=== PATIENT | female | born 1970 | race Caucasian/White ===

== ENCOUNTER 2023-07-16 08:21 | Outpatient (OUT) | payer BC, SELFPAY ==
--- NOTE | 2023-07-16 08:25 | MM_ITS ---
Patient Name: KRISTINA ESPOSITO MR#: [id number] : 1970 Exam Date: 07/16/2023 Ordering Doctor: DR Kar Myles . RADIOLOGY REPORT PROCEDURE: MM TOMOSYNTHESIS SCREENING BI COMPARISON: MG MAMM SCREEN URSULA W CAD, 08/29/2019. MG MAMM SCREEN 3D URSULA CAD, 05/16/2022. INDICATIONS: Screening Calculator Name NCI Breast Cancer Risk Assessment Tool 5 Year Breast Cancer Risk 0.60% Lifetime Breast Cancer Risk 5.20% Personal Breast Cancer No Personal Ovarian Cancer No Treatments None Family Cancers Grandmother-paternal with skin cancer at age ~60. LOCATION: [facility] BREAST COMPOSITION: Heterogeneously dense,which may obscure small masses. FINDINGS: DIAGNOSTIC CATEGORY 2--BENIGN FINDING. NO CHANGE FROM COMPARISON. Scattered benign-appearing calcifications are present. Scattered benign-appearing lymph nodes are present. RIGHT BREAST: No significant suspicious finding. LEFT BREAST: No significant suspicious finding. RECOMMENDATIONS: ROUTINE MAMMOGRAM AND CLINICAL EVALUATION IN 12 MONTHS. PLEASE NOTE: A NORMAL MAMMOGRAM DOES NOT EXCLUDE THE POSSIBILITY OF BREAST CANCER. A CLINICALLY SUSPICIOUS PALPABLE LUMP SHOULD BE BIOPSIED. Dictated by: Woody Lomax MD on 07/17/2023 at 08:23 Approved by: Woody Lomax MD on 07/17/2023 at 08:24
[2023-07-16 09:23] LABS: Basophils Absolute Auto 0.1 10^3/uL (0.0-0.1); Basophils Percent Auto 0.6 % (0.2-2.0); Eosinophils Absolute Auto 0.2 10^3/uL (0.0-0.7); Eosinophils Percent Auto 3.1 % (0.9-7.0); Hematocrit 43.6 % (36.0-48.0); Hemoglobin 14.6 g/dL (12.0-16.0); Immature Granulocytes Abs Auto 0.02 10^3/uL (0.00-0.03); Immature Granulocytes Pct Auto 0.3 % (0.0-0.5); Lymphocytes Absolute Auto 2.8 10^3/uL (1.2-3.8); Lymphocytes Percent Auto 35.4 % (20.5-60.0); Mean Corpuscular HGB Conc 33.5 g/dL (29.9-35.2); Mean Corpuscular Hemoglobin 28.6 pg (26.7-34.0); Mean Corpuscular Volume 85.5 fL (81.0-99.0); Mean Platelet Volume 9.4 fL (9.5-13.5); Monocytes Absolute Auto 0.5 10^3/uL (0.3-0.8); Monocytes Percent Auto 6.3 % (1.7-12.0); Neutrophils Absolute Auto 4.2 10^3/uL (1.4-6.5); Neutrophils Percent Auto 54.3 % (43.0-75.0); Platelet Count 241 10^3/uL (150-450); Red Cell Distribution Width 11.9 % (11.0-15.0); White Blood Count 7.8 10^3/uL (4.0-11.0)
[2023-07-16 10:00] LABS: Estimated Average Glucose 140 mg/dL; Glycohemoglobin A1C 6.5 % (4.5-6.2)
[2023-07-16 10:26] LABS: Anion Gap 13.2; BUN Creatinine Ratio 8.2; Calcium 8.9 mg/dL (8.5-10.1); Carbon Dioxide 26.8 mmol/L (21.0-32.0); Chloride 103 mmol/L (98-107); Chol HDL Ratio 4.8; Cholesterol 259 mg/dL (<=200); Estimated GFR (African America >60 (>=60); Estimated GFR (Non-African Ame >60 (>=60); Free T3 2.43 pg/mL (2.18-3.98); Glucose 126 mg/dL (74-106); HDL Cholesterol 54 mg/dL (40-60); Sodium 139 mmol/L (136-145); Thyroid Stimulating Hormone 3.335 uIU/mL (0.358-3.740); Triglycerides 127 mg/dL (<=150); VLDL CHOLESTEROL 25.4 mg/dL
== END 2023-07-16 08:22 | disposition home or self-care (01) ==
LOC: MAMMO 08:21
PROVIDERS: PCP Family Medicine; Visit Provider Family Medicine
DX: Z12.31 Encounter for screening mammogram for malignant neoplasm of breast (principal); Z00.00 Encounter for general adult medical examination without abnormal findings; E03.9 Hypothyroidism, unspecified; Z80.8 Family history of malignant neoplasm of other organs or systems
CPT/HCPCS: 36415; 77063; 77067; 80048; 80061; 83036; 84439; 84443; 84481; 85025

== ENCOUNTER 2024-10-09 12:54 | Outpatient (OUT) | payer BC, SELFPAY ==
[2024-10-09 13:09] LABS: Basophils Absolute Auto 0.1 10^3/uL (0.0-0.1); Basophils Percent Auto 0.6 % (0.2-2.0); Eosinophils Absolute Auto 0.3 10^3/uL (0.0-0.7); Eosinophils Percent Auto 2.7 % (0.9-7.0); Hematocrit 44.8 % (36.0-48.0); Hemoglobin 15.8 g/dL (12.0-16.0); Immature Granulocytes Abs Auto 0.03 10^3/uL (0.00-0.03); Immature Granulocytes Pct Auto 0.3 % (0.0-0.5); Lymphocytes Absolute Auto 3.7 10^3/uL (1.2-3.8); Lymphocytes Percent Auto 37.7 % (20.5-60.0); Mean Corpuscular HGB Conc 35.3 g/dL (29.9-35.2); Mean Corpuscular Hemoglobin 29.6 pg (26.7-34.0); Mean Corpuscular Volume 83.9 fL (81.0-99.0); Mean Platelet Volume 9.9 fL (9.5-13.5); Monocytes Absolute Auto 0.5 10^3/uL (0.3-0.8); Monocytes Percent Auto 5.5 % (1.7-12.0); Neutrophils Absolute Auto 5.2 10^3/uL (1.4-6.5); Neutrophils Percent Auto 53.2 % (43.0-75.0); Platelet Count 277 10^3/uL (150-450); Red Blood Count 5.34 10^6/uL (4.20-5.40); Red Cell Distribution Width 12.2 % (11.0-15.0); White Blood Count 9.8 10^3/uL (4.0-11.0)
[2024-10-09 13:25] LABS: Estimated Average Glucose 157 mg/dL; Glycohemoglobin A1C 7.1 % (4.5-6.2)
[2024-10-09 14:20] LABS: Alanine Aminotransferase 108 U/L (14-59); Albumin Globulin Ratio 0.8; Albumin Level 3.8 g/dL (3.4-5.0); Alkaline Phosphatase 128 U/L (46-116); Anion Gap 7.8; Aspartate Amino Transferase 58 U/L (15-37); BUN Creatinine Ratio 10.3; Bilirubin Direct 0.1 mg/dL (0.0-0.2); Bilirubin Total 0.7 mg/dL (0.2-1.0); Calcium 9.7 mg/dL (8.5-10.1); Carbon Dioxide 30.9 mmol/L (21.0-32.0); Chloride 98 mmol/L (98-107); Chol HDL Ratio 4.6; Cholesterol 257 mg/dL (<=200); Estimated GFR (African America 59 (>=60 mL/min/1.73m^2); Estimated GFR (Non-African Ame 49 (>=60 mL/min/1.73m^2); Globulin 4.6 g/dL; Glucose 167 mg/dL (74-106); HDL Cholesterol 56 mg/dL (40-60); Potassium 3.7 mmol/L (3.5-5.1); Sodium 133 mmol/L (136-145); Thyroid Stimulating Hormone 4.133 uIU/mL (0.358-3.740); Total Protein 8.4 g/dL (6.4-8.2); Triglycerides 144 mg/dL (<=150); VLDL CHOLESTEROL 28.8 mg/dL
[2024-10-09 14:38] LABS: Free T4 1.12 ng/dL (0.76-1.46)
== END 2024-10-09 12:55 | disposition home or self-care (01) ==
LOC: LAB 12:54
PROVIDERS: PCP Family Medicine; Visit Provider Family Medicine
DX: Z00.00 Encounter for general adult medical examination without abnormal findings (principal); E03.9 Hypothyroidism, unspecified
CPT/HCPCS: 36415; 80048; 80061; 80076; 83036; 84439; 84443; 85025

== ENCOUNTER 2024-11-14 08:35 | Outpatient (OUT) | payer BC, SELFPAY ==
--- NOTE | 2024-11-14 08:45 | US_ITS ---
The [address] [address] Patient Name: KRISTINA ESPOSITO MRN: [id number] date: 1970 Sex: F Assigned Patient Location: US Current Patient Location: Accession/Order Number: [id number] Exam Date: 11/14/2024 09:28 Report Date: 11/14/2024 09:30 At the request of: ANTOINETTE YADAV MD Procedure: US right upper quadrant EXAMINATION TYPE: US right upper quadrant DATE OF EXAM ORDERED: 11/14/2024 9:08 AM HISTORY: Elevated Liver Function Test, COMPARISON: NONE TECHNIQUE: Realtime imaging limited to the right upper quadrant was performed. FINDINGS: The gallbladder appears within normal limits without evidence of cholelithiasis. The gallbladder wall measures 2 mm in thickness. The common bile but measures 3 mm in diameter. No intrahepatic or extrahepatic biliary dilatation is seen. The liver is echogenic in respect to the right renal cortex suggesting hepatic steatosis. There is hepatopedal flow the main portal vein. Partial visualization of the right kidney reveals no gross hydronephrosis. Partial visualization of the pancreas reveals no abnormality. US/US right upper quadrant IMPRESSION: No sonographic evidence of acute cholecystitis. Findings suggest hepatic steatosis. Impression dictated by: Denzel Christianson M.D. 11/14/2024 9:30 AM Dictation Location: [place] [address] Electronically authenticated by: [id number] Y Date: 11/14/2024 09:30
--- OUTSIDE RECORDS SUMMARY | 2024-11-14 08:54 | XMS_ITS | CCD ---
Author Organization [facility] Care Team Providers Care Architecture Instructor Name Role Phone DR KAR YADAV Admitting Unavailable LEIF, DR KAR De La Rosa Attending Unavailable LEIF, DR KAR De La Rosa Primary Care Unavailable LEIF, DR KAR De La Rosa Consulting Unavailable LEIF, DR KAR De La Rosa Admitting Unavailable LEIF, DR KAR De La Rosa Attending Unavailable LEIF, DR KAR De La Rosa Primary Care Unavailable WEST, DR ANANTH Melo Consulting Unavailable LEIF, DR KAR De La Rosa Consulting Unavailable Kar Yadav MD Primary Care Provider Kar Yadav MD Unavailable Kar Yadav MD Primary Care Provider [phone] Kar Yadav MD Unavailable KAR YADAV Attending Unavailable ASHLEE VELAZCO Attending Unavailable LEIF, KAR Attending Unavailable Medications Current Medications Medication Drug Class(es) Dates Sig (Normalized) Sig (Original) atorvastatin 40 mg oral tablet (2 sources) HMG-CoA Reductase Inhibitor Start: 10-10-19 25 take 1 tablet by mouth at bedtime atorvastatin (Lipitor) 40 MG tablet Indications: Dyslipidemia (CMS/HCC) Take 1 tablet (40 mg) by mouth at bedtime 30 tablet 5 10/09/2024 Active codeine phosphate 2 mg/ml / guaiFENesin 20 mg/ml oral solution (2 sources) Opioid Agonist Start: 08-07-19 24 End: 08-14-19 24 take 10 mL by mouth every six hours for cough guaiFENesin-codeine (Robitussin-AC) 100-10 MG/5ML syrup Indications: Acute bronchitis due to other specified organisms Take 10 mL by mouth every 6 (six) hours if needed for cough for up to 7 days 150 mL 0 08/07/2023 08/14/2023 Active hydroCHLOROthiazide 25 mg oral tablet (6 sources) Thiazide Diuretic Start: 10-08-19 take 1 tablet by mouth once daily hydroCHLOROthiazide (HYDRODiuril) 25 MG tablet Indications: Benign essential hypertension (CMS/HCC) Take 1 tablet (25 mg) by mouth Daily 30 tablet 3 10/07/2024 Active levoFLOXacin 750 mg oral tablet (2 sources) Quinolone Antimicrobial Start: 08-07-19 End: 08-14-19 take 1 tablet by mouth in the morning levoFLOXacin (Levaquin) 750 MG tablet Indications: Acute bronchitis due to other specified organisms Take 1 tablet (750 mg) by mouth in the morning for 7 days. 7 tablet 0 08/07/2023 08/14/2023 Active levothyroxine sodium 0.075 mg oral tablet (15 sources) l-Thyroxine Start: 10-10-19 take 1 tablet by mouth once daily levothyroxine (Synthroid, Levoxyl) 75 MCG tablet Indications: Adult hypothyroidism (CMS/HCC) Take 1 tablet (75 mcg) by mouth Daily 90 tablet 3 10/09/2024 Active Start: 04-07-2024 End: 04-07-2025 take 1 tablet by mouth once daily levothyroxine (Synthroid, Levoxyl) 50 MCG tablet Indications: Adult hypothyroidism (CMS/HCC) Take 1 tablet (50 mcg) by mouth Daily 90 tablet 3 04/07/2024 10/09/2024 Discontinued (Reorder) Start: 03-20-2023 take 1 tablet by daryn th in the morning levothyroxine (Synthroid, Levoxyl) 50 MCG tablet Take 50 mcg by mouth in the morning. 03/20/2023 Active predniSONE 50 mg oral tablet (2 sources) Start: 08-07-2023 End: 08-13-2023 take 1 tablet by mouth in the morning predniSONE (Deltasone) 50 MG tablet Indications: Acute bronchitis due to other specified organisms Take 1 tablet (50 mg) by mouth in the morning for 6 days. 6 tablet 0 08/07/2023 08/13/2023 Active 72 hr scopolamine 0.0139 mg/hr transdermal system (6 sources) Anticholinergic Start: 10-07-2024 scopolamine (Transderm-Scop) 1 mg/72 hr patch 72 hour patch Indications: Motion sickness, initial encounter Place 1 patch on the skin every 3rd (third) day if needed (nausea) 4 patch 2 10/07/2024 Active 0.25 mg, 0.5 mg dose 1.5 ml semaglutide 1.34 mg/ml pen injector (7 sources) Start: 10-07-2024 End: 10-09-2024 semaglutide (Ozempic) 2 MG/1.5ML solution pen-injector Indications: Type 2 diabetes mellitus with hyperglycemia, without long-term current use of insulin ([facility]) 0.25 mg SC weekly x 4 weeks, then 0.5 mg weekly 1 each 3 10/09/2024 Active Problems Active Problems Problem Classification Problem Date Documented Date Episodic/Chronic Diabetes mellitus with complications (5 sources) Hyperglycemia due to type 2 diabetes mellitus; Translations: [Type 2 diabetes mellitus with hyperglycemia] Onset: 08-07-2023 10-09-2024 Chronic Disorders of lipid metabolism (15 sources) Dyslipidemia; Translations: [Hyperlipidemia, unspecified] Onset: 08-07-2023 08-07-2023 Chronic Essential hypertension (8 sources) Benign essential hypertension; Translations: [Essential (primary) hypertension] Onset: 08-07-2023 10-07-2024 Chronic Other injuries and conditions due to external causes (2 sources) Motion sickness; Translations: [Motion sickness, initial encounter] 10-07-2024 Episodic Other screening for suspected conditions (not mental disorders or infectious disease) (8 sources) Encounter for screening mammogram for malignant neoplasm of breast; Translations: [Cancer cervix screening status] Onset: 05-16-2022 Episodic Residual codes; unclassified (1 source) Family history of malignant neoplasm of other organs or systems; Translations: [FAM HX MALIG NEOPLASM OTH ORGN/SYS] Onset: 05-19-2022 Episodic Thyroid disorders (18 sources) Hypothyroidism, unspecified; Translations: [Hypothyroidism] Onset: 04-23-2022 08-07-2023 Chronic Past or Other Problems Problem Classification Problem Date Documented Da te Episodic/Chronic Acute bronchitis (15 sources) Acute infective bronchitis; Translations: [Acute bronchitis due to other specified organisms] Onset: 08-07-2023 Resolved: 04-04-2024 08-07-2023 Episodic Diabetes mellitus without complication (15 sources) Prediabetes; Translations: [Prediabetes] Onset: 08-07-2023 08-07-2023 Episodic Other circulatory disease (8 sources) Elevated blood-pressure reading without diagnosis of hypertension; Translations: [Elevated blood-pressure reading, without diagnosis of hypertension] Onset: 08-07-2023 08-07-2023 Episodic Results Test Name Value Interpretation Reference Range Facility ALL CBC WITH AUTO DIFFon BASOPHILS ABSOLUTE AUTO 0.1 [facility] Basophils/100 WBC (Bld) 0.6 % 0.2 - 2.0 % [facility] Eosinophils/100 WBC (Bld) 2.7 % 0.9 - 7.0 % [facility] Erythrocyte distribution width (RBC) [Ratio] 12.2 % 11.0 - 15.0 % [facility] Hematocrit (Bld) [Volume fraction] 44.8 % 36.0 - 48.0 % [facility] Hemoglobin (Bld) [Mass/Vol] 15.8 g/dL 12.0 - 16.0 g/dL [facility] IMMATURE GRANULOCYTES ABS AUTO 0.03 [facility] Immature granulocytes/100 WBC (Bld) 0.3 % 0.0 - 0.5 % [facility] Interpretation and review of laboratory results Abnormal [facility] LYMPHOCYTES ABSOLUTE AUTO 3.7 [facility] Lymphocytes/100 WBC (Bld) 37.7 % 20.5 - 60.0 % [facility] MCH (RBC) [Entitic mass] 29.6 pg 26.7 - 34.0 pg [facility] MCHC (RBC) [Mass/Vol] 35.3 g/dL High 29.9 - 35.2 g/dL [facility] MCV (RBC) [Entitic vol] 83.9 fL 81.0 - 99.0 fL [facility] MONOCYTES ABSOLUTE AUTO 0.5 [facility] Monocytes/100 WBC (Bld) 5.5 % 1.7 - 12.0 % [facility] NEUTROPHILS ABSOLUTE AUTO 5.2 [facility] Neutrophils/100 WBC (Bld) 53.2 % 43.0 - 75.0 % [facility] Platelet mean volume (Bld) [Entitic vol] 9.9 fL 9.5 - 13.5 fL [facility] are [facility] EO # 0.3 [facility] PLT 277 [facility] RBC 5.34 [facility] WBC 9[facility]8 [facility] MG MAMM SCREEN 3D URSULA CADon 05-16-2022 MG MAMM SCREEN 3D URSULA CAD Patient: WENDIE HUBBARD Exam Date: 05/16/2022 : 1970 Gender:F Ordering : DR KAR YADAV . Admission #: [id number] Family : Order #: [id number] CLICK HERE TO VIEW EXAM RADIOLOGY REPORT PROCEDURE: MAMMOGRAM SCREENING 3D BILATERAL CAD COMPARISON: MG MAMM SCREEN URSULA W CAD, 08/29/2019. INDICATIONS: Screening mammography Calculator Name NCI Breast Cancer Risk Assessment Tool 5 Year Breast Cancer Risk 0.50% Lifetime Breast Cancer Risk 5.30% Personal Breast Cancer No Personal Ovarian Cancer No Treatments None Family Cancers Grandmother-paternal with skin cancer at age 60. LOCATION: [facility] BREAST COMPOSITION: Heterogeneously dense,which may obscure small masses. FINDINGS: DIAGNOSTIC CATEGORY 1--NEGATIVE. NO CHANGE FROM COMPARISON ASSESSMENT. Scattered benign-appearing calcifications are present. Scattered benign-appearing lymph nodes are present. RIGHT BREAST: No significant suspicious finding. LEFT BREAST: No significant suspicious finding. RECOMMENDATIONS: ROUTINE MAMMOGRAM AND CLINICAL EVALUATION IN 12 MONTHS. PLEASE NOTE: A NORMAL MAMMOGRAM DOES NOT EXCLUDE THE POSSIBILITY OF BREAST CANCER. A CLINICALLY SUSPICIOUS PALPABLE LUMP SHOULD BE BIOPSIED. Dictated by: Ananth Lomax MD on 05/16/2022 at 10:46 Approved by: Ananth Lomax MD on 05/16/2022 at 10:49 Normal [facility] CBC AUTO DIFFon 04-19-2022 BASO # 0.0 103/ul Normal 0.0-0.1 [facility] Comment on above: Performed By: #### C BC #### [facility] [address] [place] [address] Dr. Cash Gray Basophils/100 WBC (Bld) 0.6 % Normal 0.2-2.0 [facility] Comment on above: Performed By: #### C BC #### [facility] [address] [place] [address] Dr. Cash Gray EO # 0.3 103/ul Normal 0.0-0.7 [facility] Comment on above: Performed By: #### C BC #### [facility] [address] [place] [address] Dr. Cash Gray Eosinophils/100 WBC (Bld) 3.9 % Normal 0.9-7.0 [facility] Comment on above: Performed By: #### C BC #### [facility] [address] [place] [address] Dr. Cash Gray Erythrocyte distribution width (RBC) [Ratio] 12.3 % Normal 11.0-15.0 [facility] Comment on above: Performed By: #### C BC #### [facility] [address] [place] [address] Dr. Cash Gray Hematocrit (Bld) [Volume fraction] 43.1 % Normal 36.0-48.0 [facility] Comment on above: Performed By: #### C BC #### [facility] [address] [place] [address] Dr. Cash Gray Hemoglobin (Bld) [Mass/Vol] 14.3 g/dL Normal 12.0-16.0 [facility] Comment on above: Performed By: #### C BC #### [facility] [address] [place] [address] Dr. Cash Gray IG # 0.02 10e3/ul Normal 0.00-0.03 [facility] Comment on above: Performed By: #### C BC #### [facility] [address] [place] [address] Dr. Cash Gray IG % 0.3 % Normal 0.0-0.5 [facility] Comment on above: Performed By: #### C BC #### [facility] [address] [place] [address] Dr. Cash Gray LYMPH # 2.6 103/ul Normal 1.2-3.8 [facility] Comment on above: Performed By: #### C BC #### [facility] [address] [place] [address] Dr. Cash Gray Lymphocytes/100 WBC (Bld) 36.3 % Normal 20.5-60.0 [facility] Comment on above: Performed By: #### C BC #### [facility] [address] [place] [address] Dr. Cash Gray MANUAL DIFF REQ NO Normal [facility] Comment on above: Performed By: #### C BC #### [facility] [address] [place] [address] Dr. Cash Gray MCH (RBC) [Entitic mass] 28.7 pg Normal 26.7-34.0 [facility] Comment on above: Performed By: #### C BC #### [facility] [address] [place] [address] Dr. Cash Gray MCHC (RBC) [Mass/Vol] 33.2 g/dL Normal 29.9-35.2 [facility] Comment on above: Performed By: #### C BC #### [facility] [address] [place] [address] Dr. Cash Gray MCV (RBC) [Entitic vol] 86.5 fL Normal 81.0-99.0 [facility] Comment on above: Performed By: #### C BC #### [facility] [address] [place] [address] Dr. Cash Gray MONO # 0.4 103/ul Normal 0.3-0.8 [facility] Comment on above: Performed By: #### C BC #### [facility] [address] [place] [address] Dr. Cash Gray Monocytes/100 WBC (Bld) 5.7 % Normal 1.7-12.0 [facility] Comment on above: Performed By: #### C BC #### [facility] [address] [place] [address] Dr. Cash Gray NEUT # 3.8 103/ul Normal 1.4-6.5 [facility] Comment on above: Performed By: #### C BC #### [facility] [address] [place] [address] Dr. Cash Gray Neutrophils/100 WBC (Bld) 53.2 % Normal 43.0-75.0 [facility] Comment on above: Performed By: #### C BC #### [facility] [address] [place] [address] Dr. Cash Gray Platelet mean volume (Bld) [Entitic vol] 10.6 fL Normal 9.5-13.5 [facility] Comment on above: Performed By: #### C BC #### [facility] [address] [place] [address] Dr. Cash Gray PLT 231 103/ul Normal 150-450 [facility] Comment on above: Performed By: #### C BC #### [facility] [address] [place] [address] Dr. Cash Gray RBC 4.98 106/ul Normal 4.20-5.40 [facility] Comment on above: Performed By: #### C BC #### [facility] [address] [place] [address] Dr. Cash Gray WBC 7.2 103/ul Normal 4.0-11.0 [facility] Comment on above: Performed By: #### C BC #### [facility] [address] [place] [address] Dr. Cash Gray FREE T3on 04-19-2022 FREE T3 2.65 pg/mlL Normal 2.18-3.98 [facility] Comment on above: Performed By: #### B MP, LIVER, LIPID, TSH, FT3 #### [facility] [address] [place] [address] Dr. Cash Gray FREE T4on 04-19-2022 Free T4 [Mass/Vol] 1.12 ng/dL Normal 0.76-1.46 [facility] Comment on above: Performed By: #### F T4 #### [facility] [address] [place] [address] Dr. Cash Gray GLYCOHEMOGLOBIN A1Con 2021 ADA RECOMMENDATION SEE BELOW Normal [facility] Comment on above: Result Comment: ADA RECOMMENDED LIMIT 4.0 - 6.0 ADA THERAPEUTIC TARGET < 7.0 ACTION SUGGESTED > 7.0 Performed By: #### A 1C #### [facility] [address] [place] [address] Dr. Cash Gray HbA1c (Bld) [Mass fraction] 6.0 % Normal 4.5-6.2 [facility] Comment on above: Performed By: #### A 1C #### [facility] [address] [address] [address] Cash Gray LIPID PROFILEon 04-19-2022 CHOL-HDL RATIO NORM SEE BELOW Normal [facility] Comment on above: Result Comment: 3.3 - 4.4 LOW RISK 4.4 - 7.1 AVERAGE RISK 7.1 - 11.0 MODERATE RISK >11.0 HIGH RISK Performed By: #### B MP, LIVER, LIPID, TSH, FT3 #### [facility] [address] [address] [address] Cash Gray Cholesterol [Mass/Vol] 260 mg/dL Critically high <=200 [facility] Comment on above: Performed By: #### B MP, LIVER, LIPID, TSH, FT3 #### [facility] [address] [address] [address] Cash Gray Cholesterol in HDL [Mass/Vol] 50 mg/dL Normal 40-60 [facility] Comment on above: Performed By: #### B MP, LIVER, LIPID, TSH, FT3 #### [facility] [address] [address] [address] Cash Gray Cholesterol in LDL [Mass/Vol] 190.0 mg/dL Normal [facility] Comment on above: Performed By: #### B MP, LIVER, LIPID, TSH, FT3 #### [facility] [address] [address] [address] Cash Gray Cholesterol.total/Ch olesterol in HDL [Mass ratio] 5.2 {ratio} Normal [facility] Comment on above: Performed By: #### B MP, LIVER, LIPID, TSH, FT3 #### [facility] [address] [address] [address] Cash Gray HDL NORMAL > or = 60 mg/dl - LOW CARDIOVASCULAR RISK <40 mg/dl - HIGH CARDIOVASCULAR RISK Normal [facility] Comment on above: Performed By: #### B MP, LIVER, LIPID, TSH, FT3 #### [facility] [address] [address] [address] Cash Gray LDL CALC NORMAL SEE BELOW Normal [facility] Comment on above: Result Comment: <100 mg/dl OPTIMAL 100 - 129 mg/dl NEAR OR ABOVE OPTIMAL 130 - 159 mg/dl BORDERLINE HIGH 160 - 189 mg/dl HIGH >190 mg/dl VERY HIGH Performed By: #### B MP, LIVER, LIPID, TSH, FT3 #### [facility] [address] [address] [address] Cash Gray Triglyceride [Mass/Vol] 100 mg/dL Normal <=150 [facility] Comment on above: Performed By: #### B MP, LIVER, LIPID, TSH, FT3 #### [facility] [address] [address] [address] Cash Gray VLDL CALC 20.0 mg/dL Normal [facility] Comment on above: Performed By: #### B MP, LIVER, LIPID, TSH, FT3 #### [facility] [address] [address] [address] Cash Gray LIVER PROFILEon 04-19-2022 Albumin [Mass/Vol] 3.5 g/dL Normal 3.4-5.[address] [facility] Comment on above: Performed By: #### B MP, LIVER, LIPID, TSH, FT3 #### [facility] [address] [address] [address] Cash Gray Albumin/Globulin [Mass ratio] 0.8 {ratio} Normal [facility] Comment on above: Performed By: #### B MP, LIVER, LIPID, TSH, FT3 #### [facility] [address] [address] [address] Cash Gray ALP [Catalytic activity/Vol] 113 U/L Normal 46-116 [facility] Comment on above: Performed By: #### B MP, LIVER, LIPID, TSH, FT3 #### [facility] [address] [address] [address] Cash Gray ALT [Catalytic activity/Vol] 61 U/L Critically high 14-59 [facility] Comment on above: Performed By: #### B MP, LIVER, LIPID, TSH, FT3 #### [facility] [address] [address] [address] Cash Gray AST [Catalytic activity/Vol] 26 U/L Normal 15-37 [facility] Comment on above: Performed By: #### B MP, LIVER, LIPID, TSH, FT3 #### [facility] [address] [place] [address] Dr. Cash VERGARAI, CONJUGATED 0.1 mg/dL Normal 0.0-0.2 [facility] Comment on above: Performed By: #### B MP, LIVER, LIPID, TSH, FT3 #### [facility] [address] [place] [address] Dr. Cash Gray Bilirubin [Mass/Vol] 0.2 mg/dL Normal 0.2-1.0 [facility] Comment on above: Performed By: #### B MP, LIVER, LIPID, TSH, FT3 #### [facility] [address] [place] [address] Dr. Cash Gray Globulin (S) [Mass/Vol] 4.3 g/dL Normal [facility] Comment on above: Performed By: #### B MP, LIVER, LIPID, TSH, FT3 #### [facility] [address] [place] [address] Dr. Cash Gray Protein [Mass/Vol] 7.8 g/dL Normal 6.4-8.2 [facility] Comment on above: Performed By: #### B MP, LIVER, LIPID, TSH, FT3 #### [facility] [address] [place] [address] Dr. Cash Gray PROF CHEM 8 (BAS METB)on Anion gap [Moles/Vol] 11.1 mmol/L Normal [facility] Comment on above: Performed By: #### B MP, LIVER, LIPID, TSH, FT3 #### [facility] [address] [place] [address] Dr. Cash Gray Calcium [Mass/Vol] 8.9 mg/dL Normal 8.5-10.1 [facility] Comment on above: Performed By: #### B MP, LIVER, LIPID, TSH, FT3 #### [facility] [address] [place] [address] Dr. Cash Gray Chloride [Moles/Vol] 104 mmol/L Normal 98-107 [facility] Comment on above: Performed By: #### B MP, LIVER, LIPID, TSH, FT3 #### [facility] [address] [place] [address] Dr. Cash Gray CO2 [Moles/Vol] 24.0 mmol/L Normal 21.0-32.0 [facility] Comment on above: Performed By: #### B MP, LIVER, LIPID, TSH, FT3 #### [facility] [address] [place] [address] Dr. Cash Gray Creatinine [Mass/Vol] 0.91 mg/dL Normal 0.55-1.02 [facility] Comment on above: Performed By: #### B MP, LIVER, LIPID, TSH, FT3 #### [facility] [address] [place] [address] Dr. Cash Gray EGFR-AF MALAGASY >60 Normal >=60 [facility] Comment on above: Performed By: #### B MP, LIVER, LIPID, TSH, FT3 #### [facility] [address] [place] [address] Dr. Cash Gray EGFR-NON AF MALAGASY >60 Normal >=60 [facility] Comment on above: Performed By: #### B MP, LIVER, LIPID, TSH, FT3 #### [facility] [address] [place] [address] Dr. Cash Gray Glucose [Mass/Vol] 126 mg/dL Normal [facility] Comment on above: Performed By: #### B MP, LIVER, LIPID, TSH, FT3 #### [facility] [address] [place] [address] Dr. Cash Gray Performed By: #### A 1C #### [facility] [address] [place] [address] Dr. Cash Gray Potassium [Moles/Vol] 4.1 mmol/L Normal 3.5-5.1 [facility] Comment on above: Performed By: #### B MP, LIVER, LIPID, TSH, FT3 #### [facility] [address] [place] [address] Dr. Cash Gray Sodium [Moles/Vol] 135 mmol/L Critically low 136-145 [facility] Comment on above: Performed By: #### B MP, LIVER, LIPID, TSH, FT3 #### [facility] [address] [address] [address] Cash Gray Urea nitrogen [Mass/Vol] 13.0 mg/dL Normal 7.0-18.0 [facility] Comment on above: Performed By: #### B MP, LIVER, LIPID, TSH, FT3 #### [facility] [address] [address] [address] Cash Gray Urea nitrogen/Creatinine [Mass ratio] 14.3 mg/mg Normal [facility] Comment on above: Performed By: #### B MP, LIVER, LIPID, TSH, FT3 #### [facility] [address] [place] [address] Dr. Cash Gray TSHon 04-19-2022 TSH 2.830 uIU/mL Normal 0.358-3.740 [facility] Comment on above: Performed By: #### B MP, LIVER, LIPID, TSH, FT3 #### [facility] [address] [place] [address] Dr. Cash Gray Vital Signs Date Time Vital Sign Value Performing Clinician Mykel camacho 10-07-2024 14:32-0400 Body height 167.6 cm Kar Yadav MD Work Phone: [facility] 10-07-2024 14:32-0400 Body mass index (BMI) [Ratio] 28.89 kg/m2 Kar Yadav MD Work Phone: [facility] 10-07-2024 14:32-0400 Body temperature 97.11 [degF] Kar Yadav MD Work Phone: [facility] 10-07-2024 14:32-0400 Body weight 81.19 kg Kar Yadav MD Work Phone: [facility] 10-07-2024 14:32-0400 Diastolic blood pressure 106 mm[Hg] Kar Yadav MD Work Phone: [facility] 10-07-2024 14:32-0400 Heart rate 108 /min Kar Yadav MD Work Phone: [facility] 10-07-2024 14:32-0400 Respiratory rate 22 /min Kar Yadav MD Work Phone: [facility] 10-07-2024 14:32-0400 SaO2% (BldA) [Mass fraction] 98 % Kar Yadav MD Work Phone: [facility] 10-07-2024 14:32-0400 Systolic blood pressure 200 mm[Hg] Kar Yadav MD Work Phone: [facility] 04-15-2024 10:12-0400 Body height 167.6 cm Ashlee Velazco DO Work Phone: [facility] 04-15-2024 10:12-0400 Body mass index (BMI) [Ratio] 28.08 kg/m2 Ashlee Velazco DO Work Phone: [facility] 04-15-2024 10:12-0400 Body weight 78.93 kg Ashlee Velazco DO Work Phone: [facility] 04-15-2024 10:12-0400 Diastolic blood pressure 92 mm[Hg] Ashlee Velazco DO Work Phone: [facility] 04-15-2024 10:12-0400 Systolic blood pressure 138 mm[Hg] Ashlee Velazco DO Work Phone: [facility] 04-04-2024 10:50-0400 Body height 167.6 cm Kar Yadav MD Work Phone: [facility] 04-04-2024 10:50-0400 Body mass index (BMI) [Ratio] 28.41 kg/m2 Kar Yadav MD Work Phone: [facility] 04-04-2024 10:50-0400 Body temperature 97.5 [degF] Kar Yadav MD Work Phone: [facility] 04-04-2024 10:50-0400 Body weight 79.83 kg Kar Yadav MD Work Phone: [facility] 04-04-2024 10:50-0400 Diastolic blood pressure 70 mm[Hg] Kar Yadav MD Work Phone: [facility] 04-04-2024 10:50-0400 Heart rate 100 /min Kar Yadav MD Work Phone: [facility] 04-04-2024 10:50-0400 Respiratory rate 20 /min Kar Yadav MD Work Phone: [facility] 04-04-2024 10:50-0400 SaO2% (BldA) [Mass fraction] 98 % Kar Yadav MD Work Phone: [facility] 04-04-2024 10:50-0400 Systolic blood pressure 130 mm[Hg] Kar Yadav MD Work Phone: [facility] 08-07-2023 15:39-0500 Body height 167.6 cm Kar Yadav MD Work Phone: [facility] 08-07-2023 15:39-0500 Body mass index (BMI) [Ratio] 27.44 kg/m2 Kar Yadav MD Work Phone: [facility] 08-07-2023 15:39-0500 Body temperature 98.71 [degF] Kar Yadav MD Work Phone: [facility] 08-07-2023 15:39-0500 Body weight 77.11 kg Kar Yadav MD Work Phone: [facility] 08-07-2023 15:39-0500 Diastolic blood pressure 90 mm[Hg] Kar Yadav MD Work Phone: [facility] 08-07-2023 15:39-0500 Heart rate 114 /min Kar Yadav MD Work Phone: [facility] 08-07-2023 15:39-0500 SaO2% (BldA) [Mass fraction] 96 % Kar Yadav MD Work Phone: [facility] 08-07-2023 15:39-0500 Systolic blood pressure 150 mm[Hg] Kar Yadav MD Work Phone: [facility] Encounters Encounter Date Encounter Type Care Provider Facility Start: 10-09-2024 End: 10-09-2024 Clinisync Result Encounter Kar Yadav MD Work Phone: [facility] External Department Unsolicited Start: 10-09-2024 End: 10-09-2024 Clinisync Result Encounter Kar Yadav MD Work Phone: [facility] External Department Unsolicited Start: 10-09-2024 End: 10-09-2024 Orders Only Kar Yadav MD Work Phone: [facility] Comment on above: Type 2 diabetes win itus with hyperglycemia, without long-term current use of insulin (CMS/HCC) (Primary Dx) Dyslipidemia (CMS/HC C) (Primary Dx); Adult hypothyroidism (CMS/HCC) Elevated liver funct ion tests (Primary Dx) Start: 10-07-2024 End: 10-07-2024 Office outpatient visit 25 minutes Kar Yadav MD Work Phone: [facility] Comment on above: Benign essential hyp ertension (CMS/HCC) (Primary Dx); Adult hypothyroidism (CMS/HCC); Pre-diabetes; Annual physical exam; Motion sickness, initial encounter Start: 10-07-2024 End: 10-07-2024 Patient encounter procedure Kar Yadav MD Work Phone: [facility] Start: 10-07-2024 End: 10-07-2024 ambulatory KAR YADAV Not Available Start: 10-07-2024 End: 10-07-2024 Bamboo flowsheet Kar Yadav MD Work Phone: [facility] Start: 10-07-2024 End: 10-07-2024 Bamboo flowsheet Kar Yadav MD Work Phone: [facility] Start: 04-15-2024 End: 04-15-2024 Patient encounter status Ashlee Velazco DO Work Phone: [facility] Start: 04-15-2024 End: 04-15-2024 Periodic preventive med est patient 40-64yrs Ashlee Velazco DO Work Phone: [facility] Comment on above: Encounter for gyneco logical examination without abnormal finding (Primary Dx); Screening for malignant neoplasm of cervix; Breast cancer screening by mammogram Start: 04-15-2024 End: 04-15-2024 ambulatory ASHLEE VELAZCO Not Available Start: 04-04-2024 End: 04-04-2024 Bamboo flowsheet Kar Yadav MD Work Phone: [facility] Start: 04-04-2024 End: 04-04-2024 Bamboo flowsheet Kar Yadav MD Work Phone: [facility] Start: 04-04-2024 End: 04-04-2024 Patient encounter procedure Kar Yadav MD Work Phone: [facility] Work Phone: Start: 04-04-2024 End: 04-04-2024 Periodic preventive med est patient 40-64yrs Kar Yadav MD Work Phone: [facility] Comment on above: Annual physical exam (Primary Dx) Start: 04-04-2024 End: 04-04-2024 ambulatory KAR YADAV Not Available Start: 08-07-2023 End: 08-07-2023 Office outpatient visit 15 minutes Kar Yadav MD Work Phone: [facility] Comment on above: Acute bronchitis due to other specified organisms (Primary Dx) Start: 08-07-2023 Bamboo flowsheet Kar Yadav MD Work Phone: [facility] Start: 08-07-2023 Bamboo flowsheet Kar Yadav MD Work Phone: [facility] Start: 05-16-2022 End: 05-17-[address] KAR YADAV Facility:[facility] Start: 04-23-2022 Encounter for genera l adult medical examination without abnormal findings DR KAR YADAV [facility] Start: 04-19-2022 End: 04-20-[address] KAR YADAV Facility:[facility] Start: 04-19-2022 End: 04-20-2022 Encounter for general adult medical examination without abnormal findings DR KAR YADAV Facility:[facility] Procedures Date Procedure Procedure Detail Performing Clinician Start: 10-09-2024 ALL CBC WITH AUTO DIFF Kar Yadav MD Work Phone: Start: 07-17-2023 Mammography Kar phillips MD Work Phone: Start: 04-10-2023 Microscopic observat ion [Identifier] in Cervix by Cyto stain Kar Yadav MD Work Phone: Plan of Treatment Date Care Activity Detail Author Start: 04-15-2029 Screening for malign ant neoplasm of cervix [facility] Start: 04-10-2028 Screening for malign ant neoplasm of cervix [facility] Start: 05-07-2026 Screening for malign ant neoplasm of colon [facility] Start: 04-10-2026 Screening for malign ant neoplasm of cervix Pap Smear [facility] Start: 04-20-2025 End: 04-20-2025 Patient encounter procedure 04/20/2025 11:15 AM EDT Office Visit [facility] [address] [place] [address] Ashlee Velazco DO [address] [place] [address] [facility] Start: 03-02-2025 Influenza vaccination Influenz a Vaccine (Season Ended) [facility] Start: 11-20-2024 End: 11-20-2024 Patient encounter procedure 11/20/2024 11:15 AM EDT Office Visit [facility] [address] [place] [address] Kar Yadav MD [address] [place] [address] [facility] Start: 10-09-2024 End: 10-09-2025 Hepatitis 1996 panel - Serum Hepatitis panel, acute Lab Routine Elevated liver function tests Expected: 10/09/2024 (Approximate), Expires: 10/09/2025 [facility] Comment on above: Expected: 10/09/2024 (Approximate), Expires: 10/09/2025 Start: 10-09-2024 End: 10-09-2025 US Abdomen limited US LIVER Imaging Routine Elevated liver function tests Expected: 10/09/2024, Expires: 10/09/2025 [facility] Work Phone: Comment on above: Expected: 10/09/2024 , Expires: 10/09/2025 Start: 10-07-2024 End: 10-07-2024 Patient encounter procedure 10/07/2024 2:15 PM EDT Office Visit [facility] [address] [place] [address] Kar Yadav MD [address] [place] [address] [facility] Comment on above: Arrived Start: 10-07-2024 End: 10-07-2025 Basic metabolic 1998 panel - Serum or Plasma Basic metabolic panel Lab Routine Annual physical exam Expected: 10/07/2024 (Approximate), Expires: 10/07/2025 [facility] Comment on above: Expected: 10/07/2024 (Approximate), Expires: 10/07/2025 Start: 10-07-2024 End: 10-07-2025 CBC W Auto Differential panel - Blood CBC and differential Lab Routine Annual physical exam Expected: 10/07/2024 (Approximate), Expires: 10/07/2025 [facility] Comment on above: Expected: 10/07/2024 (Approximate), Expires: 10/07/2025 Start: 10-07-2024 End: 10-07-2025 Hemoglobin A1c/Hemoglobin.total in Blood Hemoglobin A1c Lab Routine Annual physical exam Expected: 10/07/2024 (Approximate), Expires: 10/07/2025 [facility] Work Phone: Comment on above: Expected: 10/07/2024 (Approximate), Expires: 10/07/2025 Start: 10-07-2024 End: 10-07-2025 Hepatic function 2000 panel - Serum or Plasma Hepatic function panel Lab Routine Annual physical exam Expected: 10/07/2024 (Approximate), Expires: 10/07/2025 [facility] Comment on above: Expected: 10/07/2024 (Approximate), Expires: 10/07/2025 Start: 10-07-2024 End: 10-07-2025 Lipid 1996 panel - Serum or Plasma Lipid panel Lab Routine Annual physical exam Expected: 10/07/2024 (Approximate), Expires: 10/07/2025 [facility] Comment on above: Expected: 10/07/2024 (Approximate), Expires: 10/07/2025 Start: 10-07-2024 End: 10-07-2025 Thyrotropin [Units/volume] in Serum or Plasma TSH Lab Routine Annual physical exam Expected: 10/07/2024 (Approximate), Expires: 10/07/2025 [facility] Comment on above: Expected: 10/07/2024 (Approximate), Expires: 10/07/2025 Start: 10-07-2024 End: 10-07-2025 Thyroxine (T4) free [Mass/volume] in Serum or Plasma T4, free Lab Routine Adult hypothyroidism (CMS/HCC) Expected: 10/07/2024 (Approximate), Expires: 10/07/2025 [facility] Comment on above: Expected: 10/07/2024 (Approximate), Expires: 10/07/2025 Start: 10-06-2024 End: 10-06-2024 Patient encounter procedure 10/06/2024 9:00 AM EDT Office Visit [facility] [address] [place] [phone] Kar Yadav MD [address] [place] [phone] [facility] Start: 08-07-2024 Screening for malign ant neoplasm of colon Colorectal Cancer Screening [facility] Comment on above: Postponed from 10/10 (Patient Refused) Start: 07-17-2024 Screening for malign ant neoplasm of breast Mammogram [facility] Start: 04-15-2024 End: 04-15-2024 Patient encounter procedure 04/15/2024 10:15 AM EDT Office Visit [facility] [address] [place] [address] Ashlee Velazco DO [address] [place] [address] [facility] Start: 04-04-2024 End: 04-04-2024 Patient encounter procedure 04/04/2024 10:45 AM EDT Office Visit [facility] [address] [place] [address] Kar Yadav MD [address] [place] [phone] Arrived [facility] Comment on above: Arrived Start: 03-02-2024 Influenza vaccination Influenza Vacc ine (#1) [facility] Start: 08-07-2023 End: 08-07-2023 Patient encounter procedure 08/07/2023 3:45 PM EST Office Visit [facility] [address] [place] [address] Kar Yadav MD [address] [place] [phone] Arrived [facility] Comment on above: Arrived Start: 03-02-2023 Influenza vaccination Influenza Vacc ine (#1) [facility] Start: 1993 Screening for malign ant neoplasm of cervix Pap Smear [facility] Start: 10-11-1991 Urine screening for protein Diabetes: Urine Protein Screening [facility] Start: 1982 Glaucoma screening Diabetes: R etinopathy Screening [facility] Start: 1972 Hemoglobin A1c measurement Diabetes: Hemoglobin A1C [facility] Start: 1972 Screening for malign ant neoplasm of colon [facility] IGP, APT HPV,RFX 16/18,45 IGP, APT HPV,RFX 16/18,45 Lab Routine Screening for malignant neoplasm of cervix Ordered: 04/15/2024 [facility] Work Phone: Comment on above: Ordered: 04/15/2024 Payers Date Payer Category Payer [facility] BCBS Memb er Subscriber Plan / Payer (Effective 2021-Present) Name: Wendie Hubbard Jill Relation to Subscriber: Self Name: Stevie Wendie Melchor Payer ID: Not on file Type: Not on file Address: [address] [place] [id number] 2021 Unknown BCBS BCBS xxxxxx [id number] 2021-Present [phone] [address] [place] [id number] 1972 Unknown [id number] 1972 Unknown [id number] 1972 Unknown [id number] 1972 Unknown [id number] 1972 Unknown [id number] 1959 Unknown [id number] Social History Date Type Detail Facility Start: 04-10-2023 Tobacco smoking status MEIS Never sm oked tobacco [facility] Start: 04-10-2023 Tobacco use and exposure Smoke less tobacco non-user [facility] Start: 04-17-2023 End: 10-07-2024 Alcohol intake Ex-drinker (finding) [facility] Start: 08-07-2023 End: 10-02-2024 [facility] of Social function [facility] Start: 08-07-2023 End: 10-02-2024 Humiliation, Afraid, Rape, and Kick questionnaire [HARK] [facility] Within the last year , have you been afraid of your partner or ex-partner? No [facility] Do you belong to any clubs or organizations such as anglican groups, unions, fraternal or athletic groups, or school groups? Yes [facility] Are you now , , , , never or living with a partner? [facility] How often to you hav e a drink containing alcohol? Never [facility] How many standard dr inks containing alcohol do you have on a typical day? Patient does not drink [facility] Do you feel stress - tense, restless, nervous, or anxious, or unable to sleep at night because your mind is troubled all the time - these days [OSQ] Not at all [facility] (I/We) worried wheth er (my/our) food would run out before (I/we) got money to buy more. Never true [facility] Start: 1970 Sex Assigned At Not on file [facility] Do you feel stress - tense, restless, nervous, or anxious, or unable to sleep at night because your mind is troubled all the time - these days [OSQ] Only a little [facility] Clinical Notes 08-07-2023 to 10-07-2024 Kar Yadav MD - 10/07/2024 3:12 PM Nena Yadav MD - 10/07/2024 3:12 PM Nena Yadav MD - 10/07/2024 3:12 PM Nena Yadav MD - 10/07/2024 2:15 PM EDT Note Date & Type Note Facility 10-07-2024 History of Presen t illness Narrative Associated Problem(s): Pre-diabetes Check labs. Start ozempic. Associated Problem(s): Benign essential hypertension (CMS/HCC) BP again elevated and start treatment for HTN with hydrochlorothiazide. Discussed DASH diet. Associated Problem(s): Adult hypothyroidism (CMS/HCC) No signs of low thyroid and check labs. Images from the original note were not included. Subjective Patient ID: Wendie Hubbard is a 53 y.o. female who presents for Follow-up (6 M). Follow up elevated BP and thyroid. Checking BP PRN and typically elevated. BP 150s systolic over 90s diastolic. BP 100/106 today. Weight up 9 pounds in past year. Taking synthroid daily and no signs of abnormal thyroid. No fatigue or changes to skin, nails, or hair. Interested in weight loss medication. Last year labs abnormal and prediabetes. Due for labs. Review of Systems Respiratory: Negative for cough, shortness of breath and wheezing. Cardiovascular: Negative for chest pain and palpitations. Gastrointestinal: Negative for abdominal pain, diarrhea, nausea and vomiting. Genitourinary: Negative for dysuria. Objective Physical Exam Constitutional: General: She is not in acute distress. Appearance: Normal appearance. HENT: Head: Normocephalic. Right Ear: Tympanic membrane normal. Left Ear: Tympanic membrane normal. Eyes: Extraocular Movements: Extraocular movements intact. Pupils: Pupils are equal, round, and reactive to light. Cardiovascular: Rate and Rhythm: Normal rate and regular rhythm. Heart sounds: No murmur heard. No friction rub. No gallop. Pulmonary: Effort: Pulmonary effort is normal. Breath sounds: Normal breath sounds. No wheezing, rhonchi or rales. Abdominal: General: Bowel sounds are normal. There is no distension. Palpations: Abdomen is soft. Tenderness: There is no abdominal tenderness. There is no guarding or rebound. Musculoskeletal: Cervical back: Neck supple. Right lower leg: No edema. Left lower leg: No edema. Neurological: Mental Status: She is alert. Assessment/Plan Problem List Items Addressed This Visit Benign essential hypertension (CMS/HCC) - Primary BP again elevated and start treatment for HTN with hydrochlorothiazide. Discussed DASH diet. Relevant Medications hydroCHLOROthiazide (HYDRODiuril) 25 MG tablet Adult hypothyroidism (CMS/HCC) No signs of low thyroid and check labs. Relevant Orders T4, free Pre-diabetes Check labs. Start ozempic. Relevant Medications semaglutide (Ozempic) 2 MG/1.5ML solution pen-injector Annual physical exam Relevant Orders Hemoglobin A1c Basic metabolic panel CBC and differential Hepatic function panel Lipid panel TSH Other Visit Diagnoses Motion sickness, initial encounter Relevant Medications scopolamine (Transderm-Scop) 1 mg/72 hr patch 72 hour patch documented in this encounter [facility] 04-15-2024 History of Presen t illness Narrative Images from the original note were not included. Ashlee Velazco, DO Obstetrics and Gynecology Wendie Hubbard 1970 04/15/24 [id number] Yearly Wellness Exam Chief Complaint Patient presents with Gynecologic Exam LMP: 2020 HRT: none Last pap 04-10-23 neg. Last mammogram 07-16-23 TB - PCP orders Denies breast, urinary, or bowel concerns. Visit Vitals BP (!) 138/92 Ht 5' 6 Wt 174 lb BMI 28.08 kg/m OB Status Postmenopausal Smoking Status Never BSA 1.92 m OB History Para Term AB Living 4 4 4 SAB IAB Ectopic Multiple Live Births 4 # Outcome Date GA Lbr [place]/2nd Weight Sex Type Anes PTL Lv 4 Para Vag-Spont PIYUSH 3 Para Vag-Spont PIYUSH 2 Para Vag-Spont PIYUSH 1 Para Vag-Spont PIYUSH Obstetric Comments Heaviest weighed 7 lbs 15 oz Current Outpatient Medications Medication Sig Dispense Refill levothyroxine (Synthroid, Levoxyl) 50 MCG tablet Take 1 tablet (50 mcg) by mouth Daily 90 tablet 3 No current facility-administered medications for this visit. No Known Allergies Past Surgical History: Procedure Laterality Date TUBAL LIGATION 2010 VAGINAL DELIVERY x4 Past Medical History: Diagnosis Date Acid reflux Hypothyroidism ([facility]) 2020 x5 Seasonal allergies Varicella zoster ROS Const: Denies appetite change, fever, chills. Allergy: Denies medication reaction. Ocular: Denies visual acuity change. ENT: Denies hearing change. Endoc: Denies weight loss. Resp: Denies dyspnoea, wheezing. Cardiac: Denies angina, palpitations. GI: Denies nausea, vomiting. Haem: Denies bleeding. : Denies incontinence. MSK: Denies arthralgias, joint oedema. Derm: Denies rash, hair loss. Neuro: Denies ataxia, tremor. Also see HPI for elements of ROS documented therein and for details of positive findings, which shall supersede the foregoing. EXAM GENERAL EXAMINATION alert oriented well developed, well nourished. HEAD: normocephalic atraumatic. EYES: sclera anicteric. EARS: no obvious hearing deficit. NECK/THYROID: neck supple no cervical lymphadenopathy no thyromegaly. LYMPH NODES: no axillary, supraclavicular or inguinal adenopathy. SKIN: warm and dry. HEART: regular rate and rhythm. LUNGS: clear to auscultation bilaterally. CHEST:axillary nodes grossly normal. BREASTS:no masses palpable bilaterally, normal nipples bilaterally - everted -finely cystic - dense - well supported- axilla negative. ABDOMEN: soft, nontender, nondistended, no masses palpable. BACK: no costovertebral angle tenderness, no obvious scoliosis/kyphosis. 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 1 pelvic prolapse. RECTAL:normal tone , no masses palpable , only small external hemorrhoids. EXTREMITIES no edema. NEUROLOGIC: alert and oriented. PSYCH: cooperative with exam. ICD-10-CM 1. Encounter for gynecological examination without abnormal finding Z01.419 Pelvic and breast exam completed. Findings of today's exam discussed with the patient. Continue MSBE. Ca/Vit D recommendations reviewed with the patient. The patient is to contact the office with any changes to her gynecological condition or any changes with breast or bleeding. The patient is to return in 1 year or as needed. She discussed some night sweats. Would like to try, OTC, discussed Estroven. May try for 30 days see if helps, if not discontinue. 2. Screening for malignant neoplasm of cervix Z12.4 IGP, APT HPV,RFX 16/18,45 Thinprep collected. Will notify patient if results are abnormal. 3. Breast cancer screening by mammogram Z12.31 Ordered by PCP Entered by Kaycee Spicer MA acting as scribe for Dr. Ashlee Velazco. Signature Kaycee Spicer MA Date 04/15/24 . Time 10:34 AM . The documentation recorded by the scribe accurately reflects the service(s) I personally performed and the decisions I made. Signature Hailey Velazco D.O. Date 04/15/24 Time 5:00PM. documented in this encounter [facility] 04-04-2024 History of Presen t illness Narrative Associated Problem(s): Annual physical exam Due for labs. Cologuard normal May 2023. Discussed proper diet and regular aerobic exercise. Need aerobic exercise 5-6 days a week for 30 minutes at a time. Smaller portions and limit total calories. Tetanus every 10 years. Advised not to smoke. Images from the original note were not included. Subjective Patient ID: Wendie Hubbard is a 53 y.o. female who presents for Annual Exam (wellness). Presents for annual PE. Patient feels well today. Weight unchanged over the past year. Active and walks several days a week. Tries to watch diet and eat healthy. Increased fruits and vegetables. Smaller portions and limits snacking. Tries to limit total daily calories. Due for labs. Review of Systems Respiratory: Negative for cough, shortness of breath and wheezing. Cardiovascular: Negative for chest pain and palpitations. Gastrointestinal: Negative for abdominal pain, diarrhea, nausea and vomiting. Genitourinary: Negative for dysuria. Objective Physical Exam Constitutional: General: She is not in acute distress. Appearance: Normal appearance. HENT: Head: Normocephalic. Right Ear: Tympanic membrane normal. Left Ear: Tympanic membrane normal. Eyes: Extraocular Movements: Extraocular movements intact. Pupils: Pupils are equal, round, and reactive to light. Cardiovascular: Rate and Rhythm: Normal rate and regular rhythm. Heart sounds: No murmur heard. No friction rub. No gallop. Pulmonary: Effort: Pulmonary effort is normal. Breath sounds: Normal breath sounds. No wheezing, rhonchi or rales. Abdominal: General: Bowel sounds are normal. There is no distension. Palpations: Abdomen is soft. Tenderness: There is no abdominal tenderness. There is no guarding or rebound. Musculoskeletal: General: No swelling or tenderness. Cervical back: Neck supple. Right lower leg: No edema. Left lower leg: No edema. Skin: Findings: No erythema or rash. Neurological: General: No focal deficit present. Mental Status: She is alert and oriented to person, place, and time. Cranial Nerves: No cranial nerve deficit. Motor: No weakness. Gait: Gait normal. Assessment/Plan Problem List Items Addressed This Visit Annual physical exam - Primary Due for labs. Cologuard normal May 2023. Discussed proper diet and regular aerobic exercise. Need aerobic exercise 5-6 days a week for 30 minutes at a time. Smaller portions and limit total calories. Tetanus every 10 years. Advised not to smoke. documented in this encounter [facility] 08-07-2023 History of Presen t illness Narrative Associated Problem(s): Acute bronchitis due to other specified organisms Take antibiotics for 7 days. Use prednisone for inflammation. Use sudafed or other decongestants as needed. Use Robitussin or Robitussin-DM for cough. Can use afrin for congestion but no longer than 3 days. Can use Mucinex to bring up phlegm. Use Motrin or Tylenol as needed for fever, aches, or pains. Increase fluid intake and rest. Should improve over next 5-7 days and if no better or worse call for re-evaluation. Subjective Patient ID: Wendie Hubbard is a 52 y.o. female who presents for Cough. C/o cough, congestion, and rhinorrhea x 11 days. Afebrile. Severe fatigue and no energy. Frequent cough dry and nonproductive. Chest tight and SOB. Frequent coughing spells and not sleeping well. MILLER and sinus pressure in forehead and cheeks along with postnasal drip. Ears plugged and popping. Sore throat and pain to swallow. Mild nausea. Denies recent sick contacts. Using OTC medication and mild relief. No improvement in symptoms since onset. Review of Systems Respiratory: Positive for cough and shortness of breath. Negative for wheezing. Cardiovascular: Negative for chest pain and palpitations. Gastrointestinal: Negative for abdominal pain, diarrhea, nausea and vomiting. Genitourinary: Negative for dysuria. Objective Physical Exam Constitutional: General: She is not in acute distress. Appearance: Normal appearance. HENT: Head: Normocephalic. Right Ear: Tympanic membrane normal. Left Ear: Tympanic membrane normal. Eyes: Extraocular Movements: Extraocular movements intact. Pupils: Pupils are equal, round, and reactive to light. Cardiovascular: Rate and Rhythm: Normal rate and regular rhythm. Heart sounds: No murmur heard. No friction rub. No gallop. Pulmonary: Effort: Pulmonary effort is normal. Breath sounds: Normal breath sounds. No wheezing, rhonchi or rales. Abdominal: General: Bowel sounds are normal. There is no distension. Palpations: Abdomen is soft. Tenderness: There is no abdominal tenderness. There is no guarding or rebound. Musculoskeletal: Cervical back: Neck supple. Right lower leg: No edema. Left lower leg: No edema. Neurological: Mental Status: She is alert. Assessment/Plan Problem List Items Addressed This Visit Acute bronchitis due to other specified organisms - Primary Take antibiotics for 7 days. Use prednisone for inflammation. Use sudafed or other decongestants as needed. Use Robitussin or Robitussin-DM for cough. Can use afrin for congestion but no longer than 3 days. Can use Mucinex to bring up phlegm. Use Motrin or Tylenol as needed for fever, aches, or pains. Increase fluid intake and rest. Should improve over next 5-7 days and if no better or worse call for re-evaluation. Relevant Medications levoFLOXacin (Levaquin) 750 MG tablet predniSONE (Deltasone) 50 MG tablet guaiFENesin-codeine (Robitussin-AC) 100-10 MG/5ML syrup documented in this encounter [facility] Evaluation note Diagnosis Acute bronchitis due to other specified organisms- Primary [facility] Diagnosis Annual physical exam- Primary Routine general medical examination at a health care facility [facility] Diagnosis Annual physical exam- Primary Routine general medical examination at a health care facility Encounter for gynecological examination without abnormal finding- Primary Screening for malignant neoplasm of cervix Screening for malignant neoplasm of the cervix Breast cancer screening by mammogram [facility] Diagnosis Annual physical exam- Primary Routine general medical examination at a health care facility Benign essential hypertension (CMS/HCC)- Primary Essential hypertension, benign Adult hypothyroidism (CMS/HCC) Unspecified hypothyroidism Pre-diabetes Other abnormal glucose Annual physical exam Routine general medical examination at a health care facility Motion sickness, initial encounter [facility] Diagnosis Annual physical exam- Primary Routine general medical examination at a health care facility Benign essential hypertension (CMS/HCC)- Primary Essential hypertension, benign Adult hypothyroidism (CMS/HCC) Unspecified hypothyroidism Pre-diabetes Other abnormal glucose Annual physical exam Routine general medical examination at a health care facility Motion sickness, initial encounter Type 2 diabetes mellitus with hyperglycemia, without long-term current use of insulin (CMS/HCC)- Primary [facility] Diagnosis Annual physical exam- Primary Routine general medical examination at a health care facility Benign essential hypertension (CMS/HCC)- Primary Essential hypertension, benign Adult hypothyroidism (CMS/HCC) Unspecified hypothyroidism Pre-diabetes Other abnormal glucose Annual physical exam Routine general medical examination at a health care facility Motion sickness, initial encounter Dyslipidemia (CMS/HCC)- Primary Other and unspecified hyperlipidemia Adult hypothyroidism (CMS/HCC) Unspecified hypothyroidism [facility] Diagnosis Annual physical exam- Primary Routine general medical examination at a health care facility Benign essential hypertension (CMS/HCC)- Primary Essential hypertension, benign Adult hypothyroidism (CMS/HCC) Unspecified hypothyroidism Pre-diabetes Other abnormal glucose Annual physical exam Routine general medical examination at a health care facility Motion sickness, initial encounter Elevated liver function tests- Primary Other abnormal blood chemistry documented in this encounter [facility] Summary Purpose Family History No Family History Records FoundNo Family History Records Found Advance Directives No Advanced Directives Records FoundNo Advanced Directives Records Found Additional Source Comments INFORMATION SOURCE (unrecogn ized section and content) DATE CREATED AUTHOR 05/20/2022 [facility] DATE CREATED AUTHOR AUTHOR'S ORGANIZ ATION 10/09/2024 [facility] Care Teams (unrecognized sec tion and content) Architecture Instructor Relationship Specialty Start Date End Date Kar Yadav MD PCP - General 04/03/23 Kar Yadav MD [address] [place] [address] PCP - [facility] [employer] 07/02/23 Architecture Instructor Relationship Specialty Start Date End Date Kar Yadav MD [address] [place] [address] PCP - [facility] [employer] 07/02/23 Kar Yadav MD [address] [place] [address] PCP - General Family Medicine 08/07/23 Architecture Instructor Relationship Specialty Start Date End Date Kar Yadav MD [address] [place] [phone] PCP - [facility] [employer] 06/01/23 Kar Yadav MD [address] [place] [address] PCP - General Family Medicine 08/07/23 Architecture Instructor Relationship Specialty Start Date End Date Kar Yadav MD [address] [place] [address] PCP - [facility] [employer] 06/01/23 Kar Yadav MD [address] [place] [address] PCP - General Family Medicine 08/07/23 Architecture Instructor Relationship Specialty Start Date End Date Kar Yadav MD [address] [place] [address] PCP - [facility] [employer] 06/01/23 Kar Yadav MD [address] [place] [address] PCP - General Family Medicine 08/07/23 Architecture Instructor Relationship Specialty Start Date End Date Kar Yadav MD [address] [place] [address] PCP - [facility] [employer] 06/01/23 Kar Yadav MD [address] [place] [address] PCP - General Family Medicine 08/07/23 Architecture Instructor Relationship Specialty Start Date End Date Kar Yadav MD [address] [place] [address] PCP - [facility] [employer] 06/01/23 Kar Yadav MD [address] [place] [address] PCP - General Family Medicine 08/07/23 Architecture Instructor Relationship Specialty Start Date End Date Kar Yadav MD [address] [place] [address] PCP - [facility] 06/01/23 Kar Yadav MD [address] [place] [address] [facility] 08/07/23 Architecture Instructor Relationship Specialty Start Date End Date Kar Yadav MD [address] [place] [address] PCP [facility] 06/01/23 Kar Yadav MD [address] [place] [address] [facility] 08/07/23 Architecture Instructor Relationship Specialty Start Date End Date Kar Yadav MD [address] [place] [address] PCP [facility] 06/01/23 Kar Yadav MD [address] [place] [address] [facility] 08/07/23 Reason for Visit (unrecogniz ed section and content) Reason Comments Cough Reason Comments Annual Exam wellness Reason Comments Gynecologic Exam LMP: 2020HRT: noneLa st pap 04-10-23 neg.Last mammogram 07-16-23 [facility] - PCP ordersDenies breast, urinary, or bowel concerns. Reason Comments Follow-up 6 M FOR RECORDS PERTAINING TO PATIENTS WHO ARE OR HAVE BEEN ENROLLED IN A CHEMICAL DEPENDENCY/SUBSTANCEABUSE PROGRAM, SOME INFORMATION MAY BE OMITTED. This clinical summary was aggregated from multiple sources. Caution should be exercised in using it in the provision of clinical care. This summary normalizes information from multiple sources, and as a consequence, information in this document may materially change the coding, format and clinical context of patient data. In addition, data may be omitted in some cases. CLINICAL DECISIONS SHOULD BE BASED ON THE PRIMARY CLINICAL RECORDS. [facility]. provides no warranty or guarantee of the accuracy or completeness of information in this document.
[2024-11-15 06:08] LABS: HBsAg Screen Negative (Negative); HCV Ab Non Reactive (Non Reactive); Hep A Ab, IgM Negative (Negative); Hep B Core Ab, IgM Negative (Negative)
== END 2024-11-14 08:36 | disposition home or self-care (01) ==
LOC: US 08:35
PROVIDERS: PCP Family Medicine; Visit Provider Family Medicine
DX: R79.89 Other specified abnormal findings of blood chemistry (principal)
CPT/HCPCS: 36415; 76705; 80074

== ENCOUNTER 2024-12-29 16:05 | Emergency (ER) | payer BC, SELFPAY ==
[2024-12-29 16:11] VITALS: BP 149/110; PULSE 93; TEMP 36.9; O2SAT 99; BMI 25.0
[2024-12-29 16:21] LABS: Glucometer 359 mg/dL (74-106)
--- OUTSIDE RECORDS SUMMARY | 2024-12-29 16:21 | XMS_ITS | Encounter Summary ---
Author Organization [facility] Address [address] [place] [address] Care Team Providers Care University Extension Specialist Name Role Phone Kar Myles MD Primary Care Provider [phone] Reason for Visit * Reason Comments Med Change Request Encounter Details Date Type Department Care Team ([facility] Contact Info) Description 12/21/2024 Refill [facility] [address] [place] [phone] Kar Myles MD [address] [place] [address] Benign essential hypertension Social History Tobacco Use Types Packs/Day Years Used Date Smoking Tobacco: Never Smokeless Tobacco: Never Alcohol Use Standard Drinks/Week Comments Not Currently 0 (1 standard drink = 0.6 oz pur e alcohol) B1300 Health Literacy Answer Date Recor ded How often do you need to hav e someone help you when you read instructions, pamphlets, or other written material from your doctor or pharmacy? Never 10/02/2024 Humiliation, Afraid, Rape, and Kick questionnair e Answer Date Recorded Within the last year, have y ou been afraid of your partner or ex-partner? No 08/07/2023 Within the last year, have y ou been humiliated or emotionally abused in other ways by your partner or ex-partner? No Within the last year, have y ou been kicked, hit, slapped, or otherwise physically hurt by your partner or ex-partner? No 08/07/2023 Within the last year, have y ou been raped or forced to have any kind of sexual activity by your partner or ex-partner? No 08/07/2023 Social Connection and Isolat ion Panel [NHANES] Answer Date Recorded In a typical week, how many times do you talk on the phone with family, friends, or neighbors? More than three times a week 10/02/2024 How often do you get togethe r with friends or relatives? Once a week 10/02/2024 How often do you attend chur or roman catholic services? Never 10/02/2024 Do you belong to any clubs o r organizations such as holiness groups, unions, fraternal or athletic groups, or school groups? No 10/02/2024 How often do you attend meet ings of the clubs or organizations you belong to? Patient declined 10/02/2024 Are you , , di vorced, , never , or living with a partner? 10/02/2024 AUDIT-C Answer Date Recorded Q1: How often do you have a drink containing alcohol? Never 10/02/2024 Q2: How many drinks containi ng alcohol do you have on a typical day when you are drinking? Patient does not drink Q3: How often do you have si x or more drinks on one occasion? Never 10/02/2024 Overall Financial Resource Strain (CARDIA) Answe r Date Recorded How hard is it for you to pa y for the very basics like food, housing, medical care, and heating? Not hard at all 10/02/2024 PHQ-2 Answer Date Recorded Patient Health Questionnaire-2 Score 0 04/15/2024 [facility] - Occupational Stress Questionnaire Answer Date Recorded Do you feel stress - tense, restless, nervous, or anxious, or unable to sleep at night because your mind is troubled all the time - these days? Only a little 10/02/2024 Exercise Vital Sign Answer Date Recorde d On average, how many days pe r week do you engage in moderate to strenuous exercise (like a brisk walk)? 3 days 10/02/2024 On average, how many minutes do you engage in exercise at this level? 60 min 10/02/2024 Hunger Vital Sign Answer Date Recorded Within the past 12 months, y ou worried that your food would run out before you got the money to buy more. Never true 10/03/19 25 Within the past 12 months, t he food you bought just didn't last and you didn't have money to get more. Never true 10/02/2024 PRAPARE - Transportation Answer Date Re corded In the past 12 months, has l ack of transportation kept you from medical appointments or from getting medications? No 08/2024 In the past 12 months, has l ack of transportation kept you from meetings, work, or from getting things needed for daily living? No 10/02/2024 Housing Stability Vital Sign Answer Evens e Recorded In the last 12 months, was t here a time when you were not able to pay the mortgage or rent on time? No 08/07/2023 In the last 12 months, how many places have you lived? 1 08/07/2023 In the last 12 months, was t here a time when you did not have a steady place to sleep or slept in a jail (including now)? No 08/07/2023 Housing Stability Vital Sign Answer Evens e Recorded In the last 12 months, was t here a time when you were not able to pay the mortgage or rent on time? No 10/02/2024 In the past 12 months, how m any times have you moved where you were living? 0 10/02/2024 At any time in the past 12 m [facility], were you homeless or living in a jail (including now)? No 10/02/2024 Comments No Sex and Gender Information Value Date Recorded Sex Assigned at Not on file Legal Sex Female 7:03 PM EDT Gender Identity Not on file Sexual Orientation Not on file documented as of this encounter Miscellaneous Notes * Telephone Encounter - JESSICA RICHMOND - 12/23/2024 8:48 AM EDT MEDICATION SENT TO [facility] documented in this encounter Plan of Treatment Upcoming Encounters Date Type Department Care Team (Late st Contact Info) Description 12/31/2024 11:15 AM EDT [facility] Visit [facility] [address] [place] [address] Kar Myles MD [address] [place] [address] 01/23/2025 9:00 AM EDT Office Visit [facility] [address] [place] [address] Kar Myles MD [address] [place] [address] 04/20/2025 11:15 AM EDT Office Visit [facility] [address] [place] [address] Srini Velazco, [address] [place] [address] documented as of this encounter Visit Diagnoses Diagnosis Benign essential hypertension Essential hypertension, benign documented in this encounter Care Teams University Extension Specialist Relationship Specialty Start Date End Date Kar Myles MD [address] [place] [address] PCP - General Family Medicine 08/07/23 documented as of this encounter
--- OUTSIDE RECORDS SUMMARY | 2024-12-29 16:21 | XMS_ITS | Encounter Summary ---
Author Organization [facility] Address [address] [place] [address] Care Team Providers Care Hospitalist Medical Director Name Role Phone Kar Myles MD Primary Care Provider [phone] Encounter Details Date Type Department Care Team (Late Contact Info) Description 11/14/2024 Results [facility] [address] [place] [address] Kar Myles MD [address] [place] [address] Social History Tobacco Use Types Packs/Day Years [...] 10/02/2024 How often do you attend chur ch or spiritism services? Never 10/02/2024 Do you belong to any clubs o r organizations such as judaism groups, unions, fraternal or athletic groups, or [...] Recorded Patient Health Questionnaire-2 Score 0 04/15/2024 [facility] - Occupational Stress Questionnaire Answer Date Recorded [...] place to sleep or slept in a penitentiary (including now)? No 08/07/2023 Housing Stability Vital Sign Answer Evens e Recorded In the last 12 months, was t here a time when you were not able to pay the mortgage or rent on time? No 10/02/2024 In the past 12 months, how m any times have you moved where you were living? 0 10/02/2024 At any time in the past 12 m [facility], were you homeless or living in a penitentiary (including now)? No 10/02/2024 Comments No Sex and Gender Information Value Date Recorded Sex Assigned at Not on file Legal Sex Female 7:03 PM EDT Gender Identity Not on file Sexual Orientation Not on file documented as of this encounter Plan of Treatment Upcoming Encounters Date Type Department Care Team (Late st Contact Info) Description 12/31/2024 11:15 AM EDT Office Visit [facility] [address] [place] [address] Kar Myles MD [address] [place] [address] 01/23/2025 9:00 AM EDT Office Visit [facility] [address] [place] [address] Kar Myles MD [address] [place] [address] 04/20/2025 11:15 AM EDT Office Visit [facility] [address] [place] [address] Srini Velazco, [address] [place] [address] documented as of this encounter Visit Diagnoses Not on filedocumented in this encounter Care Teams Hospitalist Medical Director Relationship Specialty Start Date End Date Kar Myles MD [address] [place] [address] PCP - General Family Medicine 08/07/23 documented as of this encounter
--- OUTSIDE RECORDS SUMMARY | 2024-12-29 16:21 | XMS_ITS | Encounter Summary ---
Author Organization [facility] Address [address] [place] [address] Care Team Providers Care Alignment Specialist Name Role Phone Kar Myles MD Primary Care Provider [phone] Kar Myles MD Unavailable Kar Myles MD Primary Care Provider [phone] Encounter Details Date Type Department Care Team (Late Contact Info) Description 04/09/2023 Abstract [facility] [address] [facility] [address] [place] [phone] Srini Velazco, DO [address] [facility] [address] [place] [address] Social History Tobacco Use Types Packs/Day Years Used Date Smoking Tobacco: Never Assessed AUDIT-C Answer Date Recorded Q1: How often do you have a drink containing alcohol? Never 04/10/2023 Q2: How many drinks containi ng alcohol do you have on a typical day when you are drinking? Patient does not drink Q3: How often do you have si x or more drinks on one occasion? Never 04/10/2023 PHQ-2 Answer Date Recorded Patient Health Questionnaire-2 Score 0 04/10/2023 Comments Unknown Sex and Gender Information Value Date Recorded Sex Assigned at Not on file Legal Sex Female 7:03 PM EDT Gender Identity Not on file Sexual Orientation Not on file COVID-19 Exposure Response Date Recorded In the last 10 days, have yo u been in contact with someone who was confirmed or suspected to have Coronavirus/COVID-19? No / Unsure 04/10/2023 9:21 AM EDT documented as of this encounter Functional Status * Audit-C Score Answer Date of Assessment Author 0 04/10/2023 1:02 PM EDT Ronal Mendiola MA * Question Answer Date of Assessment Author Q1: How often do you have a drink containing alcohol? Never 04/10/2023 1:02 PM EDT Theresa Mendiola MA Q2: How many drinks containing alcohol do you have on a typical day when you are drinking? Patient does not drink 04/10/2023 1:02 PM EDT Theresa Mendiola MA Q3: How often do you have six or more drinks on one occasion? Never 04/10/2023 1:02 PM EDT Theresa Mendiola MA * Over the past 2 weeks, how often have you been bothered by any of the following problems? Question Answer Date of Assessment Author Little interest or pleasure in doing things Not at all 04/10/2023 1:02 PM EDT Theresa Mendiola MA Feeling down, depressed, or hopeless Not at all 04/10/2023 1:02 PM EDT Theresa Mendiola MA Patient Health Questionnaire -2 Score 0 04/10/2023 1:02 PM EDT Theresa Mendiola MA documented as of this encounter Plan of Treatment Upcoming Encounters Date Type Department Care Team (Late st Contact Info) Description 12/31/2024 11:15 AM EDT Office Visit [facility] [address] [place] [address] Kar Myles MD [address] [place] [address] 01/23/2025 9:00 AM EDT Office Visit [facility] [address] [place] [address] Kar Myles MD [address] [place] [address] 04/20/2025 11:15 AM EDT Office Visit [facility] [address] [place] [address] Srini Velazco, DO [address] [place] [address] documented as of this encounter Visit Diagnoses Not on filedocumented in this encounter Care Teams Alignment Specialist Relationship Specialty Start Date End Date Kar Myles MD PCP - General 04/03/23 08/06/23 Kar Myles MD [address] [place] [address] PCP - [employer] 06/01/23 Kar Myles MD [address] [place] [address] PCP - General Family Medicine 08/07/23 documented as of this encounter
--- OUTSIDE RECORDS SUMMARY | 2024-12-29 16:21 | XMS_ITS | Encounter Summary ---
Author Organization [facility] Address [address] [place] [address] Care Team Providers Care Volunteer Recruitment Coordinator Name Role Phone Kar Myles MD Primary Care Provider [phone] Kar Myles MD Unavailable Kar Myles MD Primary Care Provider [phone] Encounter Details Date Type Department Care Team ([facility] Contact Info) Description 07/17/2023 Clinisync Result Encounter [facility] External Department Unsolicited Kar Myles MD [address] [place] [phone] Social History Tobacco Use Types Packs/Day Years Used Date Smoking Tobacco: Never Smokeless Tobacco: Never Alcohol Use Standard Drinks/Week Comments Not Currently 0 (1 standard drink = 0.6 oz pur e alcohol) AUDIT-C Answer Date Recorded Q1: How often [...] Patient Health Questionnaire-2 Score 0 04/10/2023 Comments No Sex and Gender Information Value Date Recorded Sex Assigned at Not on file Legal Sex Female 7:03 PM EDT Gender Identity Not on file Sexual Orientation Not on file documented as of this encounter Plan of Treatment Upcoming Encounters Date Type Department Care Team ([facility] Contact Info) Description 12/31/2024 11:15 AM EDT Office Visit [facility] [address] [place] [address] Kar Myles MD [address] [place] [phone] 01/23/2025 9:00 AM EDT Office Visit [facility] [address] [place] [phone] Kar Myles MD [address] [place] [phone] 04/20/2025 11:15 AM EDT Office Visit [facility] [address] [place] [phone] Srini Velazco, DO [address] [place] [address] documented as of this encounter Procedures Procedure Name Priority Date/Time Associated Diagnosis Comments MM TOMOSYNTHESIS SCREENING BI 07/17/2023 8:24 AM EST documented in this encounter Results * MM TOMOSYNTHESIS SCREENING BI (07/17/2023 8:24 AM EST) Anatomical Region Laterality Modality Other 07/17/2023 8:24 AM EST Narrative 07/17/2023 8:25 AM EST The [address] [address] Mammography Report Signed Patient: WENDIE HUBBARD MR#: [id number] : 1970 Acct:[id number] Age/Sex: 52 / F ADM Date: 07/16/23 Loc: MAMMO Attending Dr: Kar Myles M.D. Ordering Physician: Kar Myles M.D. Results: Date of Service: 07/16/23 Follow Up: Procedure(s): MM tomosynthesis screening BI Accession Number(s): [id number] cc: Kar Myles M.D. Patient Name: WENIDE HUBBARD MR#: [id number] : 1970 Exam Date: 07/16/2023 Ordering Doctor: DR Kar Myles . RADIOLOGY REPORT PROCEDURE: MM TOMOSYNTHESIS SCREENING BI COMPARISON: MG MAMM SCREEN URSULA W CAD, 08/29/2019. MG MAMM SCREEN 3D URSULA CAD, 05/16/2022. INDICATIONS: Screening Calculator Name NCI Breast Cancer Risk Assessment Tool 5 Year Breast Cancer Risk 0.60% Lifetime Breast Cancer Risk 5.20% Personal Breast Cancer No Personal Ovarian Cancer No Treatments None Family Cancers Grandmother-paternal with skin cancer at age 60. LOCATION: [facility] BREAST COMPOSITION: Heterogeneously dense,which may obscure small masses. FINDINGS: DIAGNOSTIC CATEGORY 2--BENIGN FINDING. NO CHANGE FROM COMPARISON. Scattered benign-appearing calcifications are present. Scattered benign-appearing lymph nodes are present. RIGHT BREAST: No significant suspicious finding. LEFT BREAST: No significant suspicious finding. RECOMMENDATIONS: ROUTINE MAMMOGRAM AND CLINICAL EVALUATION IN 12 MONTHS. PLEASE NOTE: A NORMAL MAMMOGRAM DOES NOT EXCLUDE THE POSSIBILITY OF BREAST CANCER. A CLINICALLY SUSPICIOUS PALPABLE LUMP SHOULD BE BIOPSIED. Dictated by: Woody Lomax MD on 07/17/2023 at 08:23 Approved by: Woody Lomax MD on 07/17/2023 at 08:24 Dictated By: Woody Lomax M.D. Signed By: 07/17/23824 DD/ 3 TD/TT: Aerial Applicator Pilot: Procedure Note Radiology, Radiologist, MD - 07/17/2023 [place] [address] Mammography Report Signed Patient: WENDIE HUBBARD JMR#: [id number] : 1970Acct:[id number] Age/Sex: 52 / FADM Date: 07/16/23 Loc: MAMMO Attending Dr: Kar Myles M.D. Ordering Physician: Kar Myles M.D.Results: Date of Service: 07/16/23Follow Up: Procedure(s): MM tomosynthesis screening BI Accession Number(s): [id number] cc: Kar Myles M.D. Patient Name: WENDIE HUBBARD MR#: [id number] : 1970 Exam Date: 07/16/2023 Ordering Doctor: DR Kar Myles . RADIOLOGY REPORT PROCEDURE: MM TOMOSYNTHESIS SCREENING BI COMPARISON: MG MAMM SCREEN URSULA W CAD, 08/29/2019. MG MAMM SCREEN 3DBIL CAD, 05/16/2022. INDICATIONS: Screening Calculator Name NCI Breast Cancer Risk Assessment Tool 5 Year Breast Cancer Risk 0.60% Lifetime Breast Cancer Risk 5.20% Personal Breast Cancer No Personal Ovarian Cancer No Treatments None Family Cancers Grandmother-paternal with skin cancer at age 60. LOCATION: [facility] BREAST COMPOSITION: Heterogeneously dense,which may obscure smallmasses. FINDINGS: DIAGNOSTIC CATEGORY 2--BENIGN FINDING. NO CHANGE FROM COMPARISON. Scattered benign-appearing calcifications are present. Scattered benign-appearing lymph nodes are present. RIGHT BREAST: No significant suspicious finding. LEFT BREAST: No significant suspicious finding. RECOMMENDATIONS: ROUTINE MAMMOGRAM AND CLINICAL EVALUATION IN 12 MONTHS. PLEASE NOTE: A NORMAL MAMMOGRAM DOES NOT EXCLUDE THE POSSIBILITY OFBREAST CANCER. A CLINICALLY SUSPICIOUS PALPABLE LUMP SHOULD BE BIOPSIED. Dictated by: Woody Lomax MD on 07/17/2023 at 08:23 Approved by: Woody Lomax MD on 07/17/2023 at 08:24 Dictated By: Woody Lomax M.D. Signed By:07/17/23824 DD/ 3 TD/TT: Aerial Applicator Pilot: Kar Myles MD [facility] Final Result documented in this encounter Visit Diagnoses Not on filedocumented in this encounter Care Teams Volunteer Recruitment Coordinator Relationship Specialty Start Date End Date Kar Myles MD PCP - General 04/03/23 08/06/23 Kar Myles MD [address] [place] [address] PCP - [place] [employer] 06/01/23 Kar Myles MD [address] [place] [address] PCP - General Family Medicine 08/07/23 documented as of this encounter
--- OUTSIDE RECORDS SUMMARY | 2024-12-29 16:21 | XMS_ITS | Encounter Summary ---
Author Organization [facility] Address [address] [place] [address] Care Team Providers Care Electrical Technician Instructor Name Role Phone Kar Myles MD Primary Care Provider [phone] Encounter Details Date Type Department Care Team (Late st Contact Info) Description 11/14/2024 [facility] [address] [place] [phone] Kar Myles MD [address] [place] [phone] Social History Tobacco Use Types Packs/Day Years [...] often do you attend chur ch or jehovah's witness services? Never 10/02/2024 Do you belong to any clubs o r organizations such as restorationism groups, unions, fraternal or athletic groups, or [...] Recorded Patient Health Questionnaire-2 Score 0 04/15/2024 [facility] - Occupational Stress Questionnaire Answer Date [...] place to sleep or slept in a retirement (including now)? No 08/07/2023 Housing Stability Vital Sign Answer Evens e Recorded In the last 12 months, was t here a time when you were not able to pay the mortgage or rent on time? No 10/02/2024 In the past 12 months, how m any times have you moved where you were living? 0 10/02/2024 At any time in the past 12 m [facility], were you homeless or living in a retirement (including now)? No 10/02/2024 Comments No Sex [...] Visit [facility] [address] [place] [address] Kar Myles MD [address] [place] [address] 01/23/2025 9:00 AM EDT Office Visit [facility] [address] [place] [address] Kar Myles MD [address] [place] [address] 04/20/2025 11:15 AM EDT Office Visit [facility] [address] [place] [phone] Srini Velazco, [address] [place] [address] documented as of this encounter Visit Diagnoses Not on filedocumented in this encounter Care Teams Electrical Technician Instructor Relationship Specialty Start Date End Date Kar Myles MD [address] [place] [phone] PCP - General Family Medicine 08/07/23 documented as of this encounter
--- NOTE | 2024-12-29 16:23 | ED.RECABL1 ---
HPI - Recheck/Abnormal Lab/Rx General Chief Complaint: Recheck/Abnormal Lab/Rx Stated Complaint: HIGH BLOOD SUGAR Time Seen by Provider: 12/29/24 16:07 Source: patient Mode of arrival: walk-in Limitations: no limitations History of Present Illness HPI narrative: Patient is a 54-year-old female who presents to the emergency department for abnormal blood sugars at home. Patient states that she was recently started on metformin, 1 month ago if she transition from prediabetes to type 2 diabetes. She has not had any adjustments of the metformin or any other diabetic medications. She states she has had polyuria and polydipsia with a 20 pound weight loss. She currently has no focal medical complaints. She states her friend encouraged her to come to the emergency department because her blood sugars have been running high with her glucometer reading high over the weekend. Current Accu-Chek at the bedside is 359. Related Data Home Medications ?Medication ?Instructions ?Recorded ?Confirmed atorvastatin 40 mg tablet 40 mg PO .QHS 12/29/24 12/29/24 hydrochlorothiazide 25 mg tablet 25 mg PO DAILY 12/29/24 12/29/24 levothyroxine 75 mcg tablet 75 mcg PO .ACB 12/29/24 12/29/24 metformin 500 mg tablet,extended 500 mg PO DAILY 12/29/24 12/29/24 release 24 hr Allergies Allergy/AdvReac Type Severity Reaction Status Date / Time No Known Drug Allergies Allergy Verified 12/29/24 16:17 Review of Systems ROS Constitutional Denies: fever or chills Cardiovascular Denies: chest pain Respiratory Denies: shortness of breath or cough Gastrointestinal Denies: nausea or vomiting Musculoskeletal Denies: back pain or neck pain Integumentary/Breast Denies: rash Neurological Denies: numbness in extremities or weakness in extremities Hematologic/Lymphatic Denies: easy bruising or easy bleeding PFSH PFSH Social History Little interest or pleasure in doing things: not at all Feeling down, depressed, or hopeless: not at all Exam Narrative Exam Narrative: Gen.: Awake, alert, in no distress Head: Normocephalic, atraumatic ENT: Moist mucous membranes Respiratory: No respiratory distress Gastrointestinal: Abdomen is soft, nondistended and nontender to palpation Extremities: Moves extremities equally Psych: Normal mood and affect Neuro: No focal neuro deficit Skin: Warm, dry, intact Constitutional Vital Signs, click to edit/add: Last Vital Signs Temp 98.4 F 12/29/24 16:11 Pulse 93 H 12/29/24 16:11 Resp 18 12/29/24 16:11 BP 149/110 H 12/29/24 16:11 Pulse Ox 99 12/29/24 16:11 Course Vital Signs Vital signs: Vital Signs Temperature 98.4 F 12/29/24 16:11 Pulse Rate 93 H 12/29/24 16:11 Respiratory Rate 18 12/29/24 16:11 Blood Pressure 149/110 H 12/29/24 16:11 Pulse Oximetry 99 12/29/24 16:11 Temperature 98.4 F 12/29/24 16:11 Pulse Rate 93 H 12/29/24 16:11 Respiratory Rate 18 12/29/24 16:11 Blood Pressure 149/110 H 12/29/24 16:11 Pulse Oximetry 99 12/29/24 16:11 MDM - Recheck/Abnormal Lab/Rx MDM Narrative Medical decision making narrative: Laboratory studies reviewed and noted showing the patient has no evidence of acidosis however there are ketones in her urine with small acetone. She was treated with IV fluids and IV insulin, 8 units. Blood sugar responded and recheck blood sugars 259. Potassium was noted to be critically low 2.7 and the patient was given oral potassium in the ER. She is encouraged to follow-up with PCP for reevaluation and return to the ER if symptoms change or worsen. SHARED APC VISIT, PHYSICIAN ATTESTATION: [id number] I performed a substantive part of the MDM during the patient?s E/M visit. I personally evaluated and examined the patient. I personally made or approved the documented management plan and acknowledge its risk of complications. Medical Records Attestation: I reviewed the patient's medical records. Lab Data Attestation: I reviewed the patient's lab results. Labs: Lab Results 12/29/24 12/29/24 12/29/24 Range/Units 16:19 16:30 17:28 WBC 11.2 H (4.0-11.0) 10^3/uL RBC 5.27 (4.20-5.40) 10^6/uL Hgb 15.6 (12.0-16.0) g/dL Hct 42.6 (36.0-48.0) % MCV 80.8 L (81.0-99.0) fL MCH 29.6 (26.7-34.0) pg MCHC 36.6 H (29.9-35.2) g/dL RDW 11.6 (11.0-15.0) % Plt Count 251 (150-450) 10^3/uL MPV 11.3 (9.5-13.5) fL Neut % (Auto) 56.5 (43.0-75.0) % Lymph % (Auto) 35.4 (20.5-60.0) % Jerome % (Auto) 5.9 (1.7-12.0) % Eos % (Auto) 1.6 (0.9-7.0) % Baso % (Auto) 0.3 (0.2-2.0) % Neut # (Auto) 6.3 (1.4-6.5) 10^3/uL Lymph # (Auto) 4.0 H (1.2-3.8) 10^3/uL Jerome # (Auto) 0.7 (0.3-0.8) 10^3/uL Eos # (Auto) 0.2 (0.0-0.7) 10^3/uL Baso # (Auto) 0.0 (0.0-0.1) 10^3/uL Abs Immat Gran (auto) 0.03 (0.00-0.03) 10^3/uL Imm/Tot Granulo (auto) 0.3 (0.0-0.5) % VBG pH 7.467 H (7.330-7.430) VBG pCO2 43.1 (40.0-52.0) mmHg Sodium 133 L (136-145) mmol/L Potassium 2.7 L* (3.5-5.1) mmol/L Chloride 91 L (98-107) mmol/L Carbon Dioxide 28.6 (21.0-32.0) mmol/L Anion Gap 16.1 BUN 16.0 (7.0-18.0) mg/dL Creatinine 0.97 (0.55-1.02) mg/dL Est GFR ( Amer) >60 (>=60 mL/min/1.73m^2) Est GFR (Non-Af Amer) >60 (>=60 mL/min/1.73m^2) BUN/Creatinine Ratio 16.5 Glucose 384 H (74-106) mg/dL Lactate 1.7 (0.4-2.0) mmol/L Calcium 9.7 (8.5-10.1) mg/dL Magnesium 1.7 L (1.8-2.4) mg/dL Total Bilirubin 0.7 (0.2-1.0) mg/dL AST 38 H (15-37) U/L ALT 60 H (14-59) U/L Alkaline Phosphatase 135 H (46-116) U/L Total Protein 7.7 (6.4-8.2) g/dL Albumin 3.6 (3.4-5.0) g/dL Globulin 4.1 g/dL Albumin/Globulin Ratio 0.9 Lipase 65.0 (16.0-77.0) U/L Urine Color Lt. yellow (YELLOW) Urine Clarity Clear (CLEAR) Urine pH 6.0 (5.0-9.0) Ur Specific Minetto 1.015 (1.005-1.025) Urine Protein Trace (NEG/TRACE) mg/dL Urine Glucose (UA) >=1000 A (NEGATIVE) mg/dL Urine Ketones 40 A (NEGATIVE) mg/dL Urine Occult Blood Moderate A (NEGATIVE) Urine Nitrite Negative (NEGATIVE) Urine Bilirubin Small A (NEGATIVE) Urine Urobilinogen 0.2 (0.2-1.0) EU/dL Ur Leukocyte Esterase Negative (NEGATIVE) Urine RBC 0-2 (0-2) #/HPF Urine WBC 0-2 A (NONE SEEN) #/HPF Ur Squamous Epith Cells Few A (NONE/RARE) #/LPF Urine Crystals None seen (None Seen) #/HPF Urine Bacteria Trace A (NONE SEEN) #/HPF Urine Casts None seen (NONE SEEN) #/LPF Urine Mucus None seen (NONE SEEN) Ur Culture Indicated? No Acetone, Qual Small A (NEGATIVE) POC Glucose 359 H 361 H (74-106) mg/dL 12/29/25 Range/Units 18:30 WBC (4.0-11.0) 10^3/uL RBC (4.20-5.40) 10^6/uL Hgb (12.0-16.0) g/dL Hct (36.0-48.0) % MCV (81.0-99.0) fL MCH (26.7-34.0) pg MCHC (29.9-35.2) g/dL RDW (11.0-15.0) % Plt Count (150-450) 10^3/uL MPV (9.5-13.5) fL Neut % (Auto) (43.0-75.0) % Lymph % (Auto) (20.5-60.0) % Jerome % (Auto) (1.7-12.0) % Eos % (Auto) (0.9-7.0) % Baso % (Auto) (0.2-2.0) % Neut # (Auto) (1.4-6.5) 10^3/uL Lymph # (Auto) (1.2-3.8) 10^3/uL Jerome # (Auto) (0.3-0.8) 10^3/uL Eos # (Auto) (0.0-0.7) 10^3/uL Baso # (Auto) (0.0-0.1) 10^3/uL Abs Immat Gran (auto) (0.00-0.03) 10^3/uL Imm/Tot Granulo (auto) (0.0-0.5) % VBG pH (7.330-7.430) VBG pCO2 (40.0-52.0) mmHg Sodium (136-145) mmol/L Potassium (3.5-5.1) mmol/L Chloride (98-107) mmol/L Carbon Dioxide (21.0-32.0) mmol/L Anion Gap BUN (7.0-18.0) mg/dL Creatinine (0.55-1.02) mg/dL Est GFR ( Amer) (>=60 mL/min/1.73m^2) Est GFR (Non-Af Amer) (>=60 mL/min/1.73m^2) BUN/Creatinine Ratio Glucose (74-106) mg/dL Lactate (0.4-2.0) mmol/L Calcium (8.5-10.1) mg/dL Magnesium (1.8-2.4) mg/dL Total Bilirubin (0.2-1.0) mg/dL AST (15-37) U/L ALT (14-59) U/L Alkaline Phosphatase (46-116) U/L Total Protein (6.4-8.2) g/dL Albumin (3.4-5.0) g/dL Globulin g/dL Albumin/Globulin Ratio Lipase (16.0-77.0) U/L Urine Color (YELLOW) Urine Clarity (CLEAR) Urine pH (5.0-9.0) Ur Specific Minetto (1.005-1.025) Urine Protein (NEG/TRACE) mg/dL Urine Glucose (UA) (NEGATIVE) mg/dL Urine Ketones (NEGATIVE) mg/dL Urine Occult Blood (NEGATIVE) Urine Nitrite (NEGATIVE) Urine Bilirubin (NEGATIVE) Urine Urobilinogen (0.2-1.0) EU/dL Ur Leukocyte Esterase (NEGATIVE) Urine RBC (0-2) #/HPF Urine WBC (NONE SEEN) #/HPF Ur Squamous Epith Cells (NONE/RARE) #/LPF Urine Crystals (None Seen) #/HPF Urine Bacteria (NONE SEEN) #/HPF Urine Casts (NONE SEEN) #/LPF Urine Mucus (NONE SEEN) Ur Culture Indicated? Acetone, Qual (NEGATIVE) POC Glucose 258 H (74-106) mg/dL Discharge Plan Discharge Chief Complaint: Recheck/Abnormal Lab/Rx Clinical Impression: Acute hyperglycemia Patient Disposition: Home, Self-Care Time of Disposition Decision: 18:46 Condition: Good Prescriptions / Home Meds: No Action atorvastatin 40 mg tablet 40 mg PO .QHS levothyroxine 75 mcg tablet 75 mcg PO .ACB hydrochlorothiazide 25 mg tablet 25 mg PO DAILY metformin 500 mg tablet extended release 24 hr 500 mg PO DAILY Print Language: Prydeinig Instructions: Diabetic Hyperglycemia (ED) Referrals: Kar Myles MD [Primary Care Provider, Family Practice] - 1 week
[2024-12-29] MEDS: 0.9 % SODIUM CHLORIDE 1,000 ML 1000 ML IV (16:33)
[2024-12-29 16:41] LABS: Basophils Percent Auto 0.3 % (0.2-2.0); Eosinophils Absolute Auto 0.2 10^3/uL (0.0-0.7); Eosinophils Percent Auto 1.6 % (0.9-7.0); Hematocrit 42.6 % (36.0-48.0); Hemoglobin 15.6 g/dL (12.0-16.0); Immature Granulocytes Abs Auto 0.03 10^3/uL (0.00-0.03); Immature Granulocytes Pct Auto 0.3 % (0.0-0.5); Lymphocytes Percent Auto 35.4 % (20.5-60.0); Mean Corpuscular HGB Conc 36.6 g/dL (29.9-35.2); Mean Corpuscular Hemoglobin 29.6 pg (26.7-34.0); Mean Corpuscular Volume 80.8 fL (81.0-99.0); Mean Platelet Volume 11.3 fL (9.5-13.5); Monocytes Absolute Auto 0.7 10^3/uL (0.3-0.8); Monocytes Percent Auto 5.9 % (1.7-12.0); Neutrophils Absolute Auto 6.3 10^3/uL (1.4-6.5); Neutrophils Percent Auto 56.5 % (43.0-75.0); Platelet Count 251 10^3/uL (150-450); Red Blood Count 5.27 10^6/uL (4.20-5.40); Red Cell Distribution Width 11.6 % (11.0-15.0); White Blood Count 11.2 10^3/uL (4.0-11.0)
[2024-12-29 16:45] LABS: PCO2 VBG 43.1 mmHg (40.0-52.0); pH VBG 7.467 (7.330-7.430)
[2024-12-29 16:57] LABS: Bilirubin Urine SMALL (NEGATIVE); Blood Urine MODERATE (NEGATIVE); Clarity Urine CLEAR (CLEAR); Color Urine LT. YELLOW (YELLOW); Glucose Urine UA >=1000 mg/dL (NEGATIVE); Ketones Urine 40 mg/dL (NEGATIVE); Leukocyte Esterase Urine NEGATIVE (NEGATIVE); Nitrite Urine NEGATIVE (NEGATIVE); Protein Urine TRACE mg/dL (NEG/TRACE); Specific Gravity Urine 1.015 (1.005-1.025); Urobilinogen Urine 0.2 EU/dL (0.2-1.0)
[2024-12-29 17:00] LABS: Acetone SMALL (NEGATIVE)
[2024-12-29 17:06] LABS: Alanine Aminotransferase 60 U/L (14-59); Albumin Globulin Ratio 0.9; Albumin Level 3.6 g/dL (3.4-5.0); Alkaline Phosphatase 135 U/L (46-116); Anion Gap 16.1; Aspartate Amino Transferase 38 U/L (15-37); BUN Creatinine Ratio 16.5; Bilirubin Total 0.7 mg/dL (0.2-1.0); Calcium 9.7 mg/dL (8.5-10.1); Carbon Dioxide 28.6 mmol/L (21.0-32.0); Chloride 91 mmol/L (98-107); Estimated GFR (African America >60 (>=60 mL/min/1.73m^2); Estimated GFR (Non-African Ame >60 (>=60 mL/min/1.73m^2); Globulin 4.1 g/dL; Glucose 384 mg/dL (74-106); Lactate/Lactic Acid 1.7 mmol/L (0.4-2.0); Magnesium 1.7 mg/dL (1.8-2.4); Sodium 133 mmol/L (136-145); Total Protein 7.7 g/dL (6.4-8.2)
[2024-12-29 17:11] LABS: Potassium 2.7 mmol/L (3.5-5.1)
[2024-12-29 17:15] LABS: WBC Urine 0-2 #/HPF (NONE SEEN)
[2024-12-29 17:16] LABS: Bacteria Urine TRACE #/HPF (NONE SEEN); Cast Seen? NONE SEEN #/LPF (NONE SEEN); Crystals Seen? None Seen #/HPF (None Seen); Mucus Urine NONE SEEN (NONE SEEN); RBC Urine 0-2 #/HPF (0-2); Squamous Epithelial Cell Urine FEW #/LPF (NONE/RARE); Urine Culture Indicated NO
[2024-12-29] MEDS: POTASSIUM BICARBONATE/CIT 25 MEQ TABLET EFF 50 MEQ PO (17:25)
[2024-12-29 17:29] LABS: Glucometer 361 mg/dL (74-106)
[2024-12-29] MEDS: INSULIN REGULAR, HUMAN (100 UNIT/ML) 10 ML MDV 8 UNIT IV (17:30)
[2024-12-29 18:31] LABS: Glucometer 258 mg/dL (74-106)
== END 2024-12-29 19:05 | disposition home or self-care (01) ==
PROVIDERS: Physician Assistant; Emergency Provider Emergency Medicine; PCP Family Medicine
DX: E11.65 Type 2 diabetes mellitus with hyperglycemia (principal); Z79.84 Long term (current) use of oral hypoglycemic drugs
CPT/HCPCS: 36415; 80053; 81001; 82009; 82800; 83605; 83690; 83735; 85025; 99285; J1817

== ENCOUNTER 2025-05-05 08:43 | Outpatient (OUT) | payer BC, SELFPAY ==
--- OUTSIDE RECORDS SUMMARY | 2025-04-28 05:55 | XMS_ITS | Continuity of Care Document ---
Author Organization [facility] Address [address] [place] [address] Phone Care Team Providers Care Logistics Loss Prevention Manager Name Role Phone Sabrina Brodie De La Rosa DO Primary Care Provider Kar Myles MD Attending Provider Care Teams Patient Care Team Team Status: Active Member Role/Relationship Status Dates Brodie Bennett DO Primary Care Provider Active Patient Care Team Team Status: Inactive Member Role/Relationship Status Dates Brodie Bennett DO Primary Care Provider Active Start: April 28, 2025 End: April 28, 2025[facility] Monserrat Mylesending ProviderActiveStart: April 28, 2025 End: April 28, 2025 Chief Complaint and Reason for Visit Chief Complaint Admit Date Established Patient April 28, 2025 1 0:06am Reason for Visit Admit Date Annual physical exam April 28, 2025 10:06am Benign essential hypertension April 282024 10:06am Type 2 diabetes mellitus wit h hyperglycemia, without long-term current use April 28, 2025 10:06am Allergies, Adverse Reactions, Alerts Allergen Type Severity Reaction Last Updated Verified Status No Known Allergies Allergy Unknown April 28, 2025 10:12amYesActive Social History Smoking Status Status Start Date End Date Date of Observa tion Never smoked tobacco (finding) April 28, 2025 10:13am Observation Status Observation Response Date of Response Legal Sex Female (finding) Sex Assigned At BirthFemaleApril 1970 Problems Active Problems Problem Diagnosis/Recorded Date Onset Date Stat us Nonalcoholic fatty liver disease April 22, 2025 10 :14am Unknown Active Benign essential hypertension April 22, 2025 10:14 am Unknown Active Dyslipidemia April 22, 2025 10:14am Unknown A ctive Annual physical exam April 28, 2025 10:17am Unknow n Active Adult hypothyroidism April 22, 2025 10:14am Unknow n Active Type 2 diabetes mellitus wit h hyperglycemia, without long-term current use of insulin April 22, 2025 10:15am Unknown Active Hypokalemia April 22, 2025 10:14am Unknown A ctive Medications Medication Status Dose Units Route Directions Qty Days Refills S tart Date Stop Date End Date Reason(s) Instructions Adherence Atorvastatin 40 mg tablet Active 40 MG PO Daily at bedtime April 22, 2025 12:00amComplies with drug therapyLevothyroxine 75 mcg tablet Bftcaj37ORRPPRbbrgZeiqizt 2024 12:00amComplies with drug therapy Hydrochlorothiazide 25 mg jtjpbrFjkliw14FPXDEjnxwKdatubm 2024 12:00am Complies with drug therapyMetformin 500 mg tablet extended release 24 hrActive 500MGPOTwice dailyHelen [facility] 2024 12:00amComplies with drug therapyPotassium Chloride 20 mEq tablet extended ofkgqjdIwmvvn72MVBLAEcecrEgjehvb 2024 12:00amComplies with drug therapyTirzepatide 5 mg/0.5 mL pen injector Zvdvoiuuivyi0GAFUBOWHixfjp [facility] 2024 12:00amOctm[facility] 2024 10:30amTirzepatide 5 mg/0.5 mL pen tvwtluugJcbeiq6XMHIGHYTqcndg kgfi63Xmnnzbm 2024 10:29amComplies with drug therapy Vital Signs Vital Reading Result Reference Range Collection Date/Time Height 66 [in_i] April 28, 2025 10:85obGzgvqz98.60 kgHelen [facility] 2024 10:12amBody Zdtwxavbtlg00.1 [degF]97.6-99.0[facility] 2024 10:12amHeart Vons888 /min 60-100[facility] 2024 10:12amRespiratory rate20 /uov45-76Wqtlqws 2024 10:12amOxygen saturation by Pulse cywpfebk43 %95-100April 28, 2025 10:12amBP Nysotabk373 mm[Hg]100-140April 28, 2025 10:12amBP Cgisltgua85 mm[Hg]60-100 April 28, 2025 10:12amBMI (Body Mass Index)20.5 kg/q7Wxhqnrh2024 10:12am Advance Directives Advance Directive Response Recorded Date/ Time Advance Directives No April 28, 2025 10:06am Insurance Providers Guarantor Wendie Hubbard Address [address] [place] [address]Fhnbjsq Info.Home Phone: Coverage Status Update:2025 Payer Group Member ID Coverage Type Subscriber Relationship to Subscriber Effective Date Expiration Date MMO Id: [id number] J Allen Id: [id number] [address] [place] Home Phone: Self Encounters Encounter Location(s) Arrival/Admit Date Discharge/Departure Date Discharge/Departure Disposition Provider(s) Departed Physician/ Provider Office Visit -[facility] Family Medicine [place] April 28, 2025 10:06am April 28, 2025 10:48am Discharged to home care or self care (routine discharge) Kar Myles MD Recent Diagnosis Onset Date Admit Date Annual physical exam Unknown April 10:06am Benign essential hypertension Unknown Oc tober 2024 10:06am Type 2 diabetes mellitus wit h hyperglycemia, without long-term current use Unknown April 28, 2025 10:06 am Assessments Diagnosis Onset Date Resolution Status Admit Date Annual physical exam acuteOct2024 10:06amBenign essential hypertensionacuteOct2024 10:06amType 2 diabetes mellitus with hyperglycemia, without long-term current useacuteOct2024 10:06am Plan of Treatment Author [facility]les [facility] 10:35amDue for labs and mammogram. Discussed proper diet and regular aerobic exercise.?? Need aerobic exercise 5-6 days a week for 30 minutes at a time.?? Smaller portions and limit total calories.?? Cologuard normal in 2022. Tetanus every 10 years.?? Advised not to smoke.?? BS controlled and due for A1C. Stick to ADA diet and limit carbs. BP controlled and monitor PRN. Future Tests Future scheduled test information is unavailable Pending Tests Test Name Ordered Date Scheduled Date Comprehensive Metabolic Panel April 28, 2025 10:25am MM screening mammo BI w/CADOctober 2024 10:21am Future Visits Future appointment information is unavailable Future Procedures Procedure Name Ordered Date Scheduled Date A1C with Estimated Average Glu April 28 10:20am Lipid PanelOctober 2024 10:25amMicroAlb Creat Ratio,UOctober 2024 10:20amFree T4 (Free Thyroxine)April 28, 2025 10:20amThyroid Stimulating HormoneOctober 2024 10:20am Future Medications Future medication information is unavailable Patient Instructions Patient instructions are unavailable
--- OUTSIDE RECORDS SUMMARY | 2025-05-05 08:50 | XMS_ITS | Encounter Summary ---
Author Organization [facility] Address [address] [place] [address] Care Team Providers Care [employer]orer Name Role Phone Kar Myles MD Primary Care Provider [phone] Kar Myles MD Unavailable Kar Myles MD Primary Care Provider [phone] Encounter Details DateTypeDepartmentCare Team (Latest Contact Info)Tcxlufcwwap51/16/2024Clinisync Result Encounter [facility] Unsolicited Kar Myles MD [address] [place] [id number] Social History Tobacco UseTypesPacks/DayYears UsedDateSmoking Tobacco: NeverSmokeless Tobacco: NeverAlcohol UseStandard Drinks/WeekCommentsNot Currently0 (1 standard drink = 0.6 oz pure alcohol)B1300 Health LiteracyAnswerDate RecordedHow often do you need to have someone help you when you read instructions, pamphlets, or other written material from your doctor or pharmacy?Never10/02/2024Humiliation, Afraid, Rape, and Kick questionnaireAnswerDate RecordedWithin the last year, have you been afraid of your partner or ex-partner?No08/07/2023Within the last year, have you been humiliated or emotionally abused in other ways by your partner or ex-partner?No08/07/2023Within the last year, have you been kicked, hit, slapped, or otherwise physically hurt by your partner or ex-partner?No 08/07/2023Within the last year, have you been raped or forced to have any kind of sexual activity by your partner or ex-partner?No08/07/2023Social Connection and Isolation PanelAnswerDate RecordedIn a typical week, how many times do you talk on the phone with family, friends, or neighbors?More than three times a week10/02/2024How often do you get together with friends or relatives?Once a week10/02/2024How often do you attend denominational or yazidi services?Never 10/02/2024Do you belong to any clubs or organizations such as denominational groups, unions, fraBandwdth Publishing or athletic groups, or school groups?No10/02/2024How often do you attend meetings of the clubs or organizations you belong to?Patient declined 10/02/2024re you , , , , never , or living with a partner?Naaonktl37/03/2025Overall Financial Resource Strain (CARDIA)AnswerDate RecordedHow hard is it for you to pay for the very basics like food, housing, medical care, and heating?Not hard at all10/02/2024PHQ-2 AnswerDate RecordedPatient Health Questionnaire-2 Nahja925[facility] [place] of Occupational Health - Occupational Stress QuestionnaireAnswerDate RecordedDo you feel stress - tense, restless, nervous, or anxious, or unable to sleep at night because yourmind is troubled all the time - these days?Only a joyame5910/02/2024Exercise Vital SignAnswerDate RecordedOn average, how many days per week do you engage in moderate to strenuous exercise (like a brisk walk)?3 days10/02/2024On average, how many minutes do you engage in exercise at this level?60 min10/02/2024Hunger Vital SignAnswerDate RecordedWithin the past 12 months, you worried that your food would run out before you got the money to buy more.Never true10/02/2024Within the past 12 months, the food you bought just didn't last and you didn't have money to get more.Never true10/02/2024PRAPARE - TransportationAnswerDate RecordedIn the past 12 months, has lack of transportation kept you from medical appointments or from getting medications?No 10/02/2024In the past 12 months, has lack of transportation kept you from meetings, work, or from getting things needed for daily living?No10/02/2024 Housing Stability Vital SignAnswerDate RecordedIn the last 12 months, was there a time when you were not able to pay the mortgage or rent on time?No08/07/2023In the last 12 months, how many places have you lived?In the last 12 months, was there a time when you did not have a steady place to sleep or slept in ashelter (including now)?No08/07/2023Housing Stability Vital SignAnswerDate RecordedIn the last 12 months, was there a time when you were not able to pay the mortgage or rent on time?No10/02/2024In the past 12 months, how many times have you moved where you were living?t any time in the past 12 months, were you homeless or living in a mcc (including now)?No10/02/2024 AUDIT-CAnswerDate RecordedQ1: How often do you have a drink containing alcohol? Never04/20/2025Q2: How many drinks containing alcohol do you have on a typical day when you are drinking?Patient does not drink04/20/2025Q3: How often do you have six or more drinks on one occasion?Never04/20/2025CommentsNoSex and Gender InformationValueDate RecordedSex Assigned at BirthNot on fileLegal Sex Qzchsm3509/13/2022 7:03 PM EDTGender IdentityNot on fileSexual OrientationNot on filedocumented as of this encounter Functional Status * AUDIT-C ScoreAnswerDate of RkodiulhkzMywmvj735/20/2025 11:20 AM Theresa Headley MA * QuestionAnswerDate of AssessmentAuthorQ1: How often do you have a drink containing alcohol?Never04/20/2025 11:20 AM Theresa Headley MAQ2: How many drinks containing alcohol do you have on a typical day when you are drinking? Patient does not drink04/20/2025 11:20 AM Theresa Headley MAQ3: How often do you have six or more drinks on one occasion?Never04/20/2025 11:20 AM Theresa Headley MA * Over the past 2 weeks, how often have you been bothered by any of the following problems?QuestionAnswerDate of AssessmentAuthorLittle interest or pleasure in doing thingsNot at all04/20/2025 11:20 AM Theresa Headley MA Feeling down, depressed, or hopelessNot at all04/20/2025 11:20 AM Theresa Headley MAPatient Health Questionnaire-2 Owwjs843 11:20 AM Theresa Headley MA documented as of this encounter Plan of Treatment DateTypeDepartmentCare Team (Latest Contact Info)Ymfkxiqmofy67/26/2026 11:00 AM EDTOffice Visit [facility] [address] [place] [phone] Srini Velazco, [address] [place] [address] documented as of this encounter Procedures Procedure NamePriorityDate/TimeAssociated DiagnosisCommentsMM TOMOSYNTHESIS SCREENING BI07/17/2023 8:24 AM EST documented in this encounter Results * MM TOMOSYNTHESIS SCREENING BI (07/17/2023 8:24 AM EST)Anatomical Region LateralityModalityOtherSpecimen (Source)Anatomical Location / Laterality Collection Method / VolumeCollection TimeReceived Time07/17/2023 8:24 AM EST Narrative 07/17/2023 8:25 AM EST [facility] ?[address] ? [place] [address] ? Mammography Report ? Signed ? Patient: WENDIE HUBBARD ?MR#: [id number] ?? : 1970 ?Acct:[id number] ?? Age/Sex: 52 / F ?ADM Date: 01/15/24 ?? Loc: MAMMO ? Attending Dr: Kar Myles M.D. ? Ordering Physician: Kar Myles M.D. ?Results: ? Date of Service: 07/16/23 ?Follow Up: ? Procedure(s): MM tomosynthesis screening BI ?? Accession Number(s): [id number] ? cc: Kar Myles M.D. ? Patient Name: ? WENDIE HUBBARD ? MR#: [id number] ? : 1970 ? Exam Date: 07/16/2023 ?? Ordering Doctor: DR Kar Myles . ? RADIOLOGY REPORT ? PROCEDURE: ? MM TOMOSYNTHESIS SCREENING BI ? COMPARISON: ? MG MAMM SCREEN URSULA W CAD, 08/29/2019. ??MG MAMM SCREEN 3D URSULA ?? CAD, 05/16/2022. ? INDICATIONS: ? Screening ? Calculator Name ? NCI Breast Cancer Risk Assessment Tool ?? 5 Year Breast Cancer Risk ? 0.60% ?? Lifetime Breast Cancer Risk ? 5.20% ?? Personal Breast Cancer ?No ?? Personal Ovarian Cancer ? No ?? Treatments ? None ?? Family Cancers ? Grandmother-paternal with skin cancer at age ??60. ? LOCATION: ? [facility] ? BREAST COMPOSITION: ? Heterogeneously dense,which may obscure small masses. ? FINDINGS: ? DIAGNOSTIC CATEGORY 2--BENIGN FINDING. NO CHANGE FROM COMPARISON. ? Scattered benign-appearing calcifications are present. ??Scattered ?? benign-appearing lymph nodes are present. ? RIGHT BREAST: ??No significant suspicious finding. ? LEFT BREAST: ??No significant suspicious finding. ? RECOMMENDATIONS: ? ROUTINE MAMMOGRAM AND CLINICAL EVALUATION IN 12 MONTHS. ? PLEASE NOTE: ??A NORMAL MAMMOGRAM DOES NOT EXCLUDE THE POSSIBILITY OF BREAST ?? CANCER. ??A CLINICALLY SUSPICIOUS PALPABLE LUMP SHOULD BE BIOPSIED. ? Dictated by: Woody Lomax MD on 07/17/2023 at 08:23 ? Approved by: Woody Lomax MD on 07/17/2023 at 08:24 ? Dictated By: ?Woody Lomax M.D. ? Signed By: ?07/17/23 0825 ? DD/ 0824 ? TD/TT: ? Hog Scalder: Procedure Note Radiology, Radiologist, - 07/17/2023 [place] [address] Mammography Report Signed Patient: WENDIE HUBBARD JMR#: [id number] : 1970Acct:[id number] Age/Sex: 52 / FADM Date: 07/16/23 Loc: MAMMO Attending Dr: Kar Myles M.D. Ordering Physician: Kar Myles M.D.Results: Date of Service: 07/16/23Follow Up: Procedure(s): MM tomosynthesis screening BI Accession Number(s): [id number] cc: Kar Myles M.D. Patient Name: WENDIE HUBBARD MR#: [id number] : 1970 Exam Date: 07/16/2023 Ordering Doctor: [...] skin cancer at age 62. LOCATION: [facility] BREAST COMPOSITION: Heterogeneously dense,which may obscure smallmasses. [...] Lomax M.D. Signed By:07/17/23824 DD/ 3 TD/TT: Hog Scalder: Authorizing ProviderResult TypeResult StatusMarc Naderer MDCLINISYNC IMAGING Final Result documented in this encounter Visit Diagnoses Not on filedocumented in this encounter Care Teams Team MemberRelationshipSpecialtyStart DateEnd Date Kar Myles MD PCP - Dkxoplq88/3/232 Kar Myles MD [address] [place] [phone] PCP - [place] Dwltgtnnbv18/1/234 Kar Myles MD [address] [place] [address] [facility] - [facility] Medicine08/07/23documented as of this encounter
--- OUTSIDE RECORDS SUMMARY | 2025-05-05 08:50 | XMS_ITS | Clinical Summary ---
Author Organization [facility] Healthcare Address [address] [place] [address] Care Team Providers Care Marketing Assistant Retail Division Name Role Phone Kar Myles MD Primary Care Provider [phone] Allergies No known active allergies Medications MedicationSigDispense QuantityRefillsLast FilledStart DateEnd DateStatus levothyroxine (Synthroid, Levoxyl) 75 MCG tablet Indications:Adult hypothyroidismTake 1 tablet (75 mcg) by mouth Daily 90 tablet 3045Active atorvastatin (Lipitor) 40 MG tablet Indications:DyslipidemiaTake 1 tablet (40 mg) by mouth at bedtime 30 tablet 5045Active hydroCHLOROthiazide (HYDRODiuril) 25 MG tablet Indications:Benign essential hypertensionTAKE 1 TABLET BY MOUTH EVERY DAY 90 tablet 5Active Glucose Blood (Blood Glucose Test Strips 333) strip Indications:Type 2 diabetes mellitus with hyperglycemia, without long-term current use of insulin ([facility])1 each by In Vitro route in the morning and 1 each in the evening and 1 each before bedtime. 100 strip 1105Active potassium chloride CR (K-Tab) 20 MEQ ER tablet Indications:HypokalemiaTAKE 1 TABLET (20 MEQ) BY MOUTH DAILY DO NOT CRUSH, CHEW, OR SPLIT. 90 tablet 5Active Tirzepatide (Mounjaro) 5 MG/0.5ML solution auto-injector Indications:Type 2 diabetes mellitus with hyperglycemia, without long-term current use of insulin ([facility])INJECT 5 MG UNDER THE SKIN ONE TIME PER WEEK 0.5 mL 5Active metFORMIN XR (Glucophage-XR) 500 MG 24 hr tablet Indications:Type 2 diabetes mellitus with hyperglycemia, without long-term current use of insulin ([facility])Take 1 tablet (500 mg) by mouth in the morning and 1 tablet (500 mg) before bedtime. Do not crush, chew, or split. 60 tablet 505Active Active Problems ProblemNoted DateDiagnosed MgcfZuueyxjtgvp58/02/2025Nonalcoholic fatty liver idiodwu9310/09/2024 Assessment & Plan (11/20/2024 11:38 AM EDT): Repeat labs. Would benefit from GLP-1. Benign essential wkawjrtbkrsg55/06/2024 Assessment & Plan (01/23/2025 9:24 AM EDT): BP controlled and monitor PRN. Assessment & Plan (11/20/2024 11:38 AM EDT): BP controlled and monitor PRN. Assessment & Plan (10/07/2024 3:12 PM EDT): BP again elevated and start treatment for HTN with hydrochlorothiazide. Discussed DASH diet. Yxetghwayfkc19/06/2024 Assessment & Plan (11/20/2024 11:38 AM EDT): Continue lipitor and repeat labs. Adult njetuwzzngkjui13/06/2024 Assessment & Plan (11/20/2024 11:37 AM EDT): Repeat labs. Assessment & Plan (10/07/2024 3:12 PM EDT): No signs of low thyroid and check labs. Type 2 diabetes mellitus with hyperglycemia, without long-term current use of zbkdkpl5708/07/2023 Assessment & Plan (01/23/2025 9:24 AM EDT): BS starting to drop and stop glipizide. Eat regularly and increase mounjaro. Assessment & Plan (12/31/2024 12:19 PM EDT): BS very elevated and A1C run in office 14.6. Continue metformin BID and add glipizide and mounjaro.Check BS TID due to elevated BS. Stick to ADA diet and limit carbs. Will order labs next visit and check C-peptide to assess if patient making insulin. Assessment & Plan (11/20/2024 11:38 AM EDT): Start metformin and continue diet changes. Assessment & Plan (10/07/2024 3:12 PM EDT): Check labs. Start ozempic. Resolved Problems ProblemNoted DateDiagnosed DateResolved DateAnnual physical exam04/04/2024 04/16/2025 Assessment & Plan (04/04/2024 11:42 AM EDT): Due for labs. Cologuard normal May 2023. Discussed proper diet and regular aerobic exercise. Need aerobic exercise 5-6 days a week for 30 minutes at a time. Smaller portions and limit total calories. Tetanus every 10 years. Advised not to smoke. Acute bronchitis due to other specified hcysjmesp62 Assessment & Plan (08/07/2023 3:59 PM EST): Take antibiotics for 7 days. Use prednisone for inflammation. Use sudafed or other decongestants asneeded. Use Robitussin or Robitussin-DM for cough. Can use afrin for congestion but no longer than 3 days. Can use Mucinex to bring up phlegm. Use Motrin or Tylenol as needed for fever, aches, or pains. Increase fluid intake and rest. Should improve over next 5-7 days and if no better or worse callfor re-evaluation. Encounters DateTypeDepartmentCare TypoZgkwujjqofh04/20/2025 11:15 AM EDTOffice Visit [facility] [address] [place] [address] Srini Velazco, DO Encounter for gynecological examination without abnormal finding; Screening for malignant neoplasm of cervix; Breast cancer screening by ptttqoklc61/20/6932Vegqhq04/29/2025Refill [facility]ADE [facility] [address] [facility] [place] [address] Kar Myles MD Type 2 diabetes mellitus with hyperglycemia, without long-term current use of insulin (HCC)02/17/2025Refill [facility]Y ANDRDAE [facility] [address] [place] [phone] Kar Myles MD Type 2 diabetes mellitus with hyperglycemia, without long-term current use of insulin (HCC)from Last 3 Months Family History Medical HistoryRelationNameCommentsCoronary artery diseaseFatherParentDiabetes FatherParentcerebrovascular accidentFatherParentDiabetesSister 1Sibling HypertensionSister 1Siblingvaricose veinsSister 1SiblingDiabetesSister 2Siblings MelanomaNeg HxRelationNameStatusCommentsFatherParentDeceasedMotherAliveSister 1 SiblingSister 2Siblings Social History Tobacco UseTypesPacks/DayYears UsedDateSmoking Tobacco: NeverSmokeless Tobacco: Never Tobacco Cessation:Counseling Given: Not Answered Alcohol UseStandard Drinks/WeekCommentsNot Currently0 (1 standard drink = [...] otherwise physically hurt by your partner or ex-partner?No08/07/2023Within the last year, have you been raped or forced to have any kind of sexual activity by your partner or ex-partner?No08/07/2023Social Connection and Isolation Panel AnswerDate RecordedIn a typical week, how many times do you talk on the phone with family, friends, or neighbors?More than three times a week10/02/2024How often do you get together with friends or relatives?Once a week10/02/2024How often do you attend jewish or hindu services?Never10/02/2024Do you belong to any clubs or organizations such as jewish groups, unions, fraternal or athletic groups, or school groups?No10/02/2024How often do you attend meetings of the clubs or organizations you belong to?Patient msqzibfz51/03/2025re you , , , , never , or living with a partner? 10/02/2024Overall Financial Resource Strain (CARDIA)AnswerDate RecordedHow hard is it for you to pay for the very basics like food, housing, medical care, and heating?Not hard at all10/02/2024PHQ-2AnswerDate RecordedPatient Health Questionnaire-2 Twnql935Finj[facility] [place] [facility] Occupational [employer] - Occupational Stress QuestionnaireAnswerDate RecordedDo you feel stress - tense, restless, nervous, or anxious, or unable to sleep at night because yourmind is troubled all the time - these days?Only a zubywu5510/02/2024Exercise Vital Sign AnswerDate RecordedOn average, how many days per week do you engage in moderate to strenuous exercise (like a brisk walk)?3 days10/02/2024On average, how many minutes do you engage in exercise at this level?60 min10/02/2024Hunger Vital SignAnswerDate RecordedWithin the past 12 months, you worried that your food would run out before you got the money to buymore.Never true10/02/2024Within the past 12 months, the food you bought just didn't last and you didn't have money to get more.Never true10/02/2024PRAPARE - TransportationAnswerDate RecordedIn the past 12 months, has lack of transportation kept you from medical appointments or from getting medications?No10/02/2024In the past 12 months, has lack of transportation kept you from meetings, work, or from getting things needed for daily living?No10/02/2024Housing Stability Vital SignAnswerDate RecordedIn the last 12 months, was there a time when you were not able to pay the mortgage or rent on time?No08/07/2023In the last 12 months, how many places have you lived?In the last 12 months, was there a time when you did not have a steady place to sleep or slept in ashelter (including now)?No 08/07/2023Housing Stability Vital SignAnswerDate RecordedIn the last 12 months, was there a time when you were not able to pay the mortgage or rent on time?No 10/02/2024In the past 12 months, how many times have you moved where you were living?t any time in the past 12 months, were you homeless or living in a longterm (including now)?No10/02/2024UDIT-CAnswerDate RecordedQ1: How often do you have a drink containing alcohol?Never04/20/2025Q2: How many drinks containing alcohol do you have on a typical day when you are drinking?Patient does not drink04/20/2025Q3: How often do you have six or more drinks on one occasion?Never04/20/2025CommentsNoSex and Gender InformationValueDate RecordedSex Assigned at BirthNot on fileLegal HhrBoncez44/15/2023 7:03 PM EDT Gender IdentityNot on fileSexual OrientationNot on file Last Filed Vital Signs Vital SignReadingTime TakenCommentsBlood Fzffpinp031/7804/20/2025 11:17 AM EDT Qwddl3055 9:06 AM IMOGxcsqjxbfns06.2 ??C (97.1 ??F)01/23/2025 9:06 AM EDTRespiratory Iqrd683601/23/2025 9:06 AM EDTOxygen Istienmono13%01/23/2025 9:06 AM EDTInhaled Oxygen Concentration--Xfapwq48.2 kg (126 lb)04/20/2025 11:17 AM YHTUxzvwp968.6 cm (5' 6 )04/20/2025 11:17 AM EDTBody Mass Index20.341 11:17 AM EDT Plan of Treatment DateTypeDepartmentCare Team (Latest Contact Info)Rzkuohoyuwb24/26/2026 11:00 AM EDTOffice Visit [facility] [place] [facility] [address] [place] [phone] Srini Velazco DO [address] [facility] [address] [place] [address] Health MaintenanceDue DateLast DoneCommentsCT Cncciwvgtoly91/11/1973Colonoscopy 1972FIT1972FOBT10/10/19722983Dtbpoxueprwun61/11/1973MMR Vaccines (1 of 1 - Standard series)1973DTaP/Tdap/Td Vaccines (1 - Tdap)10/11/1979Hepatitis B Vaccines (1 of 3 - 19+ 3-dose series)10/11/19917439Smfvpptrl38/16/43716907/17/2023, 4COVID-19 Vaccine (2024- season)/, 10/15/2020, 09/17/2020Influenza Vaccine (#1)2025Pap Smear/04/2023 Colorectal Cancer Qmhpuxqzf61/06/2026FIT-DNAervical Cancer Fuvocygzn97/20/2030HPV/Duwmhs52, 04/15/2024, 04/10/2023HIB VaccinesAged OutNo longer eligible based on patient's age to complete this topic HPV VaccinesAged OutNo longer eligible based on patient's age to complete this topicHepatitis A VaccinesAged OutNo longer eligible based on patient's age to complete this topicIPV VaccinesAged OutNo longer eligible based on patient's age to complete this topicMeningococcal B VaccineAged OutNo longer eligible based on patient's age to complete this topicMeningococcal VaccineAged OutNo longer eligible based on patient's age to complete this topicPneumococcal Vaccine: Pediatrics (0 to 5 Years) and At-Risk Patients (6 to 64 Years)Aged OutNo longer eligible based on patient's age to complete this topicRotavirus VaccinesAged Out No longer eligible based on patient's age to complete this topic Procedures Procedure NamePriorityDate/TimeAssociated DiagnosisCommentsIGP, APT HPV,RFX 16/18,88Jnrwskg12/20/2025 12:00 AM EDT Screening for malignant neoplasm of cervix MM TOMOSYNTHESIS SCREENING BI07/17/2023 8:24 AM EST THINPREP TIS PAP AND HPV MRNA E6/E7 WITH REFLEX TO HPV 16,18/43Mrsjdwm31/10/2023 3:09 PM EDT Encounter for gynecological examination without abnormal finding Screening for malignant neoplasm of cervix from Last 3 Months or Most Recently Relevant to Health Maintenance Results * IGP, APT HPV,RFX 16/18,45 (04/20/2025 12:00 AM EDT)ComponentValueRef RangeTest MethodAnalysis TimePerformed AtPathologist SignatureDiagnosis:CommentLABC[facility]P Comment: NEGATIVE FOR INTRAEPITHELIAL LESION OR MALIGNANCY. CELLULAR CHANGES ASSOCIATED WITH INFLAMMATION ARE PRESENT. Specimen Adequacy:CommentLABCORPComment: Satisfactory for evaluation. ??Endocervical and/or squamous metaplastic cells (endocervical component) are present. Clinician Provided ICD10:CommentLABCORPComment:Z12.4Performed By:CommentLABCORP Comment:Cyndie Arita, Sample Tester Grinder ([facility])Cyto Comments.LABCORPNote: CommentLABCORPComment: The Pap smear is a screening test designed to aid in the detection of premalignant and malignant conditions of the uterine cervix. ??It is not a diagnostic procedure and should not be used as the sole means of detecting cervical cancer. ??Both false-positive and false-negative reports do occur. Test Methodology:CommentLABCORPComment: This liquid based ThinPrep(R) pap test was interpreted using the Datam(R) Genius(TM) Cervical Algorithm whole slide imaging system. HPV AptimaNegativeNegativeLABCORPComment: This nucleic acid amplification test detects fourteen high-risk HPV types (16,18,31,33,35,39,45,51,52,56,58,59,66,68) without differentiation. Specimen (Source)Anatomical Location / LateralityCollection Method / Volume Collection TimeReceived WmgjHcic39/20/777078/ Narrative [facility] - 04/22/2025 5:07 PM EDT Performed at: 01 - [facility] [address] ??[id number] Account Support Rep: Alethea Fatima MD, Phone: ??[phone] Performed at: ??02 - [facility] [address] ??[id number] Account Support Rep: Alethea Ftaima MD, Phone: ??[phone] Specimen Comment: No. of containers..01 ThinPrep Vial Authorizing ProviderResult TypeResult StatusWilliam Bakari WEAVER BLOOD ORDERABLESFinal ResultPerforming OrganizationAddressCity/State/ZIP CodePhone Number [facility] * MM TOMOSYNTHESIS SCREENING BI (07/17/2023 8:24 AM EST)Anatomical Region LateralityModalityOtherSpecimen (Source)Anatomical Location / Laterality Collection Method / VolumeCollection TimeReceived Time07/17/2023 8:24 AM EST Narrative 07/17/2023 8:25 AM EST [facility] ?[address] ? [place] [address] ? Mammography Report ? Signed ? Patient: VAIBHAV,WENDIE J ?MR#: [id number] ?? : 1970 ?Acct:[id number] ?? Age/Sex: 52 / F ?ADM Date: 07/16/23 ?? Loc: MAMMO ? Attending Dr: Kar Myles M.D. ? Ordering Physician: Kar Myles M.D. ?Results: ? Date of Service: 07/16/23 ?Follow Up: ? Procedure(s): MM tomosynthesis screening BI ?? Accession Number(s): [id number] ? cc: Kar Myles M.D. ? Patient Name: ? WENDIE HUBBARD ? MR#: [id number] ? : 1970 ? Exam Date: 07/16/2023 [...] at age ??62. ? LOCATION: ? [facility] ? BREAST COMPOSITION: ? Heterogeneously dense,which may [...] SHOULD BE BIOPSIED. ? Dictated by: Woody Andrade MD on 07/17/2023 at 08:23 ? Approved by: Woody Andrade MD on 07/17/2023 at 08:24 ? Dictated By: ?Woody Andrade M.D. ? Signed By: ?07/17/23824 ? DD/ 3 ? TD/TT: ? Configuration Management Advisor: Procedure Note Radiology, Radiologist, - 07/17/2023 [place] [address] Mammography Report Signed Patient: WENDIE HUBBARD JMR#: [id number] : 1970Acct:[id number] Age/Sex: 52 / FADM Date: 07/16/23 Loc: MAMMO Attending Dr: Kar Myles M.D. Ordering Physician: Kar Myles M.D.Results: Date of Service: 07/16/23Follow Up: Procedure(s): MM tomosynthesis screening BI Accession Number(s): [id number] cc: Kar Myles M.D. Patient Name: WENDIE HUBBARD MR#: [id number] : 1970 Exam Date: 07/16/2023 Ordering Doctor: DR Kar Desai RADIOLOGY REPORT PROCEDURE: MM TOMOSYNTHESIS SCREENING BI COMPARISON: MG MAMM SCREEN URSULA W CAD, 08/29/2019. MG MAMM SCREEN 3DBIL CAD, 05/16/2022. INDICATIONS: Screening Calculator Name NCI Breast Cancer Risk Assessment Tool 5 Year Breast Cancer Risk 0.60% Lifetime Breast Cancer Risk 5.20% Personal Breast Cancer No Personal Ovarian Cancer No Treatments None Family Cancers Grandmother-paternal with skin cancer at age 60. LOCATION: [facility] BREAST COMPOSITION: Heterogeneously dense,which may obscure smallmasses. [...] LUMP SHOULD BE BIOPSIED. Dictated by: Woody Andrade MD on 07/17/2023 at 08:23 Approved by: Woody Andrade MD on 07/17/2023 at 08:24 Dictated By: Woody Andrade M.D. Signed By:07/17/23824 DD/ 0824 TD/TT: Configuration Management Advisor: Authorizing ProviderResult TypeResult StatusMarc Shar MDCLINISYNC IMAGING Final Result * THINPREP TIS PAP AND HPV MRNA E6/E7 WITH REFLEX TO HPV 16,18/45 (04/10/2023 3:09 PM EDT)ComponentValueRef RangeTest MethodAnalysis TimePerformed At Pathologist SignatureCLINICAL INFORMATIONQUESTComment:None givenLMPQUEST Comment:NONE GIVENPREV. PAPQUESTComment:NONE GIVENPREV. BXQUESTComment:NONE GIVENSOURCEQUESTComment:None givenSTATEMENT OF ADEQUACYQUESTComment: Satisfactory for evaluation. Endocervical/transformation zone component absent. INTERPRETATION/RESULTQUESTComment: Cytology Results: Negative for intraepithelial lesion or malignancy. INFECTIONQUESTComment: Shift in vaginal fan suggestive of bacterial vaginosis. COMMENTQUESTComment: This Pap test has been evaluated with computer assisted technology. CYTOTECHNOLOGISTQUESTComment: EMP, CT(ASCP) CT screening location: [place] [address]. (ALWAYS MESSAGE)QUESTComment: EXPLANATORY NOTE: The Pap is a screening test for cervical cancer. It is not a diagnostic test and is subject to false negative and false positive results. It is most reliable when a satisfactory sample, regularly obtained, is submitted with relevant clinical findings and history, and when the Pap result is evaluated along with historic and current clinical information. HPV MRNA E6/E7Not DetectedNot DetectedQUESTComment: Methodology: Grocery Deliverer-Mediated Amplification This assay detects E6/E7 viral messenger RNA (mRNA) from 14 high-risk HPV types (16,18,31,33,35,39,45,51,52,56,58,59,66,68). Cervical sources are required for HPV testing. If a vaginal source from a patient who has had a total hysterectomy with removal of cervix was submitted, please contact the testing laboratory for alternative testing options. For additional information, please refer to http://education.[employer]/faq/AEF493l6 (This link if provided for information/ educational purposes only.) Specimen (Source)Anatomical Location / LateralityCollection Method / Volume Collection TimeReceived IxjzWbxt37/10/2023 3:09 PM EDT1 3:46 AM EDT Narrative Resulting Agency Comment Performing Organization Information ?Site ID: [id number] ?Name: [facility] ?Address: [address] [place] [address], [address] [place] [id number] ?Director: Bob Forrest MD Authorizing ProviderResult TypeResult StatusWilliam D Mora DOLAB CYTOLOGY ORDERABLESFinal ResultPerforming OrganizationAddressCity/State/ZIP CodePhone Number [facility] from Last 3 Months or Most Recently Relevant to Health Maintenance Insurance Care Teams Team MemberRelationshipSpecialtyStart DateEnd Date Kar Myles MD [address] [place] [phone] PCP - GeneralFamily Medicine08/07/23
--- OUTSIDE RECORDS SUMMARY | 2025-05-05 09:00 | XMS_ITS | CCD ---
Author Organization [facility] Care Team Providers Care Book Jacket Cover Machine Operator Name Role Phone LEIF, DR KAR De La Rosa Admitting Unavailable NADFRANCISCO, DR KAR De La Rosa Attending Unavailable LEIF, DR KAR De La Rosa Primary Care Unavailable LEIF, DR KAR De La Rosa Consulting Unavailable LEIF, DR KAR De La Rosa Admitting Unavailable LEIF, DR KAR De La Rosa Attending Unavailable LEIF, DR KAR De La Rosa Primary Care Unavailable [place], DR ANANTH Melo Consulting Unavailable LEIF, DR KAR De La Rosa Consulting Unavailable Kar Yadav MD Primary Care Provider Kar Yadav MD Unavailable Kar Yadav MD Primary Care Provider Kar Yadav MD Unavailable KAR YADAV Attending Unavailable LEIF, KAR Attending Unavailable LEIF, KAR Attending Unavailable NADFRANCISCO, KAR Attending Unavailable ASHLEE BLACKBURN Attending Unavailable Kar Yadav MD Primary Care Provider Kar Yadav MD Primary Care Provider Kar Yadav MD Unavailable Kar Yadav MD Primary Care Provider Medications Current Medications MedicationDrug Class(es)DatesSig (Normalized)Sig (Original)atorvastatin 40 mg oral tablet (11 sources)HMG-CoA Reductase InhibitorStart: 69-55-4257mggh 1 tablet by mouth at bedtimeatorvastatin (Lipitor) 40 MG tablet Indications: Dyslipidemia Take 1 tablet (40 mg) by mouth at bedtime 30 tablet 5 10/09/2024 Activecodeine phosphate 2 mg/ml / guaiFENesin 20 mg/ml oral solution (2 sources)Opioid AgonistStart: 08-07-2023 End: 83-62-8011pxlg 10 mL by mouth every six hours for coughguaiFENesin-codeine (Robitussin-AC) 100-10 MG/5ML syrup Indications: Acute bronchitis due to other s pecified organisms Take 10 mL by mouth every 6 (six) hours if needed for cough for up to 7 days 150mL 0 08/07/2023 08/14/2023 ActiveglipiZIDE 10 mg oral tablet (5 sources)SulfonylureaStart: 12-31-2024 End: 88-10-2764bous 1 tablet by mouth in the morningglipiZIDE (Glucotrol) 10 MG tablet Indications: Type 2 diabetes mellitus with hyperglycemia, without long- term current use of insulin (HCC) Take 1 tablet (10 mg) by mouth in the morning and 1 tablet (10 mg) in the evening. Take before meals. 60 tablet 5 12/31/2024 01/23/2025 DiscontinuedhydroCHLOROthiazide 25 mg oral tablet (15 sources)Thiazide DiureticStart: 37-99-0939jbqh 1 tablet by mouth once daily hydroCHLOROthiazide (HYDRODiuril) 25 MG tablet Indications: Benign essential hypertension TAKE 1 TABLET BY MOUTH EVERY DAY 90 tablet 2 12/23/2024 Active Start: 59-71-9363vffn 1 tablet by mouth once dailyhydroCHLOROthiazide (HYDRODiuril) 25 MG tablet Indications: Benign essential hypertension (CMS/HCC) Take 1 tablet (25 mg) by mouth Daily 30 tablet 3 10/07/2024 ActivelevoFLOXacin 750 mg oral tablet (2 sources)Quinolone AntimicrobialStart: 08-07-2023 End: 37-58-2733fhwd 1 tablet by mouth in the morninglevoFLOXacin (Levaquin) 750 MG tablet Indications: Acute bronchitis due to other specified organisms Take 1 tablet (750 mg) by mouth in the morning for 7 days. 7 tablet 0 08/07/2023 08/14/2023 Activelevothyroxine sodium 0.075 mg oral tablet (20 sources)l-ThyroxineStart: 72-67-3815hayi 1 tablet by mouth once daily levothyroxine (Synthroid, Levoxyl) 75 MCG tablet Indications: Adult hypothyroidism Take 1 tablet (75 mcg) by mouth Daily 90 tablet 3 10/09/2024 ActiveStart: 04-07-2024 End: 18-28-7692vuxz 1 tablet by mouth once dailylevothyroxine (Synthroid, Levoxyl) 50 MCG tablet Indications: Adult hypothyroidism (CMS/HCC) Take 1tablet (50 mcg) by mouth Daily 90 tablet 3 04/07/2024 10/09/2024 Discontinued (Reorder) Start: 33-50-9570amjl 1 tablet by mouth in the morninglevothyroxine (Synthroid, Levoxyl) 50 MCG tablet Take 50 mcg by mouth in the morning. 03/20/2023 Snlqmd89 hr metFORMIN hydrochloride 500 mg extended release oral tablet (12 sources)BiguanideStart: 85-38-4941ffbx 1 tablet by mouth every twenty-four hours in the morningmetFORMIN XR (Glucophage-XR) 500 MG 24 hr tablet Indications: Type 2 diabetes mellitus with hyperglycemia, without long-term current use of insulin (HCC) Take 1 tablet (500 mg) by mouth in the morning and 1 tablet (500 mg) before bedtime. Do not crush, chew, or split. 60 tablet 5 02/27/2025 ActiveStart: 11-20-2024 End: 38-15-9906tcdg 1 tablet by mouth every twenty-four hours in the morning metFORMIN XR (Glucophage-XR) 500 MG 24 hr tablet Indications: Type 2 diabetes mellitus with hyperglycemia, without long-term current use of insulin (HCC) Take 1 tablet (500 mg) by mouth in the morning and 1 tablet (500 mg) before bedtime. Do not crush, chew, or split. 60 tablet 5 12/31/2024 02/27/2025 Discontinued (Reorder)Start: 61-64-3236jhox 1 tablet by mouth every twenty-four hours at mealtimemetFORMIN XR (Glucophage-XR) 500 MG 24 hr tablet Indications: Type 2 diabetes mellitus with hyperglycemia, without long-term current use of insulin (CMS/HCC) Take 1 tablet (500 mg) by mouth in the morning. Take with meals. Do not crush, chew, or split. 30 tablet 3 11/03/2024 Activepotassium chloride 20 meq extended release oral tablet (7 sources)Start: 54-10-1728udun 1 tablet by mouth once dailypotassium chloride CR (K-Tab) 20 MEQ ER tablet Indications: Hypokalemia TAKE 1 TABLET (20 MEQ) BY MOUTH DAILY DO NOT CRUSH, CHEW, OR SPLIT. 90 tablet 2 01/22/2025 ActiveStart: 46-63-0315gmoc 1 tablet by mouth once dailypotassium chloride CR (K-Tab) 20 MEQ ER tablet Indications: Hypokalemia Take 1 tablet (20 mEq) by mouth Daily Do not crush, chew, or split. 30 tablet 5 12/31/2024 ActiveStart: 71-12-5939sxwq 1 tablet by mouth once dailypotassium chloride CR (K-Tab) 20 MEQ ER tablet Indications: Hypokalemia Take 1 tablet (20 mEq) by mouth Daily Do not crush, chew, or split. 30 tablet 5 12/31/2024 ActivepredniSONE 50 mg oral tablet (2 sources)Start: 08-07-2023 End: 05-49-8795umbl 1 tablet by mouth in the morningpredniSONE (Deltasone) 50 MG tablet Indications: Acute bronchitis due to other specified organisms Take 1 tablet (50 mg) by mouth in the morning for 6 days. 6 tablet 0 08/07/2023 08/13/2023 Sxfwrr52 hr scopolamine 0.0139 mg/hr transdermal system (7 sources)AnticholinergicStart: 17-08-9033wvaydjpzsjp (Transderm-Scop) 1 mg/72 hr patch 72 hour patch Indications: Motion sickness, initial encounter Place 1 patch on the skin every 3rd (third) day if needed (nausea) 4 patch 2 10/07/2024 Active0.25 mg, 0.5 mg dose 1.5 ml semaglutide 1.34 mg/ml pen injector (7 sources)Start: 10-07-2024 End: 39-25-5006pmknfymycjn (Ozempic) 2 MG/1.5ML solution pen-injector Indications: Type 2 diabetes mellitus with hyperglycemia, without long-term current use of insulin (CMS/HCC) 0.25 mg SC weekly x 4 weeks, then 0.5 mg weekly 1 each 3 10/09/2024 ActiveTirzepatide (Mounjaro) 2.5 MG/0.5ML solution auto-injector (5 sources)Start: 12-31-2024 End: 21-95-7556kkkwqx 2.5 mg by subcutaneous injection every weekTirzepatide (Mounjaro) 2.5 MG/0.5ML solution auto-injector Indications: Type 2 diabetes mellitus with hyperglycemia, without long-term current use of insulin (HCC) Inject 2.5 mg under the skin 1 (one) time per week 2 mL 12/31/2024 01/23/2025 DiscontinuedStart: 80-86-2869pgcekh 2.5 mg by subcutaneous injection every week Tirzepatide (Mounjaro) 2.5 MG/0.5ML solution auto-injector Indications: Type 2 diabetes mellitus with hyperglycemia, without long-term current use of insulin (HCC) Inject 2.5 mg under the skin 1 (one) time per week 2 mL 12/31/2024 Active Tirzepatide (Mounjaro) 5 MG/0.5ML solution auto-injector (4 sources)Start: 08-20-8570eqsari 5 mg by subcutaneous injection every week Tirzepatide (Mounjaro) 5 MG/0.5ML solution auto-injector Indications: Type 2 diabetes mellitus withhyperglycemia, without long-term current use of insulin (HCC) INJECT 5 MG UNDER THE SKIN ONE TIME PER WEEK 0.5 mL 3 02/17/2025 Active Start: 45-32-8985wuxzkq 5 mg by subcutaneous injection every weekTirzepatide (Mounjaro) 5 MG/0.5ML solution auto-injector Indications: Type 2 diabetes mellitus withhyperglycemia, without long-term current use of insulin (HCC) Inject 5 mg under the skin 1 (one) time per week 2 mL 01/23/2025 Active Problems Active Problems Problem ClassificationProblemDateDocumented DateEpisodic/ChronicDiabetes mellitus with complications (20 sources)Hyperglycemia due to type 2 diabetes mellitus; Translations: [Type 2 diabetes mellitus with hyperglycemia]Onset: 582559-43-4735Nmeechf Disorders of lipid metabolism (20 sources)Dyslipidemia; Translations: [Hyperlipidemia, unspecified]Onset: 116571-94-9154OrckdlaZjmvtcgpo hypertension (20 sources)Benign essential hypertension; Translations: [Essential (primary) hypertension]Onset: 770348-68-3129BmeuxdvFyuow injuries and conditions due to external causes (2 sources)Motion sickness; Translations: [Motion sickness, initial encounter] 47-01-7954WaktogfdOndar liver diseases (9 sources)Fatty (change of) liver, not elsewhere classified; Translations: [Other chronic nonalcoholic liver disease]Onset: 970216-71-8696Wahodov Other screening for suspected conditions (not mental disorders or infectious disease) (11 sources)Encounter for screening mammogram for malignant neoplasm of breast; Translations: [Cancer cervix screening status]Onset: 46-68-1317MvpmzwloHjmzbxat codes; unclassified (1 source)Family history of malignant neoplasm of other organs or systems; Translations: [FAM HX MALIG NEOPLASM OTH ORGN/SYS]Onset: 81-08-6194Axzocwtd Thyroid disorders (20 sources)Hypothyroidism, unspecified; Translations: [Hypothyroidism]Onset: 209821-42-7654Amzxpyf Past or Other Problems Problem ClassificationProblemDateDocumented DateEpisodic/ChronicAcute bronchitis (20 sources)Acute infective bronchitis; Translations: [Acute bronchitis due to other specified organisms]Onset: 08-07-2023 Resolved: 664921-96-0756OcckloxuTosywylt mellitus without complication (15 sources)Prediabetes; Translations: [Prediabetes]Onset: 266500-69-7278 EpisodicFluid and electrolyte disorders (10 sources)Hypokalemia; Translations: [Hypokalemia]Onset: 179055-17-9339 EpisodicOther circulatory disease (8 sources)Elevated blood-pressure reading without diagnosis of hypertension; Translations: [Elevated blood-pressure reading, without diagnosis of hypertension]Onset: 454552-13-7202Jqchmskr Results Test NameValueInterpretationReference RangeFacilityUS RIGHT UPPER QUADRANTon 92-79-9419[place]bsIn[place], [place] [address] Ultrasound Report Signed Patient: WENDIE HUBBARD MR#: [id number] : 1970 Acct:[id number] Age/Sex: 54 / F ADM Date: 11/14/24 Loc: US Attending Dr: Kar Yadav M.D. Ordering Physician: Kar Yadav M.D. Date of Service: 11/14/24 Procedure(s): US right upper quadrant Accession Number(s): [id number] cc: Kar Yadav M.D. [facility] [place] [id number] Patient Name: WENDIE HUBBARD MRN: [id number] date: 1970 Sex: F Assigned Patient Location: US Current Patient Location: US Accession/Order Number: [id number] Exam Date: 11/14/2024 09:28 Report Date: 11/14/2024 09:30 At the request of: KAR YADAV MD Procedure: US right upper quadrant EXAMINATION TYPE: US right upper quadrant DATE OF EXAM ORDERED: 11/14/2024 9:08 AM HISTORY: Elevated Liver Function Test, COMPARISON: NONE TECHNIQUE: Realtime imaging limited to the right upper quadrant was performed. FINDINGS: The gallbladder appears within normal limits without evidence of cholelithiasis. The gallbladder wall measures 2 mm in thickness. The common bile but measures 3 mm in diameter. No intrahepatic or extrahepatic biliary dilatation is seen. The liver is echogenic in respect to the right renal cortex suggesting hepatic steatosis. There is hepatopedal flow the main portal vein. Partial visualization of the right kidney reveals no gross hydronephrosis. Partial visualization of the pancreas reveals no abnormality. US/US right upper quadrant IMPRESSION: No sonographic evidence of acute cholecystitis. Findings suggest hepatic steatosis. Impression dictated by: Denzel Christianson M.D. 11/14/2024 9:30 AM Dictation Location: [place] [address] Electronically authenticated by: [id number] Y Date: 11/14/2024 09:30 Dictated By: Denzel Christianson M.D. Signed By: 11/14/2432 DD/ 9 TD/TT: Military Pilot:TBHRadiology, Radiologist, - 11/14/2024 [place] [address] Ultrasound Report Signed Patient: WENDIE HUBBARD MR#: [id number] : 1970 Acct:[id number] Age/Sex: 54 / F ADM Date: 11/14/24 Loc: US Attending Dr: Kar Yadav M.D. Ordering Physician: Kar Yadav M.D. Date of Service: 11/14/24 Procedure(s): US right upper quadrant Accession Number(s): [id number] cc: Kar Yadav M.D. [place] [id number] Patient Name: WENDIE HUBBARD MRN: [id number] date: 1970 Sex: F Assigned Patient Location: US Current Patient Location: US Accession/Order Number: [id number] Exam Date: 11/14/2024 09:28 Report Date: 11/14/2024 09:30 At the request of: KAR YADAV MD Procedure: US right upper quadrant EXAMINATION TYPE: US right upper quadrant DATE OF EXAM ORDERED: 11/14/2024 9:08 AM HISTORY: Elevated Liver Function Test, COMPARISON: NONE TECHNIQUE: Realtime imaging limited to the right upper quadrant was performed. FINDINGS: The gallbladder appears within normal limits without evidence of cholelithiasis. The gallbladder wall measures 2 mm in thickness. The common bile but measures 3 mm in diameter. No intrahepatic or extrahepatic biliary dilatation is seen. The liver is echogenic in respect to the right renal cortex suggesting hepatic steatosis. There is hepatopedal flow the main portal vein. Partial visualization of the right kidney reveals no gross hydronephrosis. Partial visualization of the pancreas reveals no abnormality. US/US right upper quadrant IMPRESSION: No sonographic evidence of acute cholecystitis. Findings suggest hepatic steatosis. Impression dictated by: Denzel Christianson M.D. 11/14/2024 9:30 AM Dictation Location: [place] [address] Electronically authenticated by: [id number] Y Date: 11/14/2024 09:30 Dictated By: Denzel Chirstianson M.D. Signed By: 11/14/2432 DD/ 9 TD/TT: Military Pilot: NICHOLAS HealthcareRadiology Study observation (narrative)NICHOLAS HealthcareUS RIGHT UPPER QUADRANTOrdered By: Radiologist Radiology on 53-99-7060RNRD Healthcare Work Phone: aLL CBC WITH AUTO DIFFon 75-95-4385EQHTLQYYH ABSOLUTE AUTO0.1NOMS HealthcareBasophils/100 WBC (Bld)0.6 %0.2 - 2.0 %[facility] Eosinophils/100 WBC (Bld)2.7 %0.9 - 7.0 %NOMS HealthcareErythrocyte distribution width (RBC) [Ratio]12.2 %11.0 - 15.0 %NOMS HealthcareHematocrit (Bld) [Volume fraction]44.8 %36.0 - 48.0 %NOM HealthcareHemoglobin (Bld) [Mass/Vol]15.8 g/dL 12.0 - 16.0 g/dLNOMadison Medical CenterIMMATURE GRANULOCYTES ABS AUTO0.03NOMS [facility] Immature granulocytes/100 WBC (Bld)0.3 %0.0 - 0.5 %NOM HealthcareInterpretation and review of laboratory resultsAbnormalNOMadison Medical CenterLYMPHOCYTES ABSOLUTE AUTO3.7NOMS HealthcareLymphocytes/100 WBC (Bld)37.7 %20.5 - 60.0 %NOMSamaritan HospitalH (RBC) [Entitic mass]29.6 pg26.7 - 34.0 pgNOMadison Medical CenterMCHC (RBC) [Mass/Vol]35.3 g/bRLytk47.9 - 35.2 g/dLOzarks Medical CenterMCV (RBC) [Entitic vol] 83.9 fL81.0 - 99.0 fLNOMadison Medical CenterMONOCYTES ABSOLUTE AUTO0.5NOMS [facility] Monocytes/100 WBC (Bld)5.5 %1.7 - 12.0 %NOM HealthcareNEUTROPHILS ABSOLUTE AUTO 5.2NOMS HealthcareNeutrophils/100 WBC (Bld)53.2 %43.0 - 75.0 %NOMWashington [facility] Platelet mean volume (Bld) [Entitic vol]9.9 fL9.5 - 13.5 fLNOMadison Medical CenterTBH EO #0.3NOMS [facility] YoungstownTBH [id number] [facility] RBC5.34NOMS [facility] WBC9.8 NOMS HealthcareCLINISYNCNOMS [facility] Hospital - YoungstownMM TOMOSYNTHESIS SCREENING BIon 55-86-0942IruIn[place], [place] [address] Mammography Report Signed Patient: WENDIE HUBBARD MR#: [id number] : 1970 Acct:[id number] Age/Sex: 52 / F ADM Date: 07/16/23 Loc: MAMMO Attending Dr: Kar Yadav M.D. Ordering Physician: Kar Yadav M.D. Results: Date of Service: 07/16/23 Follow Up: Procedure(s): MM tomosynthesis screening BI Accession Number(s): [id number] cc: Kar Yadav M.D. Patient Name: WENDIE HUBBARD MR#: [id number] : 1970 Exam Date: 07/16/2023 Ordering Doctor: DR Kar Yadav . RADIOLOGY REPORT PROCEDURE: MM TOMOSYNTHESIS SCREENING [...] skin cancer at age 62. LOCATION: The [facility] BREAST COMPOSITION: Heterogeneously dense,which may [...] BIOPSIED. Dictated by: Ananth Lomax MD on 07/17/2023 at 08:23 Approved by: Ananth Lomax MD on 07/17/2023 at 08:24 Dictated By: Ananth Lomax M.D. Signed By: 07/17/2325 DD/ 3 TD/TT: Military Pilot:TBHRadiology, RadiologistMD - 07/17/2023 [place] [address] Mammography Report Signed Patient: WENDIE HUBBARD MR#: [id number] : 1970 Acct:[id number] Age/Sex: 52 / F ADM Date: 07/16/23 Loc: MAMMO Attending Dr: Kar Yadav M.D. Ordering Physician: Kar Yadav M.D. Results: Date of Service: 07/16/23 Follow Up: Procedure(s): MM tomosynthesis screening BI Accession Number(s): [id number] cc: Kar Yadav M.D. Patient Name: WENDIE HUBBARD MR#: [id number] : 1970 Exam Date: 07/16/2023 Ordering Doctor: DR Kar Yadav . RADIOLOGY REPORT PROCEDURE: MM TOMOSYNTHESIS SCREENING [...] skin cancer at age 62. LOCATION: The [facility] BREAST COMPOSITION: Heterogeneously dense,which may [...] BIOPSIED. Dictated by: Ananth Lomax MD on 07/17/2023 at 08:23 Approved by: Ananth Lomax MD on 07/17/2023 at 08:24 Dictated By: Ananth Lomax M.D. Signed By: 07/17/2325 DD/ 3 TD/TT: Military Pilot: NICHOLAS HealthcareRadiology Study observation (narrative)[facility] TOMOSYNTHESIS SCREENING BIOrdered By: Radiologist Radiology on 81-00-2383QKDM Healthcare Work Phone: mg MAMM SCREEN 3D URSULA CADon 31-59-9537FX MAMM SCREEN 3D URSULA CADPatient: WENDIE HUBBARD Exam Date: 05/16/2022 : 1970 Gender:F Ordering : DR KAR YADAV . Admission #: [id number] Family : Order #: [id number] CLICK HERE TO VIEW EXAM RADIOLOGY REPORT [...] skin cancer at age 62. LOCATION: The [facility] BREAST COMPOSITION: Heterogeneously dense,which may [...] by: Ananth Lomax MD on 05/16/2022 at 10:49NormalThKettering Health Dayton AUTO DIFFon 10-08-7363SZCA #0.0 103/ulNormal0.0-0.1Pomerene HospitalComment on above:Performed By: #### CBC #### [facility] [address] [place] [address] Dr. Cash GrayBasophils/100 WBC (Bld)0.6 %Normal0.2-2.0[facility] Comment on above:Performed By: #### CBC #### [facility] [address] [place] [address] [address] Cash Butts #0.3 103/ulNormal0.0-0.7The [facility]S Medical CenterComment on above: Performed By: #### CBC #### [facility] [address] [place] [address] Dr. aCsh Ibanezosinophils/100 WBC (Bld)3.9 %Normal0.9-7.0[facility] Comment on above:Performed By: #### CBC #### [facility] [address] [place] [address] Dr. Cash Ibanezrythrocyte distribution width (RBC) [Ratio]12.3 %Engcjf16.0-15.[address] [facility] CenterCompontiac general hospital on above:Performed By: #### CBC #### [facility] [address] [place] [address] Dr. Cash GrayHematocrit (Bld) [Volume fraction]43.1 %Rbyggn25.0-48.0The [facility]let HospitalComment on above:Performed By: #### CBC #### [facility] [address] [place] [address] Dr. Cash GrayHemoglobin (Bld) [Mass/Vol]14.3 g/iICxkdhr55.0-16.0The [facility] Medical CenterComment on above:Performed By: #### CBC #### [facility] [address] [place] [address] Dr. Cash Nicolas #0.02 10e3/ulNormal0.00-0.03The [facility] CenterCompontiac general hospital on above:Performed By: #### CBC #### [facility] [address] [place] [address] Dr. Cash Nicolas %0.3 %Normal0.0-0.5The [facility] on above: Performed By: #### CBC #### [facility] [address] [place] [address] Dr. Cash StarrH #2.6 103/ulNormal1.2-3.8The [facility] Medical CenterComment on above:Performed By: #### CBC #### [facility] [address] [place] [address] Dr. Cash Starrhocytes/100 WBC (Bld)36.3 %Guydeb20.5-60.0The [facility] Medical CenterComment on above:Performed By: #### CBC #### [facility] [address] [place] [address] Dr. Cash JohnsonUAL DIFF REQNONormalThe [facility]'S Medical CenterComment on above: Performed By: #### CBC #### [facility] [address] [place] [address] [address] Cash Mary (RBC) [Entitic mass]28.7 hcYpjlsy32.7-34.0The [facility] Medical CenterComment on above:Performed By: #### CBC #### [facility] [address] [place] [address] Dr. Cash Mary (RBC) [Mass/Vol]33.2 g/qAGcxxcj52.9-35.2The [facility] Medical CenterComment on above:Performed By: #### CBC #### [facility] [address] [place] [address] Dr. Cash Mary (RBC) [Entitic vol]86.5 hVQqlcak71.0-99.0The [facility] Medical CenterComment on above:Performed By: #### CBC #### [facility] [address] [place] [address] Dr. Cash Sapp #0.4 103/ulNormal0.3-0.8The [facility] Medical CenterComment on above:Performed By: #### CBC #### [facility] [address] [place] [address] Dr. Cash Cochranocytes/100 WBC (Bld)5.7 %Normal1.7-12.0The [facility] Comment on above:Performed By: #### CBC #### [facility] [address] [place] [address] Dr. Cash Franz #3.8 103/ulNormal1.4-6.5The [facility] Medical CenterComment on above:Performed By: #### CBC #### [facility] [address] [place] [address] Dr. Cash Lugoutrophils/100 WBC (Bld)53.2 %Jxmxob14.0-75.0The [facility] Medical CenterComment on above:Performed By: #### CBC #### [facility] [address] [place] [address] Dr. Cash Murillolet mean volume (Bld) [Entitic vol]10.6 fLNormal9.5-13.5The [facility] Medical CenterComment on above:Performed By: #### CBC #### [facility] [address] [place] [address] Dr. Cash GrayPLT231 103/lcMrkvvp487-469Ewy [facility] CenterCompontiac general hospital on above: Performed By: #### CBC #### [facility] [address] [place] [address] Dr. Cash GrayRBC4.98 106/ulNormal4.20-5.40The [facility] Medical CenterComment on above:Performed By: #### CBC #### [facility] [address] [place] [address] Dr. Cash GrayWBC7.2 103/ulNormal4.0-11.0The [facility] CenterCompont[facility] hospital on above: Performed By: #### CBC #### [facility] [address] [place] [address] Dr. Cash Kelly T3on 92-75-4672JFIH T32.65 pg/mlLNormal2.18-3.98The [facility] CenterComp[facility] hospital on above:Performed By: #### BMP, LIVER, LIPID, TSH, FT3 #### [facility] [address] [place] [address] Dr. Cash Kelly T4on 37-49-1762Ofnb T4 [Mass/Vol]1.12 ng/dLNormal0.76-1.[address] [facility] CenterComp[facility] on above:Performed By: #### FT4 #### [facility] [address] [place] [address] Dr. Cash GrayGLYCOHEMOGLOBIN A1Con 75-63-8578OTZ RECOMMENDATIONSEE BELOWNormal The [facility] CenterCompontiac [facility] hospital on above:Result Comment: ADA RECOMMENDED LIMIT 4.0 - 6.0 ADA THERAPEUTIC TARGET < 7.0 ACTION SUGGESTED > 7.0Performed By: #### A1C #### [facility] [address] [place] [address] Dr. Cash GrayHbA1c (Bld) [Mass fraction]6.0 %Normal4.5-6.2The Willet HospitalComment on above:Performed By: #### A1C #### [facility] [address] [place] [address] Dr. Cash TroyID PROFILEon 16-51-4171TAZQ-HDL RATIO NORMSEE [facility] on above:Result Comment: 3.3 - 4.4 LOW RISK 4.4 - 7.1 AVERAGE RISK 7.1 - 11.0 MODERATE RISK >11.0 HIGH RISKPerformed By: #### BMP, LIVER, LIPID, TSH, FT3 #### [facility] [address] [place] [address] Dr. Cash Figueredoesterol [Mass/Vol]260 mg/dLCritically high<=200The [facility] on above:Performed By: #### BMP, LIVER, LIPID, TSH, FT3 #### [facility] [address] [place] [address] Dr. Cash GrayCholesterol in HDL [Mass/Vol]50 mg/zYMyvymb27-49NalMary [facility] on above:Performed By: #### BMP, LIVER, LIPID, TSH, FT3 #### [facility] [address] [place] [address] Dr. Cash Figueredoesterol in LDL [Mass/Vol]190.0 mg/dLWilson [facility] on above:Performed By: #### BMP, LIVER, LIPID, TSH, FT3 #### [facility] [address] [place] [address] Dr. Cash Espino.total/Cholesterol in HDL [Mass ratio]5.2 {ratio} NormalMary Rutan Hospital on above:Performed By: #### BMP, LIVER, LIPID, TSH, FT3 #### [facility] [address] [place] [address] Dr. Cash Dorantes NORMAL> or = 60 mg/dl - LOW CARDIOVASCULAR RISK <40 mg/dl - HIGH CARDIOVASCULAR RISKWilson Memorial Hospital on above:Performed By: #### BMP, LIVER, LIPID, TSH, FT3 #### [facility] [address] [address] [address] Cash Rahman CALC NORMALSEE BELOWNoTriHealth Good Samaritan HospitalComment on above:Result Comment: <100 mg/dl OPTIMAL 100 - 129 mg/dl NEAR OR ABOVE OPTIMAL 130 - 159 mg/dl BORDERLINE HIGH 160 - 189 mg/dl HIGH >190 mg/dl VERY HIGH Performed By: #### BMP, LIVER, LIPID, TSH, FT3 #### [facility] [address] [address] [address] Cash GrayTriglyceride [Mass/Vol]100 mg/dLNormal<=150The [facility] Comment on above:Performed By: #### BMP, LIVER, LIPID, TSH, FT3 #### [facility] [address] [place] [address] Dr. Cash GrayVLDL CALC20.0 mg/dLNoTriHealth Good Samaritan HospitalComment on above: Performed By: #### BMP, LIVER, LIPID, TSH, FT3 #### [facility] [address] [place] [address] Dr. Cash Cleary PROFILEon 20-41-0237Zemzjjx [Mass/Vol]3.5 g/dLNormal3.4-5.[address] [facility] CenterCompontiac [facility] on above:Performed By: #### BMP, LIVER, LIPID, TSH, FT3 #### [facility] [address] [place] [address] Dr. Cash GrayAlbumin/Globulin [Mass ratio]0.8 {ratio}NormalThe [facility]'S Medical CenterComment on above:Performed By: #### BMP, LIVER, LIPID, TSH, FT3 #### [facility] [address] [place] [address] Dr. Cash Key [Catalytic activity/Vol]113 U/YLumfdu77-388Van [facility] on above:Performed By: #### BMP, LIVER, LIPID, TSH, FT3 #### [facility] [address] [place] [address] Dr. Cash Yadav [Catalytic activity/Vol]61 U/LCritically dybt48-12Gfn [facility] Medical CenterComment on above:Performed By: #### BMP, LIVER, LIPID, TSH, FT3 #### [facility] [address] [place] [address] Dr. Cash GrayAST [Catalytic activity/Vol]26 U/UJbxecm38-00Zxe [facility] Medical CenterComment on above:Performed By: #### BMP, LIVER, LIPID, TSH, FT3 #### [facility] [address] [place] [address] Dr. Cash CamposI, CONJUGATED0.1 mg/dLNormal0.0-0.2The [facility] Comment on above:Performed By: #### BMP, LIVER, LIPID, TSH, FT3 #### [facility] [address] [place] [address] Dr. Cash Camposirubin [Mass/Vol]0.2 mg/dLNormal0.2-1.0[facility] Comment on above:Performed By: #### BMP, LIVER, LIPID, TSH, FT3 #### [facility] [address] [place] [address] Dr. Cash GrayGlobulin (S) [Mass/Vol]4.3 g/dLNormalThe [facility] Medical CenterComment on above:Performed By: #### BMP, LIVER, LIPID, TSH, FT3 #### [facility] [address] [place] [address] Dr. Cash GrayProtein [Mass/Vol]7.8 g/dLNormal6.4-8.2[facility] Comment on above:Performed By: #### BMP, LIVER, LIPID, TSH, FT3 #### [facility] [address] [place] [address] Dr. Cash GrayPROF CHEM 8 (BAS METB)on 44-21-9194Evhbe gap [Moles/Vol]11.1 mmol/LNormalPomerene HospitalComment on above:Performed By: #### BMP, LIVER, LIPID, TSH, FT3 #### [facility] [address] [place] [address] Dr. Cash GrayCalcium [Mass/Vol]8.9 mg/dLNormal8.5-10.1The [facility] Comment on above:Performed By: #### BMP, LIVER, LIPID, TSH, FT3 #### [facility] [address] [address] [address] Cash GrayChloride [Moles/Vol]104 mmol/TQsisvs98-297Aos [facility] Comment on above:Performed By: #### BMP, LIVER, LIPID, TSH, FT3 #### [facility] [address] [place] [address] Dr. Cash GrayCO2 [Moles/Vol]24.0 mmol/UCzznge77.0-32.0The [facility] Comment on above:Performed By: #### BMP, LIVER, LIPID, TSH, FT3 #### [facility] [address] [place] [address] Dr. Cash GrayCreatinine [Mass/Vol]0.91 mg/dLNormal0.55-1.02[facility] HospitalComment on above:Performed By: #### BMP, LIVER, LIPID, TSH, FT3 #### [facility] [address] [place] [address] Dr. Cash IbanezGFR-AF GRENADIAN>60Normal>=60The [facility] Medical CenterComment on above:Performed By: #### BMP, LIVER, LIPID, TSH, FT3 #### [facility] [address] [place] [address] Dr. Cash IbanezGFR-NON AF GRENADIAN>60Normal>=60The [facility] Medical CenterComment on above:Performed By: #### BMP, LIVER, LIPID, TSH, FT3 #### [facility] [address] [place] [address] Dr. Cash GrayGlucose [Mass/Vol]126 mg/dLNormalThe [facility] Medical CenterComment on above:Performed By: #### BMP, LIVER, LIPID, TSH, FT3 #### [facility] [address] [place] [address] Dr. Cash GrayPerformed By: #### A1C #### [facility] [address] [place] [address] Dr. Cash GrayPotassium [Moles/Vol]4.1 mmol/LNormal3.5-5.1The [facility] Comment on above:Performed By: #### BMP, LIVER, LIPID, TSH, FT3 #### [facility] [address] [address] [address] Cash GraySodium [Moles/Vol]135 mmol/LCritically lji630-697Txg [facility] Medical CenterComment on above:Performed By: #### BMP, LIVER, LIPID, TSH, FT3 #### [facility] [address] [place] [address] Dr. Cash GrayUrea nitrogen [Mass/Vol]13.0 mg/dLNormal7.0-18.0The [facility] Medical CenterComment on above:Performed By: #### BMP, LIVER, LIPID, TSH, FT3 #### [facility] [address] [place] [address] Dr. Cash GrayUrea nitrogen/Creatinine [Mass ratio]14.3 mg/mgNormalThe [facility] Medical CenterComment on above:Performed By: #### BMP, LIVER, LIPID, TSH, FT3 #### [facility] [address] [place] [address] Dr. Cash Frederick 31-64-9422COD5.830 uIU/mLNormal0.358-3.740The [facility] Medical CenterComment on above:Performed By: #### BMP, LIVER, LIPID, TSH, FT3 #### [facility] [address] [place] [address] Dr. Cash Gray Vital Signs Date TimeVital SignValuePerforming IglmdwmjxTywgoojb83-78-9160 11:040Body fdonls427.6 cmCherichalo Blackburn DO Work Phone: noMadison Medical CenterPokxvikryo89-52-8789 11:17-0400Body mass index (BMI) [Ratio]20.34 kg/a2OsspilkAshlee Blackburn DO Work Phone: noMadison Medical CenterNgbeyphayl27-88-9122 11:17-040Body .15 kgWiannelieseradha Blackburn DO Work Phone: noMS Oomzraqsli51-65-9484 11:17-0400Diastolic blood eadxxhos74 mm[Hg]Ashlee Blackburn DO Work Phone: noMadison Medical CenterAkuswhkcpf05-90-5763 11:17-0400Systolic blood nzmrrrit248 mm[Hg]Ashlee Blackburn DO Work Phone: noMadison Medical CenterFfsvmvemib22-25-9608 09:06-0400Body lqxuix408.6 cmKar Yadav MD Work Phone: [facility] CenterMerywqwxzr67-48-0026 09:06-0400Body mass index (BMI) [Ratio]25.02 kg/m2Kar Yadav MD Work Phone: [facility] CenterMgnyzcfxlf50-89-8279 09:06-0400Body temperature 97.11 [degF]Kar Yadav MD Work Phone: [facility] CenterAeeeqzgvle20-80-0909 09:06-0400Body ojqsxo65.31 kgKar Yadav MD Work Phone: [facility] CenterYsgcmtqpph11-91-2372 09:06-0400Diastolic blood vomnearw01 mm[Hg]Kar Yadav MD Work Phone: [facility] CenterWcsgokjfad91-89-7060 09:06-0400Heart rate96 /min Kar Yadav MD Work Phone: [facility] CenterXbtjljzmsy19-08-0536 09:06-0400Respiratory rate20 /minKar Yadav MD Work Phone: [facility] CenterEljkyrlgkc63-22-9902 09:06-5965KwY9% (BldA) [Mass fraction]96 %Kar Yadav MD Work Phone: [facility] CenterHfoaduocrm37-15-0410 09:06-0400Systolic blood bkcdtras581 mm[Hg]Kar Yadav MD Work Phone: [facility] CenterRqiulbovxr17-38-1547 11:27-0400Body .6 cmKar Yadav MD Work Phone: 1(419)547-[address] [place], [place] [address]Ebxwqnocet84-13-6097 11:27-0400Body mass index (BMI) [Ratio]25.5 kg/m2Kar Yadav MD Work Phone: [facility] CenterQfbnsqxfkm86-40-0031 11:27-0400Body temperature 97.5 [degF]Kar Yadav MD Work Phone: [facility] CenterOzzmvjfbru72-44-8714 11:27-0400Body qmojvu73.67 kgKar Yadav MD Work Phone: 1(399)291-[address] [place], [place] [address]Gphebzacnb69-20-9252 11:27-0400Diastolic blood gikyzhkx23 mm[Hg]Kar Yadav MD Work Phone: [facility] CenterWsepyvlptn49-54-7612 11:27-0400Heart kscl779 /min Kar Yadav MD Work Phone: [facility] CenterUsqzkzlady21-13-7356 11:27-0400Respiratory rate20 /minKar Yadav MD Work Phone: 1(168)436-[address] [place], [place] [address]Bqdphdlbfo07-75-9184 11:27-6288RbD4% (BldA) [Mass fraction]98 %Kar Yadav MD Work Phone: [facility] CenterFecbsmnnew59-50-8365 11:27-0400Systolic blood ctwrhqow778 mm[Hg]Kar Yadav MD Work Phone: [facility] CenterImiwoqerws19-71-5891 14:32-0400Body uqfpoc235.6 cmKar Yadav MD Work Phone: [facility] CenterYkikqdyubd40-15-7013 14:32-0400Body mass index (BMI) [Ratio]28.89 kg/m2Kar Yadav MD Work Phone: [facility] CenterEkbanajwze85-83-5969 14:32-0400Body temperature 97.11 [degF]Kar Yadav MD Work Phone: [facility] CenterCrvjtlkjwz75-25-9764 14:32-0400Body xoqnck53.19 kgKar Yadav MD Work Phone: 1(419)547-[address] [place], [place] [address]Pusrefzyni40-02-7430 14:32-0400Diastolic blood mm[Hg]Kar Ydaav MD Work Phone: [facility] CenterMbukxlrjli54-85-0937 14:32-0400Heart qlay404 /min Kar Yadav MD Work Phone: [facility] CenterGwojzsnggb20-10-5584 14:32-0400Respiratory rate22 /minKar Yadav MD Work Phone: [facility] CenterXczaybukno21-96-7744 14:32-6211AzW7% (BldA) [Mass fraction]98 %Kar Yadav MD Work Phone: [facility] CenterKwgdtsynko67-58-6997 14:32-0400Systolic blood bumztldg021 mm[Hg]Kar Yadav MD Work Phone: [facility] CenterCcwduopsrn67-23-6374 10:12-0400Body qnivsw741.6 cmAshlee Blackburn DO Work Phone: [address] [address]Gvnbvneclp11-93-7110 10:12-0400Body mass index (BMI) [Ratio]28.08 kg/u1QwclsqvAshlee Blackburn DO Work Phone: [facility] CenterTfflfmlncf15-56-5237 10:12-0400Body lyyfau10.93 kgWichalo Blackburn DO Work Phone: [facility] CenterHysnethnvs53-40-5624 10:12-0400Diastolic blood ktkjhfii16 mm[Hg]Ashlee Blackburn DO Work Phone: [address] [address]Sgqhimenpu73-72-7287 10:12-0400Systolic blood pdysvbrg530 mm[Hg]Ashlee Blackburn Work Phone: [facility] CenterWdnegmewuh04-76-0114 10:50-0400Body .6 cmKar Yadav MD Work Phone: [facility] CenterEmyzhetbzr27-58-1645 10:50-0400Body mass index (BMI) [Ratio]28.41 kg/m2Kar Yadav MD Work Phone: 1(419)547-[address] [place], [place] [address]Sztcppmnqo43-78-2420 10:50-0400Body temperature 97.5 [degF]Kar Yadav MD Work Phone: [facility] CenterZvypyfryio03-53-7046 10:50-0400Body .83 kgKar Yadav MD Work Phone: [facility] CenterIkjojxcrjc95-59-7888 10:50-0400Diastolic blood aleaelkq25 mm[Hg]Kar Yadav MD Work Phone: 1(658)162-[address] [place], [place] [address]Dpobzcurri37-38-6984 10:50-0400Heart pary363 /min Kar Yadav MD Work Phone: [facility] CenterUvfxutazqv88-02-6726 10:50-0400Respiratory rate20 /minKar Yadav MD Work Phone: [facility] CenterZayxradnwy86-91-4194 10:50-2848NuQ8% (BldA) [Mass fraction]98 %Kar Yadav MD Work Phone: [facility] CenterGukrolmytz71-48-3175 10:50-0400Systolic blood fjfpaedq842 mm[Hg]Kar Yadav MD Work Phone: [facility] CenterUmmeuzgcwa52-44-8889 15:39-0500Body fquudc653.6 cmKar Yadav MD Work Phone: [facility] CenterIishwkpdhy28-86-9450 15:39-0500Body mass index (BMI) [Ratio]27.44 kg/m2Kar Yadav MD Work Phone: [facility] CenterZunyetqgrn86-80-8207 15:39-0500Body temperature 98.71 [degF]Kar Yadav MD Work Phone: [facility] CenterFkyqfoxrvs24-16-3155 15:39-0500Body xkyewf07.11 kgKar Yadav MD Work Phone: [facility] CenterOhdrwxbili95-16-0685 15:39-0500Diastolic blood ymjtpjba28 mm[Hg]Kar Yadav MD Work Phone: [facility] CenterIloamrqlvs00-46-5316 15:39-0500Heart hecm639 /min Kar Yadav MD Work Phone: [facility] Vqumqjqzjr59-82-7333 15:39-3572TgR6% (BldA) [Mass fraction]96 %Kar Yadav MD Work Phone: [facility] Oksjuaztvr93-39-2440 15:39-0500Systolic blood sfzexwhb252 mm[Hg]Kar Yadav MD Work Phone: [facility] Encounters Encounter DateEncounter TypeCare ProviderFacilityStart: 04-20-2025 End: 99-14-1708Usuyuev encounter statusWilldawson Blackburn DO Work Phone: noms HealthcareStart: 04-20-2025 End: 74-86-0885Chyeytpq preventive med est patient 40-64yrsWilliam Bakari Blackburn DO Work Phone: [facility] OBGYNComment on above:Encounter for gynecological examination without abnormal finding; Screening for malignant neoplasm of cervix; Breast cancer screening by mammogramStart: 04-20-2025 End: 10-65-3105mwyikbghmvEGLMCWN D BRUNERNot AvailableStart: 02-27-2025 End: 66-57-2228RvypoeYtmy Naderer MD Work Phone: [facility]oms CWM FMComment on above:Type 2 diabetes mellitus with hyperglycemia, without long-term current use of insulin (HCC)Start: 01-23-2025 End: 16-70-9855Rikkyn flowsheetKar Yadav MD Work Phone: [facility] CWM FMStart: 01-23-2025 End: 08-04-7515Aucwgb flowsheetKar Yadav MD Work Phone: [facility] CWM FMStart: 01-23-2025 End: 20-66-4184Ehlsqx outpatient visit 15 minutesKar Yadav MD Work Phone: [facility] CWM FMComment on above:Type 2 diabetes mellitus with hyperglycemia, without long-term current use of insulin (HCC) (Primary Dx); Benign essential hypertensionStart: 01-23-2025 End: 89-50-8536xumsvvltwcBIAL NADERERNot AvailableStart: 12-31-2024 End: 73-81-2308Hscnpi Markie Yadav MD Work Phone: NOXM CWM FMStart: 12-31-2024 End: 43-06-3580Cupoks Markie Yadav MD Work Phone: N[facility] CWM FMStart: 12-31-2024 End: 74-08-4782Mnwfbj outpatient visit 25 minutesKar Yadav MD Work Phone: [facility] CWM FMComment on above:Type 2 diabetes mellitus with hyperglycemia, without long-term current use of insulin (HCC) (Primary Dx); Benign essential hypertension ; HypokalemiaStart: 12-31-2024 End: 29-29-8827xvkhsmtiamTSWE NADERERNot AvailableStart: 11-20-2024 End: 53-95-3738dtfifwbbhiFVPP NADERERNot AvailableStart: 11-14-2024 End: 38-09-7030Onduvdope Result EncounterKar Yadav MD Work Phone: n[facility] External Department UnsolicitedStart: 11-14-2024 End: 89-06-8357Ctzaqrcwp Result EncounterKar Yadav MD Work Phone: [facility] External Department UnsolicitedStart: 10-09-2024 End: 64-42-4877Zuuuemejx Result Agustina Yadav MD Work Phone: [facility] External Department UnsolicitedStart: 10-09-2024 End: 09-80-5346Kcbcebubu Result Agustina Yadav MD Work Phone: [facility] External Department UnsolicitedStart: 10-09-2024 End: 64-90-8832Vbajpl OnlyKar Yadav MD Work Phone: [facility] CWM FMComment on above:Type 2 diabetes mellitus with hyperglycemia, without long-term current use of insulin (CMS/HCC) (Primary Dx)Dyslipidemia (CMS/HCC) (Primary Dx); Adult hypothyroidism (CMS/HCC)Elevated liver function tests (Primary Dx)Start: 10-07-2024 End: 71-62-3973Gxhxcw outpatient visit 25 minutesKar Yadav MD Work Phone: [facility] CWM FMComment on above:Benign essential hypertension (CMS/HCC) (Primary Dx); Adult hypothyroidism (CMS/HCC); Pre-diabetes; Annual physical exam; Motion sickness, initial encounterStart: 10-07-2024 End: 49-63-8926Yuptvfo encounter procedureKar Yadav MD Work Phone: noms HealthcareStart: 10-07-2024 End: 95-69-7065zozocimxubZWCB NADERERNot AvailableStart: 10-07-2024 End: 34-24-8353Dinoqh Markie Yadav MD Work Phone: [facility] CWM FMStart: 10-07-2024 End: 14-31-2148Qckafc Markie Yadav MD Work Phone: [facility] CWM FMStart: 04-15-2024 End: 94-01-0683Dvunxvm encounter statusWilldawson Blackburn DO Work Phone: noms HealthcareStart: 04-15-2024 End: 28-39-5656Wtgcvpsr preventive med est patient 40-64yrsWilliam Bakari Blackburn DO Work Phone: [facility] OBComment on above:Encounter for gynecological examination without abnormal finding (Primary Dx); Screening for malignant neoplasm of cervix; Breast cancer screening by mammogramStart: 04-04-2024 End: 21-42-6370Erjuxx Markie Yadav MD Work Phone: [facility] CWM FMStart: 04-04-2024 End: 35-17-0921Ouotiy Markie Yadav MD Work Phone: n[facility] CWRadha FMStart: 04-04-2024 End: 37-14-9011Iczprct encounter procedureKar Yadav MD Work Phone: [facility] Work Phone: Start: 04-04-2024 End: 69-24-1848Nvsmkldx preventive med est patient 40-64yrsMarc Leif SHI Work Phone: [facility] CWM FMComment on above:Annual physical exam (Primary Dx)Start: 08-07-2023 End: 34-51-3490Viuvmb outpatient visit 15 minutesKar Yadav MD Work Phone: [facility] CWM FMComment on above:Acute bronchitis due to other specified organisms (Primary Dx)Start: 00-68-5540Flcoln flowsheetKar Yadav MD Work Phone: [facility] CWM FMStart: 40-73-0399Exkeiu flowsheetKar Yadav MD Work Phone: [facility] CWM FMStart: 07-17-2023 End: 58-19-9997Akbddeaah Result EncounterKar Yadav MD Work Phone: [facility] External Department UnsolicitedStart: 07-17-2023 End: 03-53-7125Nhofvyajz Result EncounterKar Yadav MD Work Phone: [facility] External Department UnsolicitedStart: 05-16-2022 End: 66-23-1896wlhkrtsoxwSJ KAR SALMONRFacility:M4Vebld: 10-83-6734Felzbmfqt for general adult medical examination without abnormal findingsDR KAR YADAV [facility] Hospitaltart: 04-19-2022 End: 37-60-7591dgbewuotnwQO KAR SALMONRFacility:K7Spbng: 04-19-2022 End: 64-15-3864Jfgfjyllt for general adult medical examination without abnormal findingsDR KAR JOHNSONacility:H1 Procedures DateProcedureProcedure DetailPerforming ClinicianStart: 83-54-8521TU RIGHT UPPER QUADRANTKar Yadav MD Work Phone: start: 44-87-4527QRG CBC WITH AUTO DIFFKar Yadav MD Work Phone: Start: 43-62-7160PN TOMOSYNTHESIS SCREENING BIMarc Leif SHI Work Phone: Start: 31-68-4533NjhxofodepqKjgk Naderer MD Work Phone: Start: 33-64-2116Bmebxjecdtl observation [Identifier] in Cervix by Cyto stainKar Yadav MD Work Phone: Plan of Treatment DateCare ActivityDetailAuthorStart: 35-56-5095Mskuxslwj for malignant neoplasm of cervixNOMS HealthcareStart: 97-34-7334Iyndyvqxv for malignant neoplasm of cervixNOMS HealthcareStart: 04-10-3703Iocphbqcr for malignant neoplasm of cervix [facility] HealthcareStart: 95-98-2171Rukjxzhqg for malignant neoplasm of colonNOMS HealthcareStart: 04-26-2026 End: 46-57-4208Prgmmjr encounter /26/2026 11:00 AM EDT Office Visit NICHOLAS LUI [address] [place] [address] Ashlee Blackburn DO [address] [place] [address] NOMRamya CHRISGYNStart: 80-92-2893Tsvnropmc for malignant neoplasm of cervixPap SmearNOMS HealthcareStart: 04-28-2025 End: 79-59-7368Fqezdzm encounter tyahdqrsm87/28/2025 10:00 AM EDT Office Visit NOMRamya [facility] [address] [place] [address] Kar Yadav MD [address] [place] [address] [facility] FMStart: 04-20-2025 End: 53-93-1363Inmnacu encounter procedureNOMS SWS OBStart: 42-81-7900Vkvlctnhpj A1c measurementDiabetes: Hemoglobin Q5YOHEW HealthcareStart: 03-02-2025 Influenza vaccinationNONM HealthcareStart: 01-23-2025 End: 14-20-5765Qukdqwl encounter procedureNOMS GALLOWAY FMComment on above:Arrived Start: 12-31-2024 End: 67-96-1909Gzdkkjs encounter gboayfglb30/02/2025 11:15 AM EDT Office Visit [facility] [address] [place] [address] Kar aYdav MD [address] [place] [address] ArrivedNOMS GALLWOAY FMComment on above:ArrivedStart: 11-20-2024 End: 72-47-4760Yqlzmxu encounter huzlknqdf76/22/2025 11:15 AM EDT Office Visit [facility] [address] [place] [address] Kar Yadav MD [address] [place] [address] NOMRamya GALLOWAY FMStart: 10-09-2024 End: 04-58-4019Lrhshdieu 1996 panel - SerumHepatitis panel, acute Lab Routine Elevated liver function tests Expected: 10/09/2024 (Approximate), Expires: 10/09/2025[facility] CenterComment on above:Expected: 10/09/2024 (Approximate), Expires: 10/09/2025Start: 10-09-2024 End: 16-20-5135UY Abdomen limitedUS LIVER Imaging Routine Elevated liver function tests Expected: 10/09/2024, Expires: 10/09/2025[facility] Work Phone: Comment on above:Expected: 10/09/2024, Expires: 10/09/2025Start: 10-07-2024 End: 21-34-3984Mroipcp encounter /08/2025 2:15 PM EDT Office Visit [facility] [address] [place] [phone] Kar Yadav MD [address] [place] [address] [facility] FMComment on above:ArrivedStart: 10-07-2024 End: 32-93-5938Rhucb metabolic 1998 panel - Serum or PlasmaBasic metabolic panel Lab Routine Annual physical exam Expected: 10/07/2024 (Approximate), Expires: 10/07/2025NONM HealthcareComment on above:Expected: 10/07/2024 (Approximate), Expires: 10/07/2025Start: 10-07-2024 End: 77-67-1484JFQ W Auto Differential panel - BloodCBC and differential Lab Routine Annual physical exam Expected: 10/07/2024 (Approximate), Expires: 0 10/07/2025[facility] HealthcareComment on above:Expected: 10/07/2024 (Approximate), Expires: 10/07/2025Start: 10-07-2024 End: 74-20-4870Ygmakiynky A1c/Hemoglobin.total in BloodHemoglobin A1c Lab Routine Annual physical exam Expected: 10/07/2024 (Approximate), Expires: 10/07/2025[facility] Healthcare Work Phone: Comment on above:Expected: 10/07/2024 (Approximate), Expires: 10/07/2025Start: 10-07-2024 End: 15-99-0706Tpsqqrv function 2000 panel - Serum or PlasmaHepatic function panel Lab Routine Annual physical exam Expected: 10/07/2024 (Approximate), Expires: 10/07/2025[facility] HealthcareComment on above:Expected: 10/07/2024 (Approximate), Expires: 10/07/2025Start: 10-07-2024 End: 38-87-6553Ullrz 1996 panel - Serum or PlasmaLipid panel Lab Routine Annual physical exam Expected: 10/07/2024 (Approximate), Expires: 10/07/2025[facility] HealthcareComment on above:Expected: 10/07/2024 (Approximate), Expires: 10/07/2025Start: 10-07-2024 End: [id number] [Units/volume] in Serum or PlasmaTSH Lab Routine Annual physical exam Expected: 10/07/2024 (Approximate), Expires: 10/07/2025[facility] HealthcareComment on above:Expected: 10/07/2024 (Approximate), Expires: 10/07/2025Start: 10-07-2024 End: 17-73-2284Cbopvsrkk (T4) free [Mass/volume] in Serum or PlasmaT4, free Lab Routine Adult hypothyroidism (CMS/HCC) Expected: 10/07/2024 (Approximate), Expires: 10/07/2025[facility] HealthcareComment on above:Expected: 10/07/2024 (Approximate), Expires: 10/07/2025Start: 10-06-2024 End: [id number] encounter [email or web address]/07/2025 9:00 AM EDT [facility] [address] [place] [address] Kar Yadav MD [address] [place] [address] [facility] FMStart: 57-14-6756Dpjbbhxpt for malignant neoplasm of colon Colorectal Cancer ScreeningNOMS HealthcareComment on above:Postponed from 1972 (Patient Refused)Start: 49-44-8829Vuxvlbcae for malignant neoplasm of breastMammogramNOMS HealthcareStart: 04-15-2024 End: 92-76-7022Ghxnwsi encounter qesfbbkya00/15/2024 10:15 AM EDT Office Visit [facility] [address] [place] [address] Ashlee Blackburn DO [address] [place] [address] [facility] OBStart: 04-04-2024 End: 55-88-2539Ddrvwwm encounter iwnaydfru20/04/2024 10:45 AM EDT Office Visit [facility] [address] [place] [address] Kar Yadav MD [address] [place] [address] [facility] FMComment on above:ArrivedStart: 24-22-8623Shodexabl vaccinationInfluenza Vaccine (#1)[facility] HealthcareStart: 08-07-2023 End: 57-63-0784Valwodh encounter xcdezqxhz79/06/2024 3:45 PM EST Office Visit [facility] [address] [place] [address] Kar Yadav MD [address] [place] [address] [facility] FMComment on above:ArrivedStart: 94-92-9072Ldguvedac vaccinationInfluenza Vaccine (#1)[facility]Start: 36-18-3984Zjjcrfdqa for malignant neoplasm of cervixPap SmearOzarks Medical CenterStart: 61-43-9267Gccoi screening for proteinDiabetes: Urine Protein ScreeningOzarks Medical CenterStart: 29-16-5225Atnnczoa screeningDiabetes: Retinopathy ScreeningOzarks Medical CenterStart: 00-89-1784Vnmirrcivq A1c measurementDiabetes: Hemoglobin M6GKWZPOzarks Medical Center Start: 37-02-4905Egzxkjudt for malignant neoplasm of colonNONM HealthcareIGP, APT HPV,RFX 16/18,45IGP, APT HPV,RFX 16/18,45 Lab Routine Screening for malignant neoplasm of cervix Ordered: 04/15/2024[facility] Work Phone: comment on above:Ordered: 04/15/2024IGP, APT HPV,RFX 16/18,45IGP, APT HPV,RFX 16/18,45 Lab Routine Screening for malignant neoplasm of cervix Ordered: 04/20/2025[facility] Work Phone: Comment on above:Ordered: 04/20/2025 Payers DatePayer CategoryPayerPolicy [id number] Cross Blue ShieldBCBS [id number] BCBS [id number] 2021-Present [phone] [address] [place] [address] [id number] [id number] [id number] 2.0.1.735530.3.57[id number] 2.0.1.356149.3.57[id number] 2.160.1.662819.3.57[id number] 2.160.1.845591.3.57[id number] 2.840.1.088377.3.579.[id number] Social History DateTypeDetailFacilityStart: 98-19-3566Mknefmv smoking status NHISNever smoked tobaccoNOMS HealthcareStart: 84-08-7125Auwcqgr use and exposureSmokeless tobacco non-userNOMS HealthcareStart: 04-17-2023 End: 06-86-1863Lkckabc intakeEx-drinker (finding)[facility] HealthcareStart: 08-07-2023 End: 16-97-6011Ovwkmlx of Social functionNOMS HealthcareStart: 08-07-2023 End: 12-71-3965Fzkliqbfrhk, Afraid, Rape, and Kick questionnaire [HARK][facility] HealthcareWithin the last year, have you been afraid of your partner or ex-partner?NoNOMS HealthcareDo you belong to any clubs or organizations such as yazidism groups, [employer], [employer] or athletic groups, or school groups?YesNOMS HealthcareAre you now , , , , never or living with a partner?DivorcedNOMS HealthcareHow often to you have a drink containing alcohol?NeverNOMS HealthcareStart: 12-76-8795Ths many standard drinks containing alcohol do you have on a typical day?Patient does not drinkNOMS HealthcareDo you feel stress - tense, restless, nervous, or anxious, or unable to sleep at night because yourmind is troubled all the time - these days [OSQ] Not at allNONM Healthcare(I/We) worried whether (my/our) food would run out before (I/we) got money to buy more.Never trueNONM HealthcareStart: 1970 Sex Assigned At BirthNot on fileNOMS HealthcareDo you feel stress - tense, restless, nervous, or anxious, or unable to sleep at night because yourmind is troubled all the time - these days [OSQ]Only a littleNONM Healthcare Medical Equipment Procedure CodeEquipment CodeEquipment Original TextEquipment IdentifierDates1 each by In Vitro route in the morning and 1 each in the evening and 1 each before bedtime.[id number]: 12-31-2024 Functional Status ZzagEtqaqdfsldXqkmrfAonjenyt52-64-3401Natww score [AUDIT-C]0 04/20/2025 11:20 AM EDT Theresa Mendiola MARQUISE Wztwvyzctd42-63-0519Aasslqg Health Questionnaire 2 item (PHQ-2) [Reported][facility] Medical CenterQguaaetihi13-03-6742Zgkejiv Health Questionnaire 2 item (PHQ-2) [Reported][facility] Clinical Notes 08-07-2023 to 04-20-2025 Note Date & TzuiRqyqXxshgqou02-15-8827 History of Present illness Narrative* Kaycee Spicer MA - 04/20/2025 11:15 AM EDT Images from the original note were not included. Ashlee Blackburn, DO Obstetrics and Gynecology Wendie Hubbard 1970 04/20/25 [id number] Yearly Wellness Exam Chief Complaint Patient presents with Gynecologic Exam LMP: 2020 HRT: none Last pap 04-15-24 neg. Last mammogram 07-16-23 [facility] by PCP- plans to ask for order next week. Denies breast, urinary, or bowel concerns. Visit Vitals BP 124/78 Ht 5' 6 Wt 126 lb BMI 20.34 kg/m OB Status Postmenopausal Smoking Status Never BSA 1.63 m OB History Para Term AB Living 4 4 4 SAB IAB Ectopic Multiple Live Births 4 # Outcome Date GA Lbr [place]/2nd Weight Sex Type Anes PTL Lv 4 Para Vag-Spont PIYUSH 3 Para Vag-Spont PIYUSH 2 Para Vag-Spont PIYUSH 1 Para Vag-Spont PIYUSH Obstetric Comments Heaviest weighed 7 lbs 15 oz Current Outpatient Medications Medication Sig Dispense Refill atorvastatin (Lipitor) 40 MG tablet Take 1 tablet (40 mg) by mouth at bedtime 30 tablet 5 Glucose Blood (Blood Glucose Test Strips 333) strip 1 each by In Vitro route in the morning and 1 each in the evening and 1 each before bedtime. 100 strip 11 hydroCHLOROthiazide (HYDRODiuril) 25 MG tablet TAKE 1 TABLET BY MOUTH EVERY DAY 90 tablet 2 levothyroxine (Synthroid, Levoxyl) 75 MCG tablet Take 1 tablet (75 mcg) by mouth Daily 90 tablet 3 metFORMIN XR (Glucophage-XR) 500 MG 24 hr tablet Take 1 tablet (500 mg) by mouth in the morning and1 tablet (500 mg) before bedtime. Do not crush, chew, or split. 60 tablet 5 potassium chloride CR (K-Tab) 20 MEQ ER tablet TAKE 1 TABLET (20 MEQ) BY MOUTH DAILY DO NOT CRUSH, CHEW, OR SPLIT. 90 tablet 2 Tirzepatide (Mounjaro) 5 MG/0.5ML solution auto-injector INJECT 5 MG UNDER THE SKIN ONE TIME PER WEEK 0.5 mL 3 No current facility-administered medications for this visit. Allergies[1] Surgical History[2] Medical History[3] ROS Const: Denies appetite change, fever, chills. [...] palpable bilaterally, normal nipples bilaterally - everted - fatty replaced - dense - well supported- axilla negative. ABDOMEN: soft, nontender, nondistended, no masses palpable. BACK: no costovertebral angle tenderness, no obvious scoliosis/kyphosis. FEMALE GENITOURINARY:imitation marble mechanic in room -mild atrophic mucosa, multip, cervix without lesion, normalAF uterus left of midline, adnexa negative - cul-de-sac negative, Gr. 1 pelvic prolapse. . RECTAL:normal tone , no masses palpable , only small external hemorrhoids. EXTREMITIES no edema. NEUROLOGIC: alert and oriented. PSYCH: cooperative with exam. ICD-10-CM 1. Encounter for gynecological examination without abnormal finding Z01.419 Pelvic and breast exam completed. Findings of today's exam discussed with the patient. Continue MSBE. Ca/Vit D recommendations reviewed with the patient. The patient is to contact the office with anychanges to her gynecological condition or any changes with breast or bleeding. The patient is to return in 1 year or as needed 2. Screening for malignant neoplasm of cervix Z12.4 IGP, APT HPV,RFX 16/18,45 Thinprep collected. Will notify patient if results are abnormal. 3. Breast cancer screening by mammogram Z12.31 Ordered by PCP Discussed her diabetic management. Following Dr. Yadav on Monjaro. Entered by Kaycee Spicer MA acting as scribe for Dr. Ashlee Blackburn. Signature Kaycee Spicer MA Date 04/20/25 . Time 11:25 AM . The documentation recorded by the scribe accurately reflectsthe service(s) I personally performed and the decisions I made. Signature Hailey Blackburn D.O. Date 04/20/25 Time 5:00PM. [1] No Known Allergies [2] Past Surgical History: Procedure Laterality Date TUBAL LIGATION 2010 VAGINAL DELIVERY x4 [3] Past Medical History: Diagnosis Date Acid reflux Diabetes mellitus (HCC) Hypertension Hypothyroidism Seasonal allergies Varicella zoster documented in this encounterOzarks Medical CenterEsttfzxtcc62-50-1538 History of Present illness Narrative* Kar Yadav MD - 01/23/2025 9:24 AM EDTAssociated Problem(s): Type 2 diabetes mellitus with hyperglycemia, without long-term current use of insulin (HCC) BS starting to drop and stop glipizide. Eat regularly and increase mounjaro. * Kar Yadav MD - 01/23/2025 9:24 AM EDTAssociated Problem(s): Benign essential hypertension BP controlled and monitor PRN. * Kar Yadav MD - 01/23/2025 9:00 AM EDT Images from the original note were not included. Subjective Patient ID: Wendie Hubbard is a 54 y.o. female who presents for Follow-up (2M F/U/MANAGING SUGAR). Follow up DM and HTN. Patient much improved. Last visit increased metformin to BID and added glipizide and mounjaro. BS much improved and actually starting to go low. BS ranges 55-112 over past week in am and averages around 100. Changed diet and tries to limit carbs. Denies signs of elevated BS such as polyuria, polyphagia or polydipsia. Checking BP PRN and typically controlled. BP normal today.Taking medication daily and tolerating without side effects. Weight down 18 pounds in past 2 months. Review of Systems Respiratory: Negative for cough, [...] Items Addressed This Visit Benign essential hypertension BP controlled and monitor PRN. Type 2 diabetes mellitus with hyperglycemia, without long-term current use of insulin (HCC) - Primary BS starting to drop and stop glipizide. Eat regularly and increase mounjaro. Relevant Medications Tirzepatide (Mounjaro) 5 MG/0.5ML solution auto-injector documented in this encounterOzarks Medical CenterZlbkcdfwzi32-01-9483 History of Present illness Narrative* Kar Yadav MD - 12/31/2024 12:19 PM EDTAssociated Problem(s): Type 2 diabetes mellitus with hyperglycemia, without long-term current use of insulin (HCC) BS very elevated and A1C run in office 14.6. Continue metformin BID and add glipizide and mounjaro.Check BS TID due to elevated BS. Stick to ADA diet and limit carbs. Will order labs next visit and check C-peptide to assess if patient making insulin. * Kar Yadav MD - 12/31/2024 11:15 AM EDT Images from the original note were not included. Subjective Patient ID: Wendie Hubbard is a 54 y.o. female who presents for Follow-up (Blood sugars running very high). ER follow up from 12/29 for elevated BS. Recently diagnosed with diabetes and started metformin in October. A1C 10/09 was 7.1. Over past few weeks BS elevated. BS often over 300 then over past week meter read high which is over 700. Increased metformin to BID but no change readings. Developed signs of elevated blood sugar and thirsty all the time with increased urination. Weight down 15 pounds. Trying to change diet and limit carbs. Review of Systems Respiratory: Negative for cough, [...] Items Addressed This Visit Benign essential hypertension Type 2 diabetes mellitus with hyperglycemia, without long-term current use of insulin (HCC) - Primary BS very elevated and A1C run in office 14.6. Continue metformin BID and add glipizide and mounjaro.Check BS TID due to elevated BS. Stick to ADA diet and limit carbs. Will order labs next visit and check C-peptide to assess if patient making insulin. Relevant Medications metFORMIN XR (Glucophage-XR) 500 MG 24 hr tablet glipiZIDE (Glucotrol) 10 MG tablet Tirzepatide (Mounjaro) 2.5 MG/0.5ML solution auto-injector Glucose Blood (Blood Glucose Test Strips 333) strip Hypokalemia Relevant Medications potassium chloride CR (K-Tab) 20 MEQ ER tablet documented in this encounterOzarks Medical CenterEfvtoznelu05-07-6280 History of Present illness Narrative* Kar Yadav MD - 10/07/2024 3:12 PM EDTAssociated Problem(s): Pre-diabetes Check labs. Start ozempic. * Kar Yadav MD - 10/07/2024 3:12 PM EDTAssociated Problem(s): Benign essential hypertension (CMS/HCC) BP again elevated and start treatment for HTN with hydrochlorothiazide. Discussed DASH diet. * Kar Yadav MD - 10/07/2024 3:12 PM EDTAssociated Problem(s): Adult hypothyroidism (CMS/HCC) No signs of low thyroid and check labs. * Kar Yadav MD - 10/07/2024 2:15 PM EDT Images from the original note were not [...] patch 72 hour patch documented in this encounterOzarks Medical CenterCfsfpjosby54-41-7507 History of Present illness Narrative* Kaycee Spicer MA - 04/15/2024 10:15 AM EDT Images from the original note were not included. Ashlee Blackburn, DO Obstetrics and Gynecology Wendie Hubbard 1970 04/15/24 [id number] Yearly Wellness Exam Chief Complaint Patient presents [...] Medical History: Diagnosis Date Acid reflux Hypothyroidism (CMS/HCC) 2020 x5 Seasonal allergies Varicella zoster ROS [...] palpable bilaterally, normal nipples bilaterally - everted - finely cystic - dense- well supported- axilla negative. ABDOMEN: soft, nontender, nondistended, no masses palpable. BACK: no costovertebral angle tenderness, no obvious scoliosis/kyphosis. FEMALE GENITOURINARY:imitation marble mechanic in room -normal vaginal mucosa, multip, cervix [...] patient is to contact the office with anychanges to her gynecological condition or any changes [...] MA acting as scribe for Dr. Ashlee Blackburn. Signature Kaycee Spicer MA Date 04/15/24 . Time 10:34 AM . The documentation recorded by the scribe accurately reflectsthe service(s) I personally performed and the decisions I made. Signature Hailey Blackburn D.O. Date 04/15/24 Time 5:00PM. documented in this encounterOzarks Medical CenterZjxoxiqdmd76-35-3858 History of Present illness Narrative* Kar Yadav MD - 04/04/2024 11:42 AM EDTAssociated Problem(s): Annual physical exam Due for labs. Cologuard normal May 2023. Discussed proper diet and regular aerobic exercise. Need aerobic exercise 5-6 days a week for 30 minutes at a time. Smaller portions and limit total calories. Tetanus every 10 years. Advised not to smoke. * Kar Yadav MD - 04/04/2024 10:45 AM EDT Images from the original note were not [...] Advised not to smoke. documented in this encounterOzarks Medical CenterAhcoozcaje03-41-0702 History of Present illness Narrative* Kar Yadav MD - 08/07/2023 3:59 PM ESTAssociated Problem(s): Acute bronchitis due to other specified [...] if no better or worse callfor re-evaluation. * Kar Yadav MD - 08/07/2023 3:45 PM EST Subjective Patient ID: Wendie Hubbard is a [...] if no better or worse callfor re-evaluation. Relevant Medications levoFLOXacin (Levaquin) 750 MG tablet predniSONE (Deltasone) 50 MG tablet guaiFENesin-codeine (Robitussin-AC) 100-10 MG/5ML syrup documented in this encounterNOMS HealthcareEvaluation note* Diagnosis Acute bronchitis due to other specified [...] blood chemistry documented in this encounter [facility] HealthcareEvaluation note* Diagnosis Annual physical exam- Primary Routine general medical examination at a [facility] Benign essential hypertension- Primary Essential hypertension, benign Adult hypothyroidism Unspecified hypothyroidism Pre-diabetes Other abnormal glucose Annual physical exam Routine general medical examination at a [facility] Motion sickness, initial encounter Type 2 diabetes mellitus with hyperglycemia, without long-term current use of insulin (HCC)- Primary Benign essential hypertension Essential hypertension, benign Nonalcoholic fatty liver disease Dyslipidemia Other and unspecified hyperlipidemia Adult hypothyroidism Unspecified hypothyroidism Type 2 diabetes mellitus with other specified complication (HCC) Type 2 diabetes mellitus with hyperglycemia, without long-term current use of insulin (HCC)- Primary Benign essential hypertension Essential hypertension, benign Hypokalemia Hypopotassemia documented in this encounter [facility] HealthcareEvaluation note* Diagnosis Annual physical exam- Primary Routine general medical examination at a [facility] Benign essential hypertension- Primary Essential hypertension, benign Adult hypothyroidism Unspecified hypothyroidism Pre-diabetes Other abnormal glucose Annual physical exam Routine general medical examination at a [facility] Motion sickness, initial encounter Type 2 diabetes mellitus with hyperglycemia, without long-term current use of insulin (HCC)- Primary Benign essential hypertension Essential hypertension, benign Nonalcoholic fatty liver disease Dyslipidemia Other and unspecified hyperlipidemia Adult hypothyroidism Unspecified hypothyroidism Type 2 diabetes mellitus with other specified complication (HCC) Type 2 diabetes mellitus with hyperglycemia, without long-term current use of insulin (HCC)- Primary Benign essential hypertension Essential hypertension, benign Hypokalemia Hypopotassemia Type 2 diabetes mellitus with hyperglycemia, without long-term current use of insulin (HCC)- Primary Benign essential hypertension Essential hypertension, benign documented in this encounter [facility]Evaluation [facility]* Diagnosis Annual physical exam- Primary Routine general medical examination at a [facility] Benign essential hypertension- Primary Essential hypertension, benign Adult hypothyroidism Unspecified hypothyroidism Pre-diabetes Other abnormal glucose Annual physical exam Routine general medical examination at a [facility] Motion sickness, initial encounter Type 2 diabetes mellitus with hyperglycemia, without long-term current use of insulin (HCC)- Primary Benign essential hypertension Essential hypertension, benign Nonalcoholic fatty liver disease Dyslipidemia Other and unspecified hyperlipidemia Adult hypothyroidism Unspecified hypothyroidism Type 2 diabetes mellitus with other specified complication (HCC) Type 2 diabetes mellitus with hyperglycemia, without long-term current use of insulin (HCC)- Primary Benign essential hypertension Essential hypertension, benign Hypokalemia Hypopotassemia Type 2 diabetes mellitus with hyperglycemia, without long-term current use of insulin (HCC)- Primary Benign essential hypertension Essential hypertension, benign Type 2 diabetes mellitus with hyperglycemia, without long-term current use of insulin (HCC) documented in this encounter [facility] HealthcareEvaluation note* Diagnosis Benign essential hypertension- Primary Essential hypertension, benign Adult hypothyroidism Unspecified hypothyroidism Pre-diabetes Other abnormal glucose Annual physical exam Routine general medical examination at a health care facility Motion sickness, initial encounter Type 2 diabetes mellitus with hyperglycemia, without long-term current use of insulin (HCC)- Primary Benign essential hypertension Essential hypertension, benign Nonalcoholic fatty liver disease Dyslipidemia Other and unspecified hyperlipidemia Adult hypothyroidism Unspecified hypothyroidism Type 2 diabetes mellitus with other specified complication (HCC) Type 2 diabetes mellitus with hyperglycemia, without long-term current use of insulin (HCC)- Primary Benign essential hypertension Essential hypertension, benign Hypokalemia Hypopotassemia Type 2 diabetes mellitus with hyperglycemia, without long-term current use of insulin (HCC)- Primary Benign essential hypertension Essential hypertension, benign Encounter for gynecological examination without abnormal finding Screening for malignant neoplasm of cervix Screening for malignant neoplasm of the cervix Breast cancer screening by mammogram documented in this encounter [facility] Healthcare Summary Purpose Family History No Family History Records FoundNo Family History Records Found Advance Directives No Advanced Directives Records FoundNo Advanced Directives Records Found Additional Source Comments INFORMATION SOURCE (unrecogn ized section and content) DATE CREATED AUTHOR 05/20/[address] [facility] DATE CREATED AUTHOR AUTHOR'S ORGANIZ ATION 04/21/2025 [facility] EPIC Care Teams (unrecognized sec tion and content) Team MemberRelationshipSpecialtyStart DateEnd Date Kar Yadav MD PCP - Dnjtfak57/3/23 Kar Yadav MD [address] [place] [address] PCP - [facility]07/02/23Team MemberRelationshipSpecialtyStart DateEnd Date Kar Yadav MD [address] [place] [address] PCP - [facility] [employer]07/02/23 Kar Yadav MD [address] [place] [address] PCP - GeneralFamily Medicine08/07/23Team MemberRelationshipSpecialtyStart DateEnd Date Kar Yadav MD [address] [place] [address] PCP - [facility] Tsjcdvwlwl48/1/23 Kar Yadav MD [address] [place] [address] PCP - Generalmily Medicine08/07/23Team MemberRelationshipSpecialtyStart DateEnd Date Kar Yadav MD [address] [place] [address] PCP - [facility] Bxwmiihfli34/1/23 Kar Yadav MD [address] [place] [address] PCP - Generalmily Medicine08/07/23Team MemberRelationshipSpecialtyStart DateEnd Date Kar Yadav MD [address] [place] [address] PCP - [facility] Hejrkumukh10/1/23 Kar Yadav MD [address] [place] [address] PCP - GeneralFamily Medicine08/07/23Team MemberRelationshipSpecialtyStart DateEnd Date Kar Yadav MD [address] [place] [address] PCP - [facility] Vcbiouaawt74/1/23 Kar Yadav MD [address] [place] [address] PCP - GeneralFamily Medicine08/07/23Team MemberRelationshipSpecialtyStart DateEnd Date Kar Yadav MD [address] [place] [address] PCP - [facility] Wfqqqkovwq91/1/23 Kar Yadav MD [address] [place] [address] PCP - [facility] Medicine08/07/23Team MemberRelationshipSpecialtyStart DateEnd Date Kar Yadav MD [address] [place] [address] PCP - [facility] Lnmpuedyxd71/1/23 Kar Yadav MD [address] [place] [address] PCP - Generalmily Medicine08/07/23Team MemberRelationshipSpecialtyStart DateEnd Date Kar Yadav MD [address] [place] [address] PCP - [facility] Ojavhfigjf84/1/23 Kar Yadav MD [address] [place] [address] PCP - GeneralFamily Medicine08/07/23Team MemberRelationshipSpecialtyStart DateEnd Date Kar Yadav MD [address] [place] [address] PCP - [facility] Uehqfcutkt21/1/23 Kar Yadav MD [address] [place] [address] PCP - GeneralFamily Medicine08/07/23Team MemberRelationshipSpecialtyStart DateEnd Date Kar Yadav MD [address] [place] [address] PCP - GeneralFamily Medicine08/07/23Team MemberRelationshipSpecialtyStart DateEnd Date Kar Yadav MD [address] [place] [address] PCP - GeneralFamily Medicine08/07/23Team MemberRelationshipSpecialtyStart DateEnd Date Kar Yadav MD [address] [place] [address] PCP - GeneralFamily Medicine08/07/23Team MemberRelationshipSpecialtyStart DateEnd Date Kar Yadav MD [address] [place] [address] PCP - GeneralFamily Medicine08/07/23Team MemberRelationshipSpecialtyStart DateEnd Date Kar Yadav MD [address] [place] [address] PCP - [facility]08/07/23Team MemberRelationshipSpecialtyStart DateEnd Date Kar Yadav MD [address] [place] [address] PCP - [facility]08/07/23Team MemberRelationshipSpecialtyStart DateEnd Date Kar Yadav MD PCP - [facility]08/07/23Team MemberRelationshipSpecialtyStart DateEnd Date Kar Yadav MD PCP - Qzllqss69/3/232 Kar Yadav MD [address] [place] [address] PCP - [facility] Augjjwtyip92/1/234 Kar Yadav MD [address] [place] [address] PCP - [facility]08/07/23 Reason for Visit (unrecogniz ed section and content) ReasonCommentsCoughReasonCommentsAnnual ExamwellnessReasonCommentsGynecologic ExamLMP: 2020HRT: noneLast pap 04-10-23 neg.Last mammogram 07-16-23 [facility] - PCP ordersDenies breast, urinary, or bowel concerns.ReasonCommentsFollow-up6 MReason CommentsFollow-upBlood sugars running very highReasonCommentsFollow-up2M F/UMANAGING SUGARReasonOnset DateCommentsMed Cvdjgj7102/27/2025ReasonComments Gynecologic ExamLMP: 2020HRT: noneLast pap 04-15-24 neg.Last mammogram 07-16-23 [facility] by PCP- plans to ask for order next week. Denies breast, urinary, or bowel concerns. FOR RECORDS PERTAINING TO PATIENTS WHO ARE [...] BE BASED ON THE PRIMARY CLINICAL RECORDS. [facility] [employer] [facility]. provides no warranty or guarantee of the accuracy or completeness of information in this document.
[2025-05-05 09:23] LABS: Microalbum Creatinine Ratio Ur 11.0 mg/g (0.0-29.9)
[2025-05-05 09:47] LABS: Chloride 102 mmol/L (98-107); Potassium 3.6 mmol/L (3.5-5.1); Sodium 136 mmol/L (136-145)
[2025-05-05 09:48] LABS: Alanine Aminotransferase 33 U/L (14-59); Albumin Globulin Ratio 0.9; Albumin Level 3.7 g/dL (3.4-5.0); Alkaline Phosphatase 69 U/L (46-116); Anion Gap 10.7; Aspartate Amino Transferase 18 U/L (15-37); Blood Urea Nitrogen 16.0 mg/dL (7.0-18.0); Calcium 9.4 mg/dL (8.5-10.1); Carbon Dioxide 26.9 mmol/L (21.0-32.0); Cholesterol 232 mg/dL (<=200); Estimated GFR (African America >60 (>=60 mL/min/1.73m^2); Estimated GFR (Non-African Ame 53 (>=60 mL/min/1.73m^2); Globulin 4.2 g/dL; Glucose 94 mg/dL (74-106); Total Protein 7.9 g/dL (6.4-8.2); Triglycerides 102 mg/dL (<=150); VLDL CHOLESTEROL 20.4 mg/dL
[2025-05-05 09:49] LABS: HDL Cholesterol 58 mg/dL (40-60); Thyroid Stimulating Hormone <0.007 uIU/mL (0.358-3.740)
== END 2025-05-05 08:44 | disposition home or self-care (01) ==
LOC: LAB 08:44
PROVIDERS: PCP Family Medicine; Visit Provider Family Medicine
DX: E03.9 Hypothyroidism, unspecified (principal); E11.65 Type 2 diabetes mellitus with hyperglycemia; E78.5 Hyperlipidemia, unspecified; Z79.899 Other long term (current) drug therapy
CPT/HCPCS: 36415; 80053; 80061; 82043; 82570; 83036; 84439; 84443

== ENCOUNTER 2025-05-11 13:05 | Outpatient (OUT) | payer BC, SELFPAY ==
--- NOTE | 2025-05-11 13:07 | MM_ITS ---
Patient Name: KRISTINA ESPOSITO MR#: [id number] : 1970 Exam Date: 05/11/2025 Ordering Doctor: DR ANTOINETTE YADAV . RADIOLOGY REPORT PROCEDURE: MM TOMOSYNTHESIS SCREENING BI COMPARISON: MM TOMOSYNTHESIS SCREENING BI, 07/16/2023. MG MAMM SCREEN 3D URSULA CAD, 05/16/2022. MG MAMM SCREEN URSULA W CAD, 08/29/2019. INDICATIONS: Screening for malignant neoplasm Calculator Name NCI Breast Cancer Risk Assessment Tool 5 Year Breast Cancer Risk 0.60% Lifetime Breast Cancer Risk 5.00% Personal Breast Cancer No Personal Ovarian Cancer No Treatments None Family Cancers Grandmother-paternal with skin cancer at age ~60. LOCATION: [facility] BREAST COMPOSITION: The breasts are heterogeneously dense, which may obscure small masses. FINDINGS: RIGHT BREAST: No significant suspicious finding. LEFT BREAST: No significant suspicious finding. DIAGNOSTIC CATEGORY 1--NEGATIVE. NO CHANGE FROM COMPARISON ASSESSMENT. RECOMMENDATIONS: ROUTINE MAMMOGRAM AND CLINICAL EVALUATION IN 12 MONTHS. Dictated by: Denzel Christianson MD on 05/11/2025 at 14:25 Approved by: Denzel Christianson MD on 05/11/2025 at 14:26
--- OUTSIDE RECORDS SUMMARY | 2025-05-11 13:07 | XMS_ITS | Encounter Summary ---
Author Organization [facility] Address [address] [place] [address] Care Team Providers Care Motion Study Engineer Name Role Phone Kar Myles MD Primary Care Provider [phone] Kar Myles MD Unavailable Kar Myles MD Primary Care Provider [phone] Encounter Details DateTypeDepartmentCare Team (Latest Contact Info)Jknbabnrzyx59/16/2024Clinisync Result Encounter [facility] External Department Unsolicited Kar Myles MD [address] [place] [phone] Social History Tobacco UseTypesPacks/DayYears UsedDateSmoking Tobacco: NeverSmokeless [...] relatives?Once a week10/02/2024How often do you attend congregational or adventist services?Never 10/02/2024Do you belong to any clubs or organizations such as congregational groups, unions, fraCyberSponse or athletic groups, or school groups?No10/02/2024How often do you attend meetings of the clubs or organizations you belong to?Patient declined 10/02/2024re you , , , , never , or living with a partner?Pdyfmclx05/03/2025Overall Financial Resource Strain (CARDIA)AnswerDate RecordedHow hard is it for you to pay for the very basics like food, housing, medical care, and heating?Not hard at all10/02/2024PHQ-2 AnswerDate RecordedPatient Health Questionnaire-2 Ysrpg035Finintermountain healthcare [place] of Occupational Health - Occupational Stress QuestionnaireAnswerDate RecordedDo you feel stress - tense, restless, nervous, or anxious, or unable to sleep at night because yourmind is troubled all the time - these days?Only a hslfrt7110/02/2024Exercise Vital SignAnswerDate RecordedOn average, how many days [...] were you homeless or living in a fpc (including now)?No10/02/2024 AUDIT-CAnswerDate RecordedQ1: How often do you have a drink containing alcohol? Never04/20/2025Q2: How many drinks containing alcohol do you have on a typical day when you are drinking?Patient does not drink04/20/2025Q3: How often do you have six or more drinks on one occasion?Never04/20/2025CommentsNoSex and Gender InformationValueDate RecordedSex Assigned at BirthNot on fileLegal Sex Cqxddj1509/13/2022 7:03 PM EDTGender IdentityNot on fileSexual OrientationNot on filedocumented as of this encounter Functional Status * AUDIT-C ScoreAnswerDate of InxlherttsYqpjya312/20/2025 11:20 AM Theresa Headley MA * QuestionAnswerDate [...] 11:20 AM Theresa Headley MAPatient Health Questionnaire-2 Icymk312 11:20 AM Theresa Headley MA documented as of this encounter Plan of Treatment DateTypeDepartmentCare Team (Latest Contact Info)Dkpteogzzsw93/26/2026 11:00 AM EDTOffice Visit [facility] [place] [facility] [address] [place] [address] Srini Velazco, [address] [place] [address] documented as of this encounter Procedures Procedure NamePriorityDate/TimeAssociated DiagnosisCommentsMM TOMOSYNTHESIS SCREENING BI07/17/2023 8:24 AM EST documented in this encounter Results * MM TOMOSYNTHESIS SCREENING BI (07/17/2023 8:24 AM EST)Anatomical Region LateralityModalityOtherSpecimen (Source)Anatomical Location / Laterality Collection Method / VolumeCollection TimeReceived Time07/17/2023 8:24 AM EST Narrative 07/17/2023 8:25 AM EST [facility] ?[address] ? [place] [address] ? Mammography Report ? Signed ? Patient: WENDIE HUBBARD ?MR#: [id number] ?? : 1970 ?Acct:[id number] ?? Age/Sex: 52 / F ?ADM Date: 01/15/24 ?? Loc: MAMMO ? Attending Dr: Kar Myles M.D. ? Ordering Physician: Kar Myles M.D. ?Results: ? Date of Service: 07/16/23 ?Follow Up: ? Procedure(s): MM tomosynthesis screening BI ?? Accession Number(s): [id number] ? cc: Kar Myles M.D. ? Patient Name: ? WENDIE HUBBARD ? MR#: [id number] ? : 1970 ? Exam Date: 07/16/2023 [...] at age ??62. ? LOCATION: ? [facility] ? BREAST COMPOSITION: ? Heterogeneously dense,which may [...] 0825 ? DD/ 0824 ? TD/TT: ? Duct Layer: Procedure Note Radiology, Radiologist, - 07/17/2023 [place] [address] Mammography Report Signed Patient: WENDIE HUBBARD JMR#: [id number] : 1970Acct:[id number] Age/Sex: 52 / FADM Date: 07/16/23 Loc: MAMMO Attending Dr: Kar Myles M.D. Ordering Physician: Kar Myles M.D.Results: Date of Service: 07/16/23Follow Up: Procedure(s): MM tomosynthesis screening BI Accession Number(s): [id number] cc: Kar Myles M.D. Patient Name: WENDIE HUBBARD MR#: [id number] : 1970 Exam Date: 07/16/2023 Ordering Doctor: [...] skin cancer at age 62. LOCATION: [facility] BREAST COMPOSITION: Heterogeneously dense,which may [...] Lomax M.D. Signed By:07/17/23824 DD/ 3 TD/TT: Duct Layer: Authorizing ProviderResult TypeResult StatusMarc Naderer MDCLINISYNC IMAGING Final Result documented in this encounter Visit Diagnoses Not on filedocumented in this encounter Care Teams Team MemberRelationshipSpecialtyStart DateEnd Date Kar Myles MD PCP - Jxccxiq88/3/232 Kar Myles MD [address] [place] [phone] PCP - Angwin Sprgfzejqy99/1/234 Kar Myles MD [address] [place] [phone] PCP - GeneralFahaverhill pav[facility] Medicine08/07/23documented as of this encounter
--- OUTSIDE RECORDS SUMMARY | 2025-05-11 13:07 | XMS_ITS | Clinical Summary ---
Author Organization [facility] Address [address] [place] [address] Care Team Providers Care Barker Peeler Name Role Phone Kar Myles MD Primary Care Provider [phone] Allergies No known active allergies Medications MedicationSigDispense QuantityRefillsLast FilledStart DateEnd DateStatus levothyroxine (Synthroid, Levoxyl) 75 MCG tablet Indications:Adult hypothyroidismTake 1 tablet (75 mcg) by mouth Daily 90 tablet 3045Active atorvastatin (Lipitor) 40 MG tablet Indications:DyslipidemiaTake 1 tablet (40 mg) by mouth at bedtime 30 tablet 5Active hydroCHLOROthiazide (HYDRODiuril) 25 MG tablet Indications:Benign essential hypertensionTAKE 1 TABLET BY MOUTH EVERY DAY 90 tablet 5Active Glucose Blood (Blood Glucose Test Strips 333) strip Indications:Type 2 diabetes mellitus with hyperglycemia, without long-term current use of insulin ([facility])1 each by In Vitro route in [...] hyperglycemia, without long-term current use of insulin ([facility])INJECT 5 MG UNDER THE SKIN ONE TIME PER WEEK 0.5 mL 5Active metFORMIN XR (Glucophage-XR) 500 MG 24 hr tablet Indications:Type 2 diabetes mellitus with hyperglycemia, without long-term current use of insulin ([facility])Take 1 tablet (500 mg) by mouth in the morning and 1 tablet (500 mg) before bedtime. Do not crush, chew, or split. 60 tablet 505Active Active Problems ProblemNoted DateDiagnosed JrajCbvjfxciayv04/02/2025Nonalcoholic fatty liver zjcfarm1710/09/2024 Assessment & Plan (11/20/2024 11:38 AM EDT): Repeat labs. Would benefit from GLP-1. Benign essential wdiqdcpxosrs73/06/2024 Assessment & Plan (01/23/2025 9:24 AM EDT): BP controlled and monitor PRN. Assessment & Plan (11/20/2024 11:38 AM EDT): BP controlled and monitor PRN. Assessment & Plan (10/07/2024 3:12 PM EDT): BP again elevated and start treatment for HTN with hydrochlorothiazide. Discussed DASH diet. Ruqahjyvmtxz16/06/2024 Assessment & Plan (11/20/2024 11:38 AM EDT): Continue lipitor and repeat labs. Adult buvnrqvvuqdtqy47/06/2024 Assessment & Plan (11/20/2024 11:37 AM EDT): Repeat labs. Assessment & Plan (10/07/2024 3:12 PM EDT): No signs of low thyroid and check labs. Type 2 diabetes mellitus with hyperglycemia, without long-term current use of rmhiihs9708/07/2023 Assessment & Plan (01/23/2025 9:24 AM EDT): [...] smoke. Acute bronchitis due to other specified ytjkjzhms77 Assessment & Plan (08/07/2023 3:59 PM EST): [...] better or worse callfor re-evaluation. Encounters DateTypeDepartmentCare IsuvXljmpfqqmov50/20/2025 11:15 AM EDTOffice Visit [facility] [place] [facility] [address] [place] [address] Srini Velazco, DO Encounter for gynecological examination without abnormal finding; Screening for malignant neoplasm of cervix; Breast cancer screening by gqujkagsl76/20/1491Ohgipx52/29/2025Refill [facility] [place] [address] [facility] [place] [address] Kar Myles MD Type 2 diabetes mellitus with hyperglycemia, without long-term current use of insulin (HCC)02/17/2025Refill [facility] [address] [place] [phone] Kar Myles MD Type 2 diabetes mellitus [...] relatives?Once a week10/02/2024How often do you attend gnosticism or confucianist services?Never10/02/2024Do you belong to any clubs or organizations such as gnosticism groups, unions, fraternal or athletic groups, or school groups?No10/02/2024How often do you attend meetings of the clubs or organizations you belong to?Patient qrgovyna27/03/2025re you , , , , never , or living with a partner? 10/02/2024Overall Financial Resource Strain (CARDIA)AnswerDate RecordedHow hard is it for you to pay for the very basics like food, housing, medical care, and heating?Not hard at all10/02/2024PHQ-2AnswerDate RecordedPatient Health Questionnaire-2 Tbwqj798Finlayton hospital [place] of Occupational Health - Occupational Stress QuestionnaireAnswerDate RecordedDo you feel stress - tense, restless, nervous, or anxious, or unable to sleep at night because yourmind is troubled all the time - these days?Only a pyjvem0510/02/2024Exercise Vital Sign AnswerDate RecordedOn average, how many [...] were you homeless or living in a correction (including now)?No10/02/2024UDIT-CAnswerDate RecordedQ1: How often do you have a drink containing alcohol?Never04/20/2025Q2: How many drinks containing alcohol do you have on a typical day when you are drinking?Patient does not drink04/20/2025Q3: How often do you have six or more drinks on one occasion?Never04/20/2025CommentsNoSex and Gender InformationValueDate RecordedSex Assigned at BirthNot on fileLegal DvuYyhoxc85/15/2023 7:03 PM EDT Gender IdentityNot on fileSexual OrientationNot on file Last Filed Vital Signs Vital SignReadingTime TakenCommentsBlood Xlzummpe777/7804/20/2025 11:17 AM EDT Zxelb5711 9:06 AM HMONyilgfdjebb61.2 ??C (97.1 ??F)01/23/2025 9:06 AM EDTRespiratory Dlmf647301/23/2025 9:06 AM EDTOxygen Inghdlnjry25%01/23/2025 9:06 AM EDTInhaled Oxygen Concentration--Rprzmk38.2 kg (126 lb)04/20/2025 11:17 AM RESQzgloy502.6 cm (5' 6 )04/20/2025 11:17 AM EDTBody Mass Index20.341 11:17 AM EDT Plan of Treatment DateTypeDepartmentCare Team (Latest Contact Info)Mtgwjdppzuq49/26/2026 11:00 AM EDTOffice Visit [facility] [place] [facility] [address] [place] [phone] Srini Velazco, [address] [place] [address] Health MaintenanceDue DateLast DoneCommentsCT Dfbwndthcelt36/11/1973Colonoscopy 1972FIT1972FOBT10/10/19727603Rzqjfmeetsiqm26/11/1521Fqfbskzxg24/16/2025 07/17/2023, 4COVID-19 Vaccine ( season), 10/15/2020, 09/17/2020Influenza Vaccine (#1)2025Pap Smear04/10/2026 04/10/2023olorectal Cancer Numselqnx16/06/2026FIT-DNA6107/07/2022 Cervical Cancer Eegkvnfbz92/20/2030HPV/Qtaqgg06, 04/15/2024, 3Pneumococcal Vaccine: Pediatrics (0 to 5 Years) and At-Risk Patients (6 to 64 Years)Aged OutNo longer eligible based on patient's age to complete this topic Procedures Procedure NamePriorityDate/TimeAssociated DiagnosisCommentsIGP, APT HPV,RFX 16/18,69Xawzuij82/20/2025 12:00 AM EDT Screening for malignant neoplasm of cervix MM TOMOSYNTHESIS SCREENING BI07/17/2023 8:24 AM EST THINPREP TIS PAP AND HPV MRNA E6/E7 WITH REFLEX TO HPV 16,18/62Fnoyrly02/10/2023 3:09 PM EDT Encounter for gynecological examination [...] present. Clinician Provided ICD10:CommentLABCORPComment:Z12.4Performed By:CommentLABCORP Comment:Cyndie Arita, Sheeter Machine Operator ([facility])Cyto Comments.LABCORPNote: CommentLABCORPComment: The Pap smear is a screening test designed to aid in the detection of premalignant and malignant conditions of the uterine cervix. ??It is not a diagnostic procedure and should not be used as the sole means of detecting cervical cancer. ??Both false-positive and false-negative reports do occur. Test Methodology:CommentLABCORPComment: This liquid based ThinPrep(R) pap test was interpreted using the [employer](R) Genius(TM) Cervical Algorithm whole slide imaging system. HPV AptimaNegativeNegativeLABCORPComment: This nucleic acid amplification test detects fourteen high-risk HPV types (16,18,31,33,35,39,45,51,52,56,58,59,66,68) without differentiation. Specimen (Source)Anatomical Location / LateralityCollection Method / Volume Collection TimeReceived FizlEnnm11/ Narrative [facility] - 04/22/2025 5:07 PM EDT Performed at: 01 - [facility] ??[id number] Corrections Caseworker: Alethea Fatima MD, Phone: ??[phone] Performed at: ??02 - [facility] ??[id number] Corrections Caseworker: Alethea Fatima MD, Phone: ??[phone] Specimen Comment: No. of containers..01 ThinPrep Vial Authorizing ProviderResult TypeResult StatusWilldawson Velazco [facility] BLOOD ORDERABLESFinal ResultPerforming OrganizationAddressCity/State/ZIP CodePhone Number [facility] * MM TOMOSYNTHESIS SCREENING BI (07/17/2023 8:24 AM EST)Anatomical Region LateralityModalityOtherSpecimen (Source)Anatomical Location / Laterality Collection Method / VolumeCollection TimeReceived Time07/17/2023 8:24 AM EST Narrative 07/17/2023 8:25 AM EST [facility] ?[address] ? [place], [facility] ? Mammography Report ? Signed ? Patient: VAIBHAV,WENIDE J ?MR#: [id number] ?? : 1970 ?Acct:[id number] ?? Age/Sex: 52 / F ?ADM Date: 07/16/23 ?? Loc: MAMMO ? Attending Dr: Kar Myles M.D. ? Ordering Physician: Kar Myles M.D. ?Results: ? Date of Service: 07/16/23 ?Follow Up: ? Procedure(s): MM tomosynthesis screening BI ?? Accession Number(s): [id number] ? cc: Kar Myles M.D. ? Patient Name: ? WENDIE HUBBARD ? MR#: [id number] ? : 1970 ? Exam Date: 07/16/2023 [...] at age ??62. ? LOCATION: ? [facility] ? BREAST COMPOSITION: ? Heterogeneously dense,which [...] ?07/17/23824 ? DD/ 3 ? TD/TT: ? Iridologist: Procedure Note Radiology, Radiologist, MD - 07/17/2023 [place] [address] Mammography Report Signed Patient: WENDIE HUBBARD JMR#: [id number] : 1970Acct:[id number] Age/Sex: 52 / FADM Date: 07/16/23 Loc: MAMMO Attending Dr: Kar Myles M.D. Ordering Physician: Kar Myles M.D.Results: Date of Service: 07/16/23Follow Up: Procedure(s): MM tomosynthesis screening BI Accession Number(s): [id number] cc: Kar Myles M.D. Patient Name: WENDIE HUBBARD MR#: [id number] : 1970 Exam Date: 07/16/2023 Ordering Doctor: [...] skin cancer at age 62. LOCATION: [facility] BREAST COMPOSITION: Heterogeneously dense,which may obscure [...] By: Woody Andrade M.D. Signed By:07/17/23824 DD/ 3 TD/TT: Iridologist: Authorizing ProviderResult TypeResult StatusHelen DeVos Children's HospitalLINISYNC IMAGING Final Result * THINPREP TIS PAP [...] technology. CYTOTECHNOLOGISTQUESTComment: EMP, CT(ASCP) CT screening location: [facility], [address] [place] [address]. (ALWAYS MESSAGE)QUESTComment: EXPLANATORY NOTE: The Pap is [...] information. HPV MRNA E6/E7Not DetectedNot DetectedQUESTComment: Methodology: Informatics Scientist-Mediated Amplification This assay detects E6/E7 viral messenger RNA (mRNA) from 14 high-risk HPV types (16,18,31,33,35,39,45,51,52,56,58,59,66,68). Cervical sources are required for HPV testing. If a vaginal source from a patient who has had a total hysterectomy with removal of cervix was submitted, please contact the testing laboratory for alternative testing options. For additional information, please refer to http://education.Moblico/faq/DTB298p6 (This link if provided for information/ educational purposes only.) Specimen (Source)Anatomical Location / LateralityCollection Method / Volume Collection TimeReceived SourInfw97/10/2023 3:09 PM EDT1 3:46 AM EDT Narrative Resulting Agency Comment Performing Organization Information ?Site ID: [id number] ?Name: [facility] ?Address: [address] [place] [id number] ?Director: Bob Forrest MD Authorizing ProviderResult TypeResult StatusWichalo [facility] ORDERABLESFinal ResultPerforming OrganizationAddressCity/State/ZIP CodePhone Number [facility] from Last 3 Months or Most Recently Relevant to Health Maintenance Insurance Care Teams Team MemberRelationshipSpecialtyStart DateEnd Date Kar Myles MD [address] [place] [address] [facility]08/07/23
--- OUTSIDE RECORDS SUMMARY | 2025-05-11 13:25 | XMS_ITS | CCD ---
Author Organization [facility] Care Team Providers Care User Support Analyst Supervisor Name Role Phone LEIF, DR KAR De La Rosa Admitting Unavailable NADFRANCISCO, DR KAR De La Rosa Attending Unavailable LEIF, DR KAR De La Rosa Primary Care Unavailable LEIF, DR KAR De La Rosa Consulting Unavailable LEIF, DR KAR De La Rosa Admitting Unavailable LEIF, DR KAR De La Rosa Attending Unavailable LEIF, DR KAR De La Rosa Primary Care Unavailable [place], DR ANANTH Melo Consulting Unavailable LEIF, DR [...] mg oral tablet (11 sources)HMG-CoA Reductase InhibitorStart: 37-68-3943ycah 1 tablet by mouth at bedtimeatorvastatin (Lipitor) 40 MG tablet Indications: Dyslipidemia Take 1 tablet (40 mg) by mouth at bedtime 30 tablet 5 10/09/2024 Activecodeine phosphate 2 mg/ml / guaiFENesin 20 mg/ml oral solution (2 sources)Opioid AgonistStart: 08-07-2023 End: 20-68-7905zxtp 10 mL by mouth every six hours for coughguaiFENesin-codeine (Robitussin-AC) 100-10 MG/5ML syrup Indications: Acute bronchitis due to other s pecified organisms Take 10 mL by mouth every 6 (six) hours if needed for cough for up to 7 days 150mL 0 08/07/2023 08/14/2023 ActiveglipiZIDE 10 mg oral tablet (5 sources)SulfonylureaStart: 12-31-2024 End: 86-83-4505xwgo 1 tablet by mouth in the morningglipiZIDE (Glucotrol) 10 MG tablet Indications: Type 2 diabetes mellitus with hyperglycemia, without long- term current use of insulin (HCC) Take 1 tablet (10 mg) by mouth in the morning and 1 tablet (10 mg) in the evening. Take before meals. 60 tablet 5 12/31/2024 01/23/2025 DiscontinuedhydroCHLOROthiazide 25 mg oral tablet (15 sources)Thiazide DiureticStart: 01-74-2092vrpa 1 tablet by mouth once daily hydroCHLOROthiazide (HYDRODiuril) 25 MG tablet Indications: Benign essential hypertension TAKE 1 TABLET BY MOUTH EVERY DAY 90 tablet 2 12/23/2024 Active Start: 49-83-0386sats 1 tablet by mouth once dailyhydroCHLOROthiazide (HYDRODiuril) 25 MG tablet Indications: Benign essential hypertension (CMS/HCC) Take 1 tablet (25 mg) by mouth Daily 30 tablet 3 10/07/2024 ActivelevoFLOXacin 750 mg oral tablet (2 sources)Quinolone AntimicrobialStart: 08-07-2023 End: 83-49-9536lonv 1 tablet by mouth in the morninglevoFLOXacin (Levaquin) 750 MG tablet Indications: Acute bronchitis due to other specified organisms Take 1 tablet (750 mg) by mouth in the morning for 7 days. 7 tablet 0 08/07/2023 08/14/2023 Activelevothyroxine sodium 0.075 mg oral tablet (20 sources)l-ThyroxineStart: 16-41-4721uffs 1 tablet by mouth once daily levothyroxine (Synthroid, Levoxyl) 75 MCG tablet Indications: Adult hypothyroidism Take 1 tablet (75 mcg) by mouth Daily 90 tablet 3 10/09/2024 ActiveStart: 04-07-2024 End: 95-19-2441ydsl 1 tablet by mouth once dailylevothyroxine (Synthroid, Levoxyl) 50 MCG tablet Indications: Adult hypothyroidism (CMS/HCC) Take 1tablet (50 mcg) by mouth Daily 90 tablet 3 04/07/2024 10/09/2024 Discontinued (Reorder) Start: 58-63-0279ymfw 1 tablet by mouth in the morninglevothyroxine (Synthroid, Levoxyl) 50 MCG tablet Take 50 mcg by mouth in the morning. 03/20/2023 Yfikns81 hr metFORMIN hydrochloride 500 mg extended release oral tablet (12 sources)BiguanideStart: 68-10-3496wdoh 1 tablet by mouth every twenty-four hours in the morningmetFORMIN XR (Glucophage-XR) 500 MG 24 hr tablet Indications: Type 2 diabetes mellitus with hyperglycemia, without long-term current use of insulin (HCC) Take 1 tablet (500 mg) by mouth in the morning and 1 tablet (500 mg) before bedtime. Do not crush, chew, or split. 60 tablet 5 02/27/2025 ActiveStart: 11-20-2024 End: 16-12-4351cdbe 1 tablet by mouth every twenty-four hours in the morning metFORMIN XR (Glucophage-XR) 500 MG 24 hr tablet Indications: Type 2 diabetes mellitus with hyperglycemia, without long-term current use of insulin (HCC) Take 1 tablet (500 mg) by mouth in the morning and 1 tablet (500 mg) before bedtime. Do not crush, chew, or split. 60 tablet 5 12/31/2024 02/27/2025 Discontinued (Reorder)Start: 96-83-0443kgyb 1 tablet by mouth every twenty-four hours at mealtimemetFORMIN XR (Glucophage-XR) 500 MG 24 hr tablet Indications: Type 2 diabetes mellitus with hyperglycemia, without long-term current use of insulin (CMS/HCC) Take 1 tablet (500 mg) by mouth in the morning. Take with meals. Do not crush, chew, or split. 30 tablet 3 11/03/2024 Activepotassium chloride 20 meq extended release oral tablet (7 sources)Start: 13-62-1765vzma 1 tablet by mouth once dailypotassium chloride CR (K-Tab) 20 MEQ ER tablet Indications: Hypokalemia TAKE 1 TABLET (20 MEQ) BY MOUTH DAILY DO NOT CRUSH, CHEW, OR SPLIT. 90 tablet 2 01/22/2025 ActiveStart: 74-68-4684hrlv 1 tablet by mouth once dailypotassium chloride CR (K-Tab) 20 MEQ ER tablet Indications: Hypokalemia Take 1 tablet (20 mEq) by mouth Daily Do not crush, chew, or split. 30 tablet 5 12/31/2024 ActiveStart: 23-98-2438bfww 1 tablet by mouth once dailypotassium chloride CR (K-Tab) 20 MEQ ER tablet Indications: Hypokalemia Take 1 tablet (20 mEq) by mouth Daily Do not crush, chew, or split. 30 tablet 5 12/31/2024 ActivepredniSONE 50 mg oral tablet (2 sources)Start: 08-07-2023 End: 79-08-8573mwdx 1 tablet by mouth in the morningpredniSONE (Deltasone) 50 MG tablet Indications: Acute bronchitis due to other specified organisms Take 1 tablet (50 mg) by mouth in the morning for 6 days. 6 tablet 0 08/07/2023 08/13/2023 Meuiyy73 hr scopolamine 0.0139 mg/hr transdermal system (7 sources)AnticholinergicStart: 05-13-5300hvipafwlnme (Transderm-Scop) 1 mg/72 hr patch 72 hour patch Indications: Motion sickness, initial encounter Place 1 patch on the skin every 3rd (third) day if needed (nausea) 4 patch 2 10/07/2024 Active0.25 mg, 0.5 mg dose 1.5 ml semaglutide 1.34 mg/ml pen injector (7 sources)Start: 10-07-2024 End: 77-11-8306cauxzzalrdt (Ozempic) 2 MG/1.5ML solution pen-injector Indications: Type 2 diabetes mellitus with hyperglycemia, without long-term current use of insulin (CMS/HCC) 0.25 mg SC weekly x 4 weeks, then 0.5 mg weekly 1 each 3 10/09/2024 ActiveTirzepatide (Mounjaro) 2.5 MG/0.5ML solution auto-injector (5 sources)Start: 12-31-2024 End: 66-07-6645jliswy 2.5 mg by subcutaneous injection every weekTirzepatide (Mounjaro) 2.5 MG/0.5ML solution auto-injector Indications: Type 2 diabetes mellitus with hyperglycemia, without long-term current use of insulin (HCC) Inject 2.5 mg under the skin 1 (one) time per week 2 mL 12/31/2024 01/23/2025 DiscontinuedStart: 96-09-6992ywoale 2.5 mg by subcutaneous injection every week Tirzepatide (Mounjaro) 2.5 MG/0.5ML solution auto-injector Indications: Type 2 diabetes mellitus with hyperglycemia, without long-term current use of insulin (HCC) Inject 2.5 mg under the skin 1 (one) time per week 2 mL 12/31/2024 Active Tirzepatide (Mounjaro) 5 MG/0.5ML solution auto-injector (4 sources)Start: 78-42-9685vytvdm 5 mg by subcutaneous injection every week Tirzepatide (Mounjaro) 5 MG/0.5ML solution auto-injector Indications: Type 2 diabetes mellitus withhyperglycemia, without long-term current use of insulin (HCC) INJECT 5 MG UNDER THE SKIN ONE TIME PER WEEK 0.5 mL 3 02/17/2025 Active Start: 58-11-7847bfoiyb 5 mg by subcutaneous injection every weekTirzepatide [...] Translations: [Type 2 diabetes mellitus with hyperglycemia]Onset: 318529-77-9497Lohoofl Disorders of lipid metabolism (20 sources)Dyslipidemia; Translations: [Hyperlipidemia, unspecified]Onset: 822352-43-0806MdjexjyCezceeiiy hypertension (20 sources)Benign essential hypertension; Translations: [Essential (primary) hypertension]Onset: 184017-42-3158UjodiqhRzkbw injuries and conditions due to external causes (2 sources)Motion sickness; Translations: [Motion sickness, initial encounter] 87-98-3374DsbnkytjOtkpj liver diseases (9 sources)Fatty (change of) liver, not elsewhere classified; Translations: [Other chronic nonalcoholic liver disease]Onset: 031674-27-0456Gjswbrm Other screening for suspected conditions (not mental disorders or infectious disease) (11 sources)Encounter for screening mammogram for malignant neoplasm of breast; Translations: [Cancer cervix screening status]Onset: 89-81-3153YwfmqjfxPcslsaof codes; unclassified (1 source)Family history of malignant neoplasm of other organs or systems; Translations: [FAM HX MALIG NEOPLASM OTH ORGN/SYS]Onset: 11-51-2496Inlgkqkk Thyroid disorders (20 sources)Hypothyroidism, unspecified; Translations: [Hypothyroidism]Onset: 103732-28-7267Hlmehnm Past or Other Problems Problem ClassificationProblemDateDocumented DateEpisodic/ChronicAcute bronchitis (20 sources)Acute infective bronchitis; Translations: [Acute bronchitis due to other specified organisms]Onset: 08-07-2023 Resolved: 168021-24-0213TbixvaxsToghxjsv mellitus without complication (15 sources)Prediabetes; Translations: [Prediabetes]Onset: 107044-92-1635 EpisodicFluid and electrolyte disorders (10 sources)Hypokalemia; Translations: [Hypokalemia]Onset: 175420-39-2256 EpisodicOther circulatory disease (8 sources)Elevated blood-pressure reading without diagnosis of hypertension; Translations: [Elevated blood-pressure reading, without diagnosis of hypertension]Onset: 808040-30-6426Nrylzlgf Results Test NameValueInterpretationReference RangeFacilityUS RIGHT UPPER QUADRANTon 65-12-9369[place] [address] Ultrasound Report Signed Patient: WENDIE HUBBARD MR#: [id number] : 1970 Acct:[id number] Age/Sex: 54 / F ADM Date: 11/14/24 Loc: US Attending Dr: Kar Yadav M.D. Ordering Physician: Kar Yadav M.D. Date of Service: 11/14/24 Procedure(s): US right upper quadrant Accession Number(s): [id number] cc: Kar Yadav M.D. [address] [place] [id number] Patient Name: WENDIE HUBBARD MRN: [id number] date: 1970 Sex: F Assigned Patient Location: US Current Patient Location: US Accession/Order Number: [id number] Exam Date: 11/14/2024 09:28 Report Date: 11/14/2024 [...] Christianson M.D. 11/14/2024 9:30 AM Dictation Location: [place] [address] Electronically authenticated by: [id number] Y Date: 11/14/2024 09:30 Dictated By: Denzel Christianson M.D. Signed By: 11/14/2432 DD/ 9 TD/TT: Acoustical Tile Patternmaker:TBHRadiology, Radiologist, - 11/14/2024 [place] [address] Ultrasound Report Signed Patient: WENDIE HUBBARD MR#: [id number] : 1970 Acct:[id number] Age/Sex: 54 / F ADM Date: 11/14/24 Loc: US Attending Dr: Kar Yadav M.D. Ordering Physician: Kar Yadav M.D. Date of Service: 11/14/24 Procedure(s): US right upper quadrant Accession Number(s): [id number] cc: Kar Yadav M.D. [place] [id number] Patient Name: WENDIE HUBBARD MRN: [id number] date: 1970 Sex: F Assigned Patient Location: US Current Patient Location: US Accession/Order Number: [id number] Exam Date: 11/14/2024 09:28 Report Date: 11/14/2024 [...] Christianson M.D. 11/14/2024 9:30 AM Dictation Location: [place] [address] Electronically authenticated by: [id number] Y Date: 11/14/2024 09:30 Dictated By: Denzel Christianson M.D. Signed By: 11/14/2432 DD/ 9 TD/TT: Acoustical Tile Patternmaker: NICHOLAS HealthcareRadiology Study observation (narrative)NICHOLAS HealthcareUS RIGHT UPPER QUADRANTOrdered By: Radiologist Radiology on 53-85-6722PHCJ Healthcare Work Phone: aLL CBC WITH AUTO DIFFon 08-09-6629HPUOOMBIE ABSOLUTE AUTO0.1NOMS HealthcareBasophils/100 WBC (Bld)0.6 %0.2 - 2.0 %[facility] Eosinophils/100 WBC (Bld)2.7 %0.9 - 7.0 %NOMS HealthcareErythrocyte distribution width (RBC) [Ratio]12.2 %11.0 - 15.0 %NOMS HealthcareHematocrit (Bld) [Volume fraction]44.8 %36.0 - 48.0 %NOM HealthcareHemoglobin (Bld) [Mass/Vol]15.8 g/dL 12.0 - 16.0 g/dLNOOzarks Medical CenterIMMATURE GRANULOCYTES ABS AUTO0.03NOMS [facility] Immature granulocytes/100 WBC (Bld)0.3 %0.0 - 0.5 %NOM HealthcareInterpretation and review of laboratory resultsAbnormalNOOzarks Medical CenterLYMPHOCYTES ABSOLUTE AUTO3.7NOMS HealthcareLymphocytes/100 WBC (Bld)37.7 %20.5 - 60.0 %NOMSaint Luke's North Hospital–Barry RoadH (RBC) [Entitic mass]29.6 pg26.7 - 34.0 pgNOOzarks Medical CenterMCHC (RBC) [Mass/Vol]35.3 g/bDLdbk58.9 - 35.2 g/dLSalem Memorial District HospitalMCV (RBC) [Entitic vol] 83.9 fL81.0 - 99.0 fLNOOzarks Medical CenterMONOCYTES ABSOLUTE AUTO0.5NOMS [facility] Monocytes/100 WBC (Bld)5.5 %1.7 - 12.0 %NOM HealthcareNEUTROPHILS ABSOLUTE AUTO 5.2NOMS HealthcareNeutrophils/100 WBC (Bld)53.2 %43.0 - 75.0 %NOMBothwell Regional Health Center Platelet mean volume (Bld) [Entitic vol]9.9 fL9.5 - 13.5 fLNOOzarks Medical CenterTBH EO #0.3NOMS [facility] Medical CenterTBH SCF828ZYUH [facility] RBC5.34NOMS [facility] WBC9.8 NOMS HealthcareCLINISYNCNOMS [facility] Medical CenterMM TOMOSYNTHESIS SCREENING BIon 07-65-5359[place] [address] Mammography Report Signed Patient: WENDIE HUBBARD MR#: [id number] : 1970 Acct:[id number] Age/Sex: 52 / F ADM Date: 07/16/23 Loc: MAMMO Attending Dr: Kar Yadav M.D. Ordering Physician: Kar Yadav M.D. Results: Date of Service: 07/16/23 Follow Up: Procedure(s): MM tomosynthesis screening BI Accession Number(s): [id number] cc: Kar Yadav M.D. Patient Name: WENDIE HUBBARD MR#: [id number] : 1970 Exam Date: 07/16/2023 Ordering Doctor: [...] skin cancer at age 62. LOCATION: [facility] BREAST COMPOSITION: Heterogeneously dense,which may obscure [...] M.D. Signed By: 07/17/2325 DD/ 3 TD/TT: Acoustical Tile Patternmaker:TBHRadiology, RadiologistMD - 07/17/2023 [place] [address] Mammography Report Signed Patient: WENDIE HUBBARD MR#: [id number] : 1970 Acct:[id number] Age/Sex: 52 / F ADM Date: 07/16/23 Loc: MAMMO Attending Dr: Kar Yadav M.D. Ordering Physician: Kar Yadav M.D. Results: Date of Service: 07/16/23 Follow Up: Procedure(s): MM tomosynthesis screening BI Accession Number(s): [id number] cc: Kar Yadav M.D. Patient Name: WENDIE HUBBARD MR#: [id number] : 1970 Exam Date: 07/16/2023 Ordering Doctor: [...] skin cancer at age 62. LOCATION: [facility] BREAST COMPOSITION: Heterogeneously dense,which may obscure [...] M.D. Signed By: 07/17/2325 DD/ 3 TD/TT: Acoustical Tile Patternmaker: NICHOLAS HealthcareRadiology Study observation (narrative)[facility] TOMOSYNTHESIS SCREENING BIOrdered By: Radiologist Radiology on 85-25-0253HMFF [facility] Work Phone: mg MAMM SCREEN 3D URSULA CADon 13-65-6213RB MAMM SCREEN 3D URSULA CADPatient: WENDIE HUBBARD Exam Date: 05/16/2022 : 1970 Gender:F Ordering : DR KAR YADAV . Admission #: [id number] Family : Order #: [id number] CLICK HERE TO VIEW EXAM RADIOLOGY REPORT [...] skin cancer at age 62. LOCATION: [facility] BREAST COMPOSITION: Heterogeneously dense,which may obscure [...] by: Ananth Lomax MD on 05/16/2022 at 10:49NormalThParkwood Hospital AUTO DIFFon 35-48-7986XKJB #0.0 103/ulNormal0.0-0.1[facility] HospitalComment on above:Performed By: #### CBC #### [facility] [address] [place] [address] Dr. Cash GrayBasophils/100 WBC (Bld)0.6 %Normal0.2-2.0[facility] Comment on above:Performed By: #### CBC #### [facility] [address] [place] [address] [address] Cash Butts #0.3 103/ulNormal0.0-0.7The [facility] HospitalComment on above: Performed By: #### CBC #### [facility] [address] [place] [address] Dr. Cash Ibanezosinophils/100 WBC (Bld)3.9 %Normal0.9-7.0[facility] Comment on above:Performed By: #### CBC #### [facility] [address] [place] [address] Dr. Cash Ibanezrythrocyte distribution width (RBC) [Ratio]12.3 %Xbnqrt91.0-15.0 The [facility] HospitalComformerly [facility] on above:Performed By: #### CBC #### [facility] [address] [place] [address] Dr. Cash GrayHematocrit (Bld) [Volume fraction]43.1 %Cqxhqa87.0-48.0The [facility] HospitalComment on above:Performed By: #### CBC #### [facility] [address] [place] [address] Dr. Cash GrayHemoglobin (Bld) [Mass/Vol]14.3 g/aKOhwxpa12.0-16.0The [facility] HospitalComment on above:Performed By: #### CBC #### [facility] [address] [place] [address] Dr. Cash Nicolas #0.02 10e3/ulNormal0.00-0.03The [facility] HospitalComformerly [facility] on above:Performed By: #### CBC #### [facility] [address] [place] [address] Dr. Cash Nicolas %0.3 %Normal0.0-0.5The [facility] on above: Performed By: #### CBC #### [facility] [address] [place] [address] Dr. Cash StarrH #2.6 103/ulNormal1.2-3.8The [facility] HospitalComment on above:Performed By: #### CBC #### [facility] [address] [place] [address] Dr. Cash Starrhocytes/100 WBC (Bld)36.3 %Ebakvn03.5-60.0The [facility] HospitalComment on above:Performed By: #### CBC #### [facility] [address] [place] [address] Dr. Cash JohnsonUAL DIFF REQNONormalThe [facility] HospitalComment on above: Performed By: #### CBC #### [facility] [address] [place] [address] [address] Cash Mary (RBC) [Entitic mass]28.7 smCmopbe14.7-34.0The [facility] HospitalComment on above:Performed By: #### CBC #### [facility] [address] [place] [address] Dr. Cash Mary (RBC) [Mass/Vol]33.2 g/iSBacmhp90.9-35.2The [facility] HospitalComment on above:Performed By: #### CBC #### [facility] [address] [place] [address] Dr. Cash Mary (RBC) [Entitic vol]86.5 nCHzqgez76.0-99.0The [facility] HospitalComment on above:Performed By: #### CBC #### [facility] [address] [place] [address] Dr. Cash Sapp #0.4 103/ulNormal0.3-0.8The [facility] HospitalComment on above:Performed By: #### CBC #### [facility] [address] [place] [address] Dr. Cash Cochranocytes/100 WBC (Bld)5.7 %Normal1.7-12.0The [facility] Comment on above:Performed By: #### CBC #### [facility] [address] [place] [address] Dr. Cash Franz #3.8 103/ulNormal1.4-6.5The [facility] HospitalComment on above:Performed By: #### CBC #### [facility] [address] [place] [address] Dr. Cash Lugoutrophils/100 WBC (Bld)53.2 %Oqybcv16.0-75.0The [facility] HospitalComment on above:Performed By: #### CBC #### [facility] [address] [place] [address] Dr. Cash Murillolet mean volume (Bld) [Entitic vol]10.6 fLNormal9.5-13.5The [facility] HospitalComment on above:Performed By: #### CBC #### [facility] [address] [place] [address] Dr. Cash GrayPLT231 103/cbAblgme041-016Srr [facility] HospitalComformerly [facility] on above: Performed By: #### CBC #### [facility] [address] [place] [address] Dr. Cash GrayRBC4.98 106/ulNormal4.20-5.40The [facility] HospitalComment on above:Performed By: #### CBC #### [facility] [address] [place] [address] Dr. Cash GrayWBC7.2 103/ulNormal4.0-11.0The [facility] HospitalComformerly [facility] on above: Performed By: #### CBC #### [facility] [address] [place] [address] Dr. Cash Kelly T3on 21-30-9951CCQT T32.65 pg/mlLNormal2.18-3.98The [facility] HospitalComformerly [facility] on above:Performed By: #### BMP, LIVER, LIPID, TSH, FT3 #### [facility] [address] [place] [address] Dr. Cash Kelly T4on 46-26-0453Cyne T4 [Mass/Vol]1.12 ng/dLNormal0.76-1.46 The [facility] HospitalComformerly [facility] on above:Performed By: #### FT4 #### [facility] [address] [place] [address] Dr. Cash GrayGLYCOHEMOGLOBIN A1Con 61-49-5802NCB RECOMMENDATIONSEE BELOWNormal The [facility] HospitalComformerly [facility] on above:Result Comment: ADA RECOMMENDED LIMIT 4.0 - 6.0 ADA THERAPEUTIC TARGET < 7.0 ACTION SUGGESTED > 7.0Performed By: #### A1C #### [facility] [address] [place] [address] Dr. Cash GrayHbA1c (Bld) [Mass fraction]6.0 %Normal4.5-6.2The [facility] HospitalComment on above:Performed By: #### A1C #### [facility] [address] [place] [address] Dr. Cash TroyID PROFILEon 71-22-0258GNLR-HDL RATIO NORMSEE [facility] on above:Result Comment: 3.3 - 4.4 LOW RISK 4.4 - 7.1 AVERAGE RISK 7.1 - 11.0 MODERATE RISK >11.0 HIGH RISKPerformed By: #### BMP, LIVER, LIPID, TSH, FT3 #### [facility] [address] [place] [address] Dr. Cash Figueredoesterol [Mass/Vol]260 mg/dLCritically high<=200The [facility] on above:Performed By: #### BMP, LIVER, LIPID, TSH, FT3 #### [facility] [address] [place] [address] Dr. Cash GrayCholesterol in HDL [Mass/Vol]50 mg/sWVjhzhz67-62KiyElyria [facility] Hospital on above:Performed By: #### BMP, LIVER, LIPID, TSH, FT3 #### [facility] [address] [place] [address] Dr. Cash Figueredoesterol in LDL [Mass/Vol]190.0 mg/dLSelect Medical [facility], [place] on above:Performed By: #### BMP, LIVER, LIPID, TSH, FT3 #### [facility] [address] [place] [address] Dr. Cash Espino.total/Cholesterol in HDL [Mass ratio]5.2 {ratio} NormalElyria Memorial Hospital on above:Performed By: #### BMP, LIVER, LIPID, TSH, FT3 #### [facility] [address] [place] [address] Dr. Cash Dorantes NORMAL> or = 60 mg/dl - LOW CARDIOVASCULAR RISK <40 mg/dl - HIGH CARDIOVASCULAR RISKSelect Medical [facility], [place] on above:Performed By: #### BMP, LIVER, LIPID, TSH, FT3 #### [facility] [address] [place] [address] [address] Cash Rahman CALC NORMALSEE BELOWNoWilson Memorial HospitalComment on above:Result Comment: <100 mg/dl OPTIMAL 100 - 129 mg/dl NEAR OR ABOVE OPTIMAL 130 - 159 mg/dl BORDERLINE HIGH 160 - 189 mg/dl HIGH >190 mg/dl VERY HIGH Performed By: #### BMP, LIVER, LIPID, TSH, FT3 #### [facility] [address] [place] [address] [address] Cash GrayTriglyceride [Mass/Vol]100 mg/dLNormal<=150The [facility] Comment on above:Performed By: #### BMP, LIVER, LIPID, TSH, FT3 #### [facility] [address] [place] [address] Dr. Cash GrayVLDL CALC20.0 mg/dLNoWilson Memorial HospitalComment on above: Performed By: #### BMP, LIVER, LIPID, TSH, FT3 #### [facility] [address] [place] [address] Dr. Cash Cleary PROFILEon 15-99-1999Jvyerby [Mass/Vol]3.5 g/dLNormal3.4-5.0 The [facility] HospitalComformerly [facility] on above:Performed By: #### BMP, LIVER, LIPID, TSH, FT3 #### [facility] [address] [place] [address] Dr. Cash GrayAlbumin/Globulin [Mass ratio]0.8 {ratio}NormalThe [facility] HospitalComment on above:Performed By: #### BMP, LIVER, LIPID, TSH, FT3 #### [facility] [address] [place] [address] Dr. Cash Key [Catalytic activity/Vol]113 U/LXzswex90-542Mmq [facility] on above:Performed By: #### BMP, LIVER, LIPID, TSH, FT3 #### [facility] [address] [place] [address] Dr. Cash Yadav [Catalytic activity/Vol]61 U/LCritically acij57-22Mpf [facility] HospitalComment on above:Performed By: #### BMP, LIVER, LIPID, TSH, FT3 #### [facility] [address] [place] [address] Dr. Cash GrayAST [Catalytic activity/Vol]26 U/VPdyqfa52-50Uvf [facility] HospitalComment on above:Performed By: #### BMP, LIVER, LIPID, TSH, FT3 #### [facility] [address] [place] [address] Dr. Cash CamposI, CONJUGATED0.1 mg/dLNormal0.0-0.2[facility] Comment on above:Performed By: #### BMP, LIVER, LIPID, TSH, FT3 #### [facility] [address] [place] [address] Dr. Cash Camposirubin [Mass/Vol]0.2 mg/dLNormal0.2-1.0[facility] Comment on above:Performed By: #### BMP, LIVER, LIPID, TSH, FT3 #### [facility] [address] [place] [address] Dr. Cash GrayGlobulin (S) [Mass/Vol]4.3 g/dLNormalThe [facility] HospitalComment on above:Performed By: #### BMP, LIVER, LIPID, TSH, FT3 #### [facility] [address] [place] [address] Dr. Cash GrayProtein [Mass/Vol]7.8 g/dLNormal6.4-8.2[facility] Comment on above:Performed By: #### BMP, LIVER, LIPID, TSH, FT3 #### [facility] [address] [place] [address] Dr. Cash GrayPROF CHEM 8 (BAS METB)on 31-63-7975Urutf gap [Moles/Vol]11.1 mmol/LNormalPromedica [facility]ostoria [facility] HospitalComment on above:Performed By: #### BMP, LIVER, LIPID, TSH, FT3 #### [facility] [address] [place] [address] Dr. Cash GrayCalcium [Mass/Vol]8.9 mg/dLNormal8.5-10.1[facility] Comment on above:Performed By: #### BMP, LIVER, LIPID, TSH, FT3 #### [facility] [address] [address] [address] Cash GrayChloride [Moles/Vol]104 mmol/NQxqdks89-029Txx [facility] Comment on above:Performed By: #### BMP, LIVER, LIPID, TSH, FT3 #### [facility] [address] [place] [address] Dr. Cash GrayCO2 [Moles/Vol]24.0 mmol/EHdwdim00.0-32.0[facility] Comment on above:Performed By: #### BMP, LIVER, LIPID, TSH, FT3 #### [facility] [address] [place] [address] Dr. Cash GrayCreatinine [Mass/Vol]0.91 mg/dLNormal0.55-1.02[facility] HospitalComment on above:Performed By: #### BMP, LIVER, LIPID, TSH, FT3 #### [facility] [address] [place] [address] Dr. Cash IbanezGFR-AF NIGERIAN>60Normal>=60[facility] HospitalComment on above:Performed By: #### BMP, LIVER, LIPID, TSH, FT3 #### [facility] [address] [place] [address] Dr. Cash IbanezGFR-NON AF NIGERIAN>60Normal>=60[facility] HospitalComment on above:Performed By: #### BMP, LIVER, LIPID, TSH, FT3 #### [facility] [address] [place] [address] Dr. Cash GrayGlucose [Mass/Vol]126 mg/dLNormalThe [facility] HospitalComment on above:Performed By: #### BMP, LIVER, LIPID, TSH, FT3 #### [facility] [address] [place] [address] Dr. Cash GrayPerformed By: #### A1C #### [facility] [address] [place] [address] Dr. Cash GrayPotassium [Moles/Vol]4.1 mmol/LNormal3.5-5.1[facility] Comment on above:Performed By: #### BMP, LIVER, LIPID, TSH, FT3 #### [facility] [address] [address] [address] Cash GraySodium [Moles/Vol]135 mmol/LCritically clx163-666Hdd [facility] HospitalComment on above:Performed By: #### BMP, LIVER, LIPID, TSH, FT3 #### [facility] [address] [place] [address] Dr. Cash GrayUrea nitrogen [Mass/Vol]13.0 mg/dLNormal7.0-18.0[facility] HospitalComment on above:Performed By: #### BMP, LIVER, LIPID, TSH, FT3 #### [facility] [address] [place] [address] Dr. Cash GrayUrea nitrogen/Creatinine [Mass ratio]14.3 mg/mgNormalThe [facility] HospitalComment on above:Performed By: #### BMP, LIVER, LIPID, TSH, FT3 #### [facility] [address] [place] [address] Dr. Cash Frederick 49-58-9288BYY4.830 uIU/mLNormal0.358-3.740The [facility] HospitalComment on above:Performed By: #### BMP, LIVER, LIPID, TSH, FT3 #### [facility] [address] [place] [address] Dr. Cash Gray Vital Signs Date TimeVital SignValuePerforming VnbstikcqAzwwavnd38-32-4109 11:040Body blqubq511.6 cmCherichalo Blackburn DO Work Phone: noOzarks Medical CenterKhpaxntztx18-13-2129 11:17-0400Body mass index (BMI) [Ratio]20.34 kg/q6IdxmpjiAshlee Blackburn DO Work Phone: noOzarks Medical CenterObqkymqtko51-01-1531 11:17-040Body .15 kgWiannelieseradha Blackburn DO Work Phone: noMS Ddjrenhcxc76-22-9871 11:17-0400Diastolic blood mm[Hg]Ashlee Blackburn DO Work Phone: noOz[facility] Medical CenterXzqunptwda21-01-3722 11:17-0400Systolic blood nloeklvk398 mm[Hg]Ashlee Blackburn DO Work Phone: noOzarks Medical CenterJjcprvgkty73-68-1817 09:06-0400Body afqunt763.6 cmKar Yadav MD Work Phone: [facility] HospitalZzrvjciwdb54-61-6934 09:06-0400Body mass index (BMI) [Ratio]25.02 kg/m2Kar Yadav MD Work Phone: [facility] HospitalBsohahpgwl01-42-4080 09:06-0400Body temperature 97.11 [degF]Kar Yadav MD Work Phone: [facility] HospitalEmkmggcvda45-67-8030 09:06-0400Body ebuish80.31 kgKar Yadav MD Work Phone: [facility] HospitalNnyooqylct00-62-6277 09:06-0400Diastolic blood dddklyln70 mm[Hg]Kar Yadav MD Work Phone: [facility] HospitalQlxoewovus07-36-8639 09:06-0400Heart rate96 /min Kar Yadav MD Work Phone: [facility] HospitalVnacyizkuq30-83-5845 09:06-0400Respiratory rate20 /minKar Yadav MD Work Phone: [facility] HospitalGtgfkkxylr58-32-3127 09:06-0386YqM0% (BldA) [Mass fraction]96 %Kar Yadav MD Work Phone: [facility] HospitalUqnsqfkpxf90-82-9762 09:06-0400Systolic blood ozauygkc187 mm[Hg]Kar Yadav MD Work Phone: [facility] HospitalOxuuhrfvld50-81-5398 11:27-0400Body boqqcj811.6 cmKar Yadav MD Work Phone: 1(419)547-[address] [place], [place] [address]Gkcflnnfys36-74-4065 11:27-0400Body mass index (BMI) [Ratio]25.5 kg/m2Kar Yadav MD Work Phone: [facility] HospitalIugzpgnphi77-49-4252 11:27-0400Body temperature 97.5 [degF]Kar Yadav MD Work Phone: [facility] HospitalZwhzhhyjwq07-19-4696 11:27-0400Body wituyf45.67 kgKra Yadav MD Work Phone: 1(993)506-[address] [place], [place] [address]Iaemclttfm99-33-2774 11:27-0400Diastolic blood kumdyeif55 mm[Hg]Kar Yadav MD Work Phone: [facility] HospitalHpwmbsdfjx23-48-5766 11:27-0400Heart mnmh884 /min Kar Yadav MD Work Phone: [facility] HospitalMtafpgvmoi26-13-9061 11:27-0400Respiratory rate20 /minKar Yadav MD Work Phone: 1(012)171-[address] [place], [place] [address]Lgukpvzzsh36-03-2483 11:27-0080SgY4% (BldA) [Mass fraction]98 %Kar Yadav MD Work Phone: [facility] HospitalUqkykmwulu83-20-4995 11:27-0400Systolic blood kagxtgcb805 mm[Hg]Kar Yadav MD Work Phone: [facility] HospitalLpxqbqovdv62-71-4732 14:32-0400Body jbxumj134.6 cmKar Yadav MD Work Phone: [facility] HospitalPczwadyfnn89-63-1852 14:32-0400Body mass index (BMI) [Ratio]28.89 kg/m2Kar Yadav MD Work Phone: [facility] HospitalAvpfwzdtvm76-46-4602 14:32-0400Body temperature 97.11 [degF]Kar Yadav MD Work Phone: [facility] HospitalRexyyskycx96-35-8494 14:32-0400Body ikwomo09.19 kgKar Yadav MD Work Phone: 1(419)547-[address] [place], [place] [address]Jdiqnqyfln89-01-2624 14:32-0400Diastolic blood nlsnmicc977 mm[Hg]Kar Yadav MD Work Phone: [facility] HospitalNjrakxppmk38-82-7871 14:32-0400Heart ztqy517 /min Kar Yadav MD Work Phone: [facility] HospitalCwuekflxti56-30-2428 14:32-0400Respiratory rate22 /minKar Yadav MD Work Phone: [facility] HospitalXdanxulfze70-36-7623 14:32-5369MkH8% (BldA) [Mass fraction]98 %Kar Yadav MD Work Phone: [facility] HospitalBiziehcctu23-98-5605 14:32-0400Systolic blood tmvsgfyw268 mm[Hg]Kar Yadav MD Work Phone: [facility] HospitalOoghzwmtay38-30-0341 10:12-0400Body risney363.6 cmAshlee Blackburn DO Work Phone: [address] [address]Ozvpowiilr72-99-6017 10:12-0400Body mass index (BMI) [Ratio]28.08 kg/j3TidmaapAshlee Blackburn DO Work Phone: [facility] HospitalLqkajpjicx84-77-0934 10:12-0400Body bpkmfe20.93 kgWichalo Blackburn DO Work Phone: [facility] HospitalQiltxpohse26-08-1727 10:12-0400Diastolic blood meltkwwc94 mm[Hg]Ashlee Blackburn DO Work Phone: [address] [address]Urxlqhvwul92-65-9489 10:12-0400Systolic blood ulyjitra479 mm[Hg]Ashlee Blackburn Work Phone: [facility] HospitalBtcxmozruh40-67-9907 10:50-0400Body .6 cmKar Yadav MD Work Phone: [facility] HospitalUyqgcwjjij51-48-7097 10:50-0400Body mass index (BMI) [Ratio]28.41 kg/m2Kar Yadav MD Work Phone: 1(419)547-[address] [place], [place] [address]Aqspsxctip51-28-6786 10:50-0400Body temperature 97.5 [degF]Kar Yadav MD Work Phone: [facility] HospitalJkaveaiqua12-38-9838 10:50-0400Body dcjtdo66.83 kgKar Yadav MD Work Phone: [facility] HospitalUocrbwpwzr73-34-5612 10:50-0400Diastolic blood resiecio09 mm[Hg]Kar Yadav MD Work Phone: 1(816)259-[address] [place], [place] [address]Ktchvwvvnn31-28-2944 10:50-0400Heart oyzb296 /min Kar Yadav MD Work Phone: [facility] HospitalJmmpqeuwsm57-90-9943 10:50-0400Respiratory rate20 /minKar Yadav MD Work Phone: [facility] HospitalObsknsewwo8239 10:50-3223KvF0% (BldA) [Mass fraction]98 %Kar Yadav MD Work Phone: [facility] HospitalCimyjbprre44-05-2740 10:50-0400Systolic blood bngginbr344 mm[Hg]Kar Yadav MD Work Phone: [facility] HospitalHefpjqvmbm92-38-4643 15:39-0500Body .6 cmKar Yadav MD Work Phone: [facility] HospitalPafijxheza95-34-4033 15:39-0500Body mass index (BMI) [Ratio]27.44 kg/m2Kar Yadav MD Work Phone: [facility] HospitalPtpptfwqjt16-39-3839 15:39-0500Body temperature 98.71 [degF]Kar Yadav MD Work Phone: [facility] HospitalDxtmffqous54-89-0684 15:39-0500Body .11 kgKar Yadav MD Work Phone: [facility] HospitalFcpdcbulth78-85-9160 15:39-0500Diastolic blood ivblyngi57 mm[Hg]Kar Yadav MD Work Phone: [facility] HospitalUtsztfbrmk18-23-0654 15:39-0500Heart uvzl203 /min Kar Yadav MD Work Phone: [facility] Pehutyuzdu56-56-7743 15:39-5288EfM2% (BldA) [Mass fraction]96 %Kar Yadav MD Work Phone: [facility] Ymormhfkxz09-04-6118 15:39-0500Systolic blood msbrjmoh612 mm[Hg]Kar Yadav MD Work Phone: [facility] Encounters Encounter DateEncounter TypeCare ProviderFacilityStart: 04-20-2025 End: 94-51-8697Gfgpmwi encounter statusWilldawson Blackburn DO Work Phone: noms HealthcareStart: 04-20-2025 End: 69-44-3033Owikdmap preventive med est patient 40-64yrsWilliam Bakari Blackburn DO Work Phone: [facility] OBGYNComment on above:Encounter for gynecological examination without abnormal finding; Screening for malignant neoplasm of cervix; Breast cancer screening by mammogramStart: 04-20-2025 End: 53-79-9377dhnpucmvimOHRZYPX D BRUNERNot AvailableStart: 02-27-2025 End: 37-28-4320HlekjfSaav Naderer MD Work Phone: [facility] CWM FMComment on above:Type 2 diabetes mellitus with hyperglycemia, without long-term current use of insulin (HCC)Start: 01-23-2025 End: 35-81-8160Beyrny flowsheetKar Yadav MD Work Phone: [facility] CWM FMStart: 01-23-2025 End: 15-69-3269Qllbjg flowsheetKar Yadav MD Work Phone: [facility] CWM FMStart: 01-23-2025 End: 07-85-3090Svdkzc outpatient visit 15 minutesKar Yadav MD Work Phone: [facility] CWM FMComment on above:Type 2 diabetes mellitus with hyperglycemia, without long-term current use of insulin (HCC) (Primary Dx); Benign essential hypertensionStart: 01-23-2025 End: 16-18-9173kvmrrvzmspULKH NADERERNot AvailableStart: 12-31-2024 End: 70-10-8129Jpsigv Markie Yadav MD Work Phone: NONC CWM FMStart: 12-31-2024 End: 54-87-1166Holkgj Markie Yadav MD Work Phone: [facility] CWM FMStart: 12-31-2024 End: 97-95-9701Yblvfs outpatient visit 25 minutesKar Yadav MD Work Phone: [facility] CWM FMComment on above:Type 2 diabetes mellitus with hyperglycemia, without long-term current use of insulin (HCC) (Primary Dx); Benign essential hypertension ; HypokalemiaStart: 12-31-2024 End: 81-01-3243augcnqcynjONJH NADERERNot AvailableStart: 11-20-2024 End: 62-17-5719bmhllxdrkkVYUI NADERERNot AvailableStart: 11-14-2024 End: 73-76-5184Szzboanew Result EncounterKar Yadav MD Work Phone: [facility] External Department UnsolicitedStart: 11-14-2024 End: 85-63-2395Rucrbyjai Result EncounterKar Yadav MD Work Phone: [facility] External Department UnsolicitedStart: 10-09-2024 End: 43-37-1492Tinxmhuko Result Agustina Yadav MD Work Phone: [facility] External Department UnsolicitedStart: 10-09-2024 End: 12-33-6777Tvsskpapc Result Agustina Yadav MD Work Phone: [facility] External Department UnsolicitedStart: 10-09-2024 End: 39-55-4922Muwovh OnlyKar Yadav MD Work Phone: [facility] CWM FMComment on above:Type 2 diabetes mellitus with hyperglycemia, without long-term current use of insulin (CMS/HCC) (Primary Dx)Dyslipidemia (CMS/HCC) (Primary Dx); Adult hypothyroidism (CMS/HCC)Elevated liver function tests (Primary Dx)Start: 10-07-2024 End: 52-39-0295Gckgwx outpatient visit 25 minutesKar Yadav MD Work Phone: [facility] CWM FMComment on above:Benign essential hypertension (CMS/HCC) (Primary Dx); Adult hypothyroidism (CMS/HCC); Pre-diabetes; Annual physical exam; Motion sickness, initial encounterStart: 10-07-2024 End: 21-51-5176Mxwszol encounter procedureKar Yadav MD Work Phone: [facility] HealthcareStart: 10-07-2024 End: 57-10-8474bewupqzrozPELZ NADERERNot AvailableStart: 10-07-2024 End: 75-35-5366Ssuzat Markie Yadav MD Work Phone: [facility] CWM FMStart: 10-07-2024 End: 07-25-9181Rckhqt Markie Yadav MD Work Phone: [facility] CWM FMStart: 04-15-2024 End: 65-37-1707Yxykpqd encounter statusWilldawson Blackburn DO Work Phone: n[facility] HealthcareStart: 04-15-2024 End: 30-55-7211Vlgvcpbx preventive med est patient 40-64yrsWilliam Bakari Blackburn DO Work Phone: [facility] OBComment on above:Encounter for gynecological examination without abnormal finding (Primary Dx); Screening for malignant neoplasm of cervix; Breast cancer screening by mammogramStart: 04-04-2024 End: 12-15-6691Twcjvn Markie Yadav MD Work Phone: [facility] CWM FMStart: 04-04-2024 End: 63-74-8145Gumsrd Markie Yadav MD Work Phone: [facility] CWRadha FMStart: 04-04-2024 End: 05-31-6743Wxkqbyr encounter procedureKar Yadav MD Work Phone: [facility] Work Phone: Start: 04-04-2024 End: 22-09-5042Lwfvsomn preventive med est patient 40-64yrsMarc Leif SHI Work Phone: [facility] CWM FMComment on above:Annual physical exam (Primary Dx)Start: 08-07-2023 End: 66-13-5341Uhftav outpatient visit 15 minutesKar Yadav MD Work Phone: [facility] CWM FMComment on above:Acute bronchitis due to other specified organisms (Primary Dx)Start: 94-38-4751Ghivsw flowsheetKar Yadav MD Work Phone: [facility] CWM FMStart: 67-07-4247Jgmbpl flowsheetKar Yadav MD Work Phone: [facility] CWM FMStart: 07-17-2023 End: 26-45-7119Hrptkxnrw Result EncounterKar Yadav MD Work Phone: [facility] External Department UnsolicitedStart: 07-17-2023 End: 88-41-0748Yltdfjedi Result EncounterKar Yadav MD Work Phone: [facility] External Department UnsolicitedStart: 05-16-2022 End: 98-79-8458fkvgosnfrtTB KAR SALMONRFacility:U7Rsuuu: 20-16-7971Avelykric for general adult medical examination without abnormal findingsDR KAR YADAV [facility] Centertart: 04-19-2022 End: 01-08-1339vtusxnedfmUA KAR SALMONRFacility:F3Pxqrk: 04-19-2022 End: 02-54-8908Vqdgsaxjm for general adult medical examination without abnormal findingsDR KAR JOHNSONacility:H1 Procedures DateProcedureProcedure DetailPerforming ClinicianStart: 30-63-3120XQ RIGHT UPPER QUADRANTKar Yadav MD Work Phone: start: 02-49-8726NIX CBC WITH AUTO DIFFKar Yadav MD Work Phone: Start: 92-84-2872EJ TOMOSYNTHESIS SCREENING BIMarc Leif SHI Work Phone: Start: 85-32-9477RldwplgvfrlPyfi Naderer MD Work Phone: Start: 67-73-6615Hsdgbuzxrko observation [Identifier] in Cervix by Cyto stainKar Yadav MD Work Phone: Plan of Treatment DateCare ActivityDetailAuthorStart: 34-68-0624Ombwtpnni for malignant neoplasm of cervixNOMS HealthcareStart: 15-68-7510Qcidlcfsy for malignant neoplasm of cervixNOMS HealthcareStart: 35-17-8546Usdyugoxo for malignant neoplasm of cervix [facility] HealthcareStart: 46-87-7573Jioixaohl for malignant neoplasm of colonNOMS HealthcareStart: 04-26-2026 End: 84-99-0444Nancjvb encounter looklzedf95/26/2026 11:00 AM EDT Office Visit NICHOLAS L[facility] [address] [place] [address] Ashlee Blackburn DO [address] [place] [address] NOMRamya CHRISGYNStart: 77-15-4280Vgjdovmud for malignant neoplasm of cervixPap SmearNOMS HealthcareStart: 04-28-2025 End: 18-40-8445Xisjhic encounter mvrvfbxbe19/28/2025 10:00 AM EDT Office Visit NOMRam[facility] [address] [place] [address] Kar Yadav MD [address] [place] [address] [facility] FMStart: 04-20-2025 End: 54-87-1615Sxtcimj encounter procedureNOMS SWS OBStart: 29-99-5688Nqrbghgwht A1c measurementDiabetes: Hemoglobin T9FTPCJ HealthcareStart: 03-02-2025 Influenza vaccinationNOMA HealthcareStart: 01-23-2025 End: 78-67-4306Vnofubg encounter procedureNOMS GALLOWAY FMComment on above:Arrived Start: 12-31-2024 End: 37-32-2060Xyikvbf encounter vngarvakx96/02/2025 11:15 AM EDT Office Visit [facility] [address] [place] [address] Kar Yadav MD [address] [place] [address] ArrivedNOMS GALLOWAY FMComment on above:ArrivedStart: 11-20-2024 End: 82-31-3223Oksnwby encounter /22/2025 11:15 AM EDT Office Visit [facility] [address] [place] [address] Kar Yadav MD [address] [place] [address] NOMRamya [facility] FMStart: 10-09-2024 End: 47-41-9781Cupdcgmmo 1996 panel - SerumHepatitis panel, acute Lab Routine Elevated liver function tests Expected: 10/09/2024 (Approximate), Expires: 10/09/2025[facility] HospitalComment on above:Expected: 10/09/2024 (Approximate), Expires: 10/09/2025Start: 10-09-2024 End: 46-32-5199XL Abdomen limitedUS LIVER Imaging Routine Elevated liver function tests Expected: 10/09/2024, Expires: 10/09/2025[facility] Work Phone: Comment on above:Expected: 10/09/2024, Expires: 10/09/2025Start: 10-07-2024 End: 60-49-4150Iiakmux encounter huysbszmf20/08/2025 2:15 PM EDT Office Visit [facility] [address] [place] [address] Kar Yadav MD [address] [place] [address] [facility] FMComment on above:ArrivedStart: 10-07-2024 End: 20-19-2870Ftmcp metabolic 1998 panel - Serum or PlasmaBasic metabolic panel Lab Routine Annual physical exam Expected: 10/07/2024 (Approximate), Expires: 10/07/2025[facility] HealthcareComment on above:Expected: 10/07/2024 (Approximate), Expires: 10/07/2025Start: 10-07-2024 End: 00-17-9564BFU W Auto Differential panel - BloodCBC and differential Lab Routine Annual physical exam Expected: 10/07/2024 (Approximate), Expires: 0 10/07/2025[facility] HealthcareComment on above:Expected: 10/07/2024 (Approximate), Expires: 10/07/2025Start: 10-07-2024 End: 74-74-4673Aqcikhkgdm A1c/Hemoglobin.total in BloodHemoglobin A1c Lab Routine Annual physical exam Expected: 10/07/2024 (Approximate), Expires: 10/07/2025[facility] Healthcare Work Phone: Comment on above:Expected: 10/07/2024 (Approximate), Expires: 10/07/2025Start: 10-07-2024 End: 91-75-9822Hzqlhqi function 2000 panel - Serum or PlasmaHepatic function panel Lab Routine Annual physical exam Expected: 10/07/2024 (Approximate), Expires: 10/07/2025[facility] HealthcareComment on above:Expected: 10/07/2024 (Approximate), Expires: 10/07/2025Start: 10-07-2024 End: 19-74-9914Laqfk 1996 panel - Serum or PlasmaLipid panel Lab Routine Annual physical exam Expected: 10/07/2024 (Approximate), Expires: 10/07/2025[facility] HealthcareComment on above:Expected: 10/07/2024 (Approximate), Expires: 10/07/2025Start: 10-07-2024 End: 25-03-5587Rpgbtznnjec [Units/volume] in Serum or PlasmaTSH Lab Routine Annual physical exam Expected: 10/07/2024 (Approximate), Expires: 10/07/2025[facility] HealthcareComment on above:Expected: 10/07/2024 (Approximate), Expires: 10/07/2025Start: 10-07-2024 End: 70-08-1091Okbuabfpl (T4) free [Mass/volume] in Serum or PlasmaT4, free Lab Routine Adult hypothyroidism (CMS/HCC) Expected: 10/07/2024 (Approximate), Expires: 10/07/2025N[facility] HealthcareComment on above:Expected: 10/07/2024 (Approximate), Expires: 10/07/2025Start: 10-06-2024 End: 32-31-5078Xbtalit encounter oqblulcaj41/07/2025 9:00 AM EDT [facility] [address] [place] [address] Kar Yadav MD [address] [place] [address] [facility] FMStart: 68-85-2855Rxhncfxbp for malignant neoplasm of colon Colorectal Cancer ScreeningNOMS HealthcareComment on above:Postponed from 1972 (Patient Refused)Start: 27-80-4115Vjdadvuwo for malignant neoplasm of breastMammogramNOMS HealthcareStart: 04-15-2024 End: 57-86-7010Rhpdjin encounter euxeykmhe03/15/2024 10:15 AM EDT Office Visit [facility] [address] [place] [address] Ashlee Blackburn DO [address] [place] [address] NOMS SWS OBStart: 04-04-2024 End: 63-85-5279Bsuxvhq encounter mwhhkubte90/04/2024 10:45 AM EDT Office Visit [facility] [address] [place] [address] Kar Yadav MD [address] [place] [address] [facility] FMComment on above:ArrivedStart: 92-07-6426Jbounisty vaccinationInfluenza Vaccine (#1)[facility] HealthcareStart: 08-07-2023 End: 93-46-7169Mggonnx encounter tsjfbywzo47/06/2024 3:45 PM EST Office Visit [facility] [address] [place] [address] Kar Yadav MD [address] [place] [address] [facility] FMComment on above:ArrivedStart: 14-98-3915Mjhpodfka vaccinationInfluenza Vaccine (#1)[facility] HospitalStart: 39-76-9949Wapurvzbe for malignant neoplasm of cervixPap SmearSalem Memorial District HospitalStart: 00-70-3882Kvrdf screening for proteinDiabetes: Urine Protein ScreeningSalem Memorial District HospitalStart: 58-66-0477Beaweytr screeningDiabetes: Retinopathy ScreeningSalem Memorial District HospitalStart: 60-86-2458Chfltiorcb A1c measurementDiabetes: Hemoglobin P4OZKGHSalem Memorial District Hospital Start: 15-17-8330Hzahazvxl for malignant neoplasm of colonNOMA HealthcareIGP, APT HPV,RFX 16/18,45IGP, APT HPV,RFX 16/18,45 Lab Routine Screening for malignant neoplasm of cervix Ordered: 04/15/2024[facility] Work Phone: comment on above:Ordered: 04/15/2024IGP, APT HPV,RFX 16/18,45IGP, APT HPV,RFX 16/18,45 Lab Routine Screening for malignant neoplasm of cervix Ordered: 04/20/2025[facility] Work Phone: Comment on above:Ordered: 04/20/2025 Payers DatePayer CategoryPayerPolicy [id number] Cross Blue ShieldBCBS [id number] BCBS [id number] 2021-Present [phone] [address] [place] [address] [id number] [id number] 2.840.1.324851.3.57[id number] 2.0.1.773758.3.57[id number] 2.0.1.438866.3.57[id number] 2.160.1.996663.3.57[id number] 2.160.1.313428.3.57[id number] 2.840.1.342206.3.579.2.[id number] Social History DateTypeDetailFacilityStart: 27-59-5263Euxmvcq smoking status NHISNever smoked tobaccoNOMS HealthcareStart: 84-56-8366Wmgsonp use and exposureSmokeless tobacco non-userNOMS HealthcareStart: 04-17-2023 End: 34-15-7267Germgro intakeEx-drinker (finding)[facility] HealthcareStart: 08-07-2023 End: 82-41-9313Kykznvr of Social functionNOMS HealthcareStart: 08-07-2023 End: 48-48-7277Icirwofjote, Afraid, Rape, and Kick questionnaire [HARK]N[facility]S HealthcareWithin the last year, have you been afraid of your partner or ex-partner?NoNOMS HealthcareDo you belong to any clubs or organizations such as adventist groups, [employer], [employer] or athletic groups, or school groups?YesNOMS HealthcareAre you now , , , , never or living with a partner?DivorcedNOMS HealthcareHow often to you have a drink containing alcohol?NeverNOMS HealthcareStart: [id number] many standard drinks containing alcohol do you have on a typical day?Patient does not drinkNOMS HealthcareDo you feel stress - tense, restless, nervous, or anxious, or unable to sleep at night because yourmind is troubled all the time - these days [OSQ] Not at allNOMA Healthcare(I/We) worried whether (my/our) food would run out before (I/we) got money to buy more.Never trueNOMA HealthcareStart: 1970 Sex Assigned At BirthNot on fileNOMS HealthcareDo you feel stress - tense, restless, nervous, or anxious, or unable to sleep at night because yourmind is troubled all the time - these days [OSQ]Only a littleNOMA Healthcare Medical Equipment Procedure CodeEquipment CodeEquipment Original TextEquipment IdentifierDates1 each by In Vitro route in the morning and 1 each in the evening and 1 each before bedtime.[id number]: 12-31-2024 Functional Status ZwvyTysevlcuqdWpwpziJvwqsmoe90-75-2758Iuxie score [AUDIT-C]0 04/20/2025 11:20 AM EDT Thereas Mendiola MARQUISE Mcsvjizxry98-25-0519Djrzsxt Health Questionnaire 2 item (PHQ-2) [Reported][facility] HospitalFthtwybiji06-04-1245Kntukff Health Questionnaire 2 item (PHQ-2) [Reported][facility] Clinical Notes 08-07-2023 to 04-20-2025 Note Date & QqilUwybHuxizdaa77-50-7657 History of Present illness Narrative* Kaycee Spicer MA - 04/20/2025 11:15 AM EDT Images from the original note were not included. Ashlee Blackburn, DO Obstetrics and Gynecology Wendie Hubbard 1970 04/20/25 [id number] Yearly Wellness Exam Chief Complaint Patient presents [...] costovertebral angle tenderness, no obvious scoliosis/kyphosis. 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 -mild atrophic mucosa, multip, cervix [...] Seasonal allergies Varicella zoster documented in this encounterSalem Memorial District HospitalErbhnoajlh62-34-8721 History of Present illness Narrative* Kar Yadav [...] 5 MG/0.5ML solution auto-injector documented in this encounterSalem Memorial District HospitalShxpcrgtqr19-47-7231 History of Present illness Narrative* Kar Yadav [...] 20 MEQ ER tablet documented in this encounterSalem Memorial District HospitalMljhlvnhct27-16-8086 History of Present illness Narrative* Kar Yadav [...] patch 72 hour patch documented in this encounterSalem Memorial District HospitalNlqsgpnupq94-02-5648 History of Present illness Narrative* Kaycee Spicer MA - 04/15/2024 10:15 AM EDT Images from the original note were not included. Ashlee Blackburn, DO Obstetrics and Gynecology [facility] 1970 04/15/24 [id number] Yearly Wellness Exam Chief Complaint Patient presents [...] costovertebral angle tenderness, no obvious scoliosis/kyphosis. 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 documented in this encounterSalem Memorial District HospitalYcntctbbzw64-50-7703 History of Present illness Narrative* Kar Yadav MD - 04/04/2024 11:42 AM EDTAssociated Problem(s): Annual physical exam Due for labs. Cologuard normal May 2023. Discussed proper diet and regular aerobic exercise. Need aerobic exercise 5-6 days a week for 30 minutes at a time. Smaller portions and limit total calories. Tetanus every 10 years. Advised not to smoke. * aKr Yadav MD - 04/04/2024 10:45 AM EDT [...] Advised not to smoke. documented in this encounterSalem Memorial District HospitalPwqftblbus99-59-8407 History of Present illness Narrative* Kar Yadav [...] Primary Routine general medical examination at a [facility] care facility Benign essential hypertension- Primary Essential hypertension, benign Adult hypothyroidism Unspecified hypothyroidism Pre-diabetes Other abnormal glucose Annual physical exam Routine general medical examination at a [facility] Motion sickness, initial encounter Type 2 diabetes [...] Primary Routine general medical examination at a [facility] Benign essential hypertension- Primary Essential hypertension, benign Adult hypothyroidism Unspecified hypothyroidism Pre-diabetes Other abnormal glucose Annual physical exam Routine general medical examination at a [facility] Motion sickness, initial encounter Type 2 diabetes [...] Primary Routine general medical examination at a [facility] care facility Benign essential hypertension- Primary Essential hypertension, benign Adult hypothyroidism Unspecified hypothyroidism Pre-diabetes Other abnormal glucose Annual physical exam Routine general medical examination at a [facility] Motion sickness, initial encounter Type 2 diabetes [...] of insulin (HCC) documented in this encounter [facility] HealthcareEvaluation note* Diagnosis Benign essential hypertension- Primary [...] screening by mammogram documented in this encounter [facility] Healthcare Summary Purpose Family History No Family History Records FoundNo Family History Records Found Advance Directives No Advanced Directives Records FoundNo Advanced Directives Records Found Additional Source Comments INFORMATION SOURCE (unrecogn ized section and content) DATE CREATED AUTHOR 05/20/2022 [facility] DATE CREATED AUTHOR AUTHOR'S ORGANIZ ATION 04/21/2025 [facility] EPIC Care Teams (unrecognized sec tion and content) Team MemberRelationshipSpecialtyStart DateEnd Date Kar Yadav MD PCP - Sglqiwe20/3/23 Kar Yadav MD [address] [place] [address] PCP - [facility]07/02/23Team MemberRelationshipSpecialtyStart DateEnd Date Kar Yadav MD [address] [place] [address] PCP - [place] [employer]07/02/23 Kar Yadav MD [address] [place] [address] PCP - GeneralFamily Medicine08/07/23Team MemberRelationshipSpecialtyStart DateEnd Date Kar Yadav MD [address] [place] [address] PCP - [place] Znpfgelgxs82/1/23 Kar Yadav MD [address] [place] [address] PCP - Generalmily Medicine08/07/23Team MemberRelationshipSpecialtyStart DateEnd Date Kar Yadav MD [address] [place] [address] PCP - [place] Eyzjjpvbyw32/1/23 Kar Yadav MD [address] [place] [address] PCP - Generalmily Medicine08/07/23Team MemberRelationshipSpecialtyStart DateEnd Date Kar Yadav MD [address] [place] [address] PCP - [place] Yximylgqxe95/1/23 Kar Yadav MD [address] [place] [address] PCP - GeneralFamily Medicine08/07/23Team MemberRelationshipSpecialtyStart DateEnd Date Kar Yadav MD [address] [place] [address] PCP - [place] Hwwpmmslbb62/1/23 Kar Yadav MD [address] [place] [address] PCP - GeneralFamily Medicine08/07/23Team MemberRelationshipSpecialtyStart DateEnd Date Kar Yadav MD [address] [place] [address] PCP - [place] Utibjsqzie19/1/23 Kar Yadav MD [address] [place] [address] PCP - [facility] Medicine08/07/23Team MemberRelationshipSpecialtyStart DateEnd Date Kar Yadav MD [address] [place] [address] PCP - [place] Sseuvcbrze77/1/23 Kar Yadav MD [address] [place] [address] PCP - Generalmily Medicine08/07/23Team MemberRelationshipSpecialtyStart DateEnd Date Kar Yadav MD [address] [place] [address] PCP - [place] Oimhudqvce84/1/23 aKr Yadav MD [address] [place] [address] PCP - GeneralFamily Medicine08/07/23Team MemberRelationshipSpecialtyStart DateEnd Date Kar Yadav MD [address] [place] [address] PCP - [place] Wbybvdxxqp71/1/23 Kar Yadav MD [address] [place] [address] PCP - GeneralFamily Medicine08/07/23Team MemberRelationshipSpecialtyStart DateEnd Date Kar Yadav MD [address] [place] [address] PCP - GeneralFamily Medicine08/07/23Team MemberRelationshipSpecialtyStart DateEnd Date Kar Yadav MD [address] [place] [address] PCP - GeneralFamily Medicine08/07/23Team MemberRelationshipSpecialtyStart DateEnd Date Kar Yadav MD [address] [place] [address] PCP - GeneralFamily Medicine08/07/23Team MemberRelationshipSpecialtyStart DateEnd Date Kar Yadav MD [address] [place] [address] PCP - GeneralFamily Medicine08/07/23Team MemberRelationshipSpecialtyStart DateEnd Date Kar Yadav MD [address] [place] [address] PCP - [facility]08/07/23Team MemberRelationshipSpecialtyStart DateEnd Date Kar Yadav MD [address] [place] [address] PCP - [facility]08/07/23Team MemberRelationshipSpecialtyStart DateEnd Date Kar Yadav MD PCP - [facility]08/07/23Team MemberRelationshipSpecialtyStart DateEnd Date Kar Yadav MD PCP - Rukelkn02/3/232 Kar Yadav MD [address] [place] [address] PCP - [place] Errcrtzqbz66/1/234 Kar Yadav MD [address] [place] [address] PCP - [facility]08/07/23 Reason for Visit (unrecogniz ed section and content) ReasonCommentsCoughReasonCommentsAnnual ExamwellnessReasonCommentsGynecologic ExamLMP: 2020HRT: noneLast pap 04-10-23 neg.Last mammogram 07-16-23 [facility] - PCP ordersDenies breast, urinary, or bowel concerns.ReasonCommentsFollow-up6 MReason CommentsFollow-upBlood sugars running very highReasonCommentsFollow-up2M F/UMANAGING SUGARReasonOnset DateCommentsMed Wlfvgq2202/27/2025ReasonComments Gynecologic ExamLMP: 2020HRT: noneLast pap 04-15-24 neg.Last [...] BE BASED ON THE PRIMARY CLINICAL RECORDS. [facility]. provides no warranty or guarantee of the accuracy or completeness of information in this document.
== END 2025-05-11 13:06 | disposition home or self-care (01) ==
LOC: MAMMO 13:05
PROVIDERS: PCP Family Medicine; Visit Provider Family Medicine
DX: Z12.31 Encounter for screening mammogram for malignant neoplasm of breast (principal); Z80.8 Family history of malignant neoplasm of other organs or systems
CPT/HCPCS: 77063; 77067